=== PATIENT | male | born 1955 | race Two or more races ===

== ENCOUNTER 2020-03-02 10:47 | Outpatient (REF) | payer OTHER, SELFPAY | END 2020-03-02 10:48 | disposition home or self-care (01) | LOC: HO.LAB 10:47 | PROVIDERS: PCP Internal Medicine; Visit Provider Internal Medicine | DX: Z20.828 Contact with and (suspected) exposure to other viral communicable diseases (principal) | CPT/HCPCS: C9803; U0003 ==

== ENCOUNTER 2020-03-07 09:38 | Outpatient (REF) | payer OTHER, SELFPAY ==
[2020-03-07 10:24] LABS: Basophils Percent Auto 0.4 % (0-2); Imm Gran Abs Auto 0.02 X10*3/uL (0.00-0.03); Imm Gran Pct Auto 0.2 % (0.0-0.4); Red Cell Distribution Width 13.7 % (11.0-16.0)
[2020-03-07 10:26] LABS: Eosinophils Absolute Auto 0.1 X10*3/uL (0.0-0.4); Eosinophils Percent Auto 0.9 % (0-4); Hematocrit 38.4 % (42-52); Hemoglobin 12.4 g/dl (14.0-18.0); Lymphocytes Absolute Auto 2.5 X10*3/uL (1.2-4.9); Lymphocytes Percent Auto 29.9 % (20-40); Mean Corpuscular HGB Conc 32.3 g/dl (31.0-36.0); Mean Corpuscular Hemoglobin 28.2 pg (27.0-33.0); Mean Corpuscular Volume 87.5 fL (80-98); Monocytes Absolute Auto 0.6 X10*3/uL (0.1-1.2); Monocytes Percent Auto 7.1 % (2-11); Neutrophils Absolute Auto 5.1 X10*3/uL (2.0-8.3); Neutrophils Percent Auto 61.5 % (45-73); Platelet Count 172 X10*3/uL (160-400); Red Blood Count 4.39 X10*6/uL (4.60-5.80); White Blood Count 8.2 X10*3/uL (4.8-10.8)
[2020-03-07 11:07] LABS: Microalbum/Creatinine Ratio Ur 84.9 ug/mg cr
[2020-03-07 11:08] LABS: Alanine Aminotransferase 23 U/L (0-40); Albumin Level 4.3 g/dL (3.5-5.0); Alkaline Phosphatase 77 U/L (39-117); Anion Gap 13 (12-20); Aspartate Amino Transferase 16 U/L (5-37); Bilirubin Total 0.9 mg/dL (0.0-1.0); Blood Urea Nitrogen 28 mg/dL (9-16); Calcium 9.3 mg/dL (8.4-10.2); Carbon Dioxide 29 mmol/L (22-29); Chloride 102 mmol/L (96-108); Cholesterol 123 mg/dL; Estimated Glomerular Filt Rate > 60; Glucose Fasting 123 mg/dL (60-99); HDL Cholesterol 37 mg/dL; LDL Cholesterol Calculated 66 mg/dl; Potassium 4.7 mmol/l (3.3-5.1); Sodium 139 mmol/L (135-145); Total Protein 6.5 g/dL (6.5-8.0); Triglycerides 100 mg/dL
[2020-03-07 11:20] LABS: Folate 12.4 ng/mL (> or = 4.0); Vitamin B12 681 pg/mL (200-900)
[2020-03-07 11:30] LABS: Prostate Specific Antigen 1.67 ng/mL (<0.05-4.0); T4 Thyroxine 6.4 ug/dL (4.5-12.0); Thyroid Stimulating Hormone 2.15 uIU/mL (0.32-4.0)
== END 2020-03-07 09:39 | disposition home or self-care (01) ==
LOC: HO.10HDL 09:38
PROVIDERS: Visit Provider Internal Medicine
DX: E11.65 Type 2 diabetes mellitus with hyperglycemia (principal); E66.9 Obesity, unspecified; K21.9 Gastro-esophageal reflux disease without esophagitis; C67.9 Malignant neoplasm of bladder, unspecified; I10 Essential (primary) hypertension; E78.00 Pure hypercholesterolemia, unspecified
CPT/HCPCS: 36415; 80053; 80061; 82043; 82607; 82746; 84153; 84436; 84443; 85025

== ENCOUNTER 2020-09-14 08:50 | Outpatient (REF) | payer OTHER, SELFPAY ==
[2020-09-14 09:52] LABS: MANUAL DIFF FLAG NO
[2020-09-14 10:05] LABS: Basophils Percent Auto 0.3 % (0-2); Eosinophils Absolute Auto 0.1 X10*3/uL (0.0-0.4); Eosinophils Percent Auto 1.4 % (0-4); Hematocrit 39.9 % (42-52); Hemoglobin 12.7 g/dl (14.0-18.0); Imm Gran Abs Auto 0.03 X10*3/uL (0.00-0.03); Imm Gran Pct Auto 0.3 % (0.0-0.4); Lymphocytes Absolute Auto 2.6 X10*3/uL (1.2-4.9); Lymphocytes Percent Auto 28.2 % (20-40); Mean Corpuscular HGB Conc 31.8 g/dl (31.0-36.0); Mean Corpuscular Hemoglobin 28.3 pg (27.0-33.0); Mean Corpuscular Volume 89.1 fL (80-98); Mean Platelet Volume 13.2 fL (9.4-12.4); Monocytes Absolute Auto 0.8 X10*3/uL (0.1-1.2); Monocytes Percent Auto 8.7 % (2-11); Neutrophils Absolute Auto 5.6 X10*3/uL (2.0-8.3); Neutrophils Percent Auto 61.1 % (45-73); Platelet Count 188 X10*3/uL (160-400); Red Blood Count 4.48 X10*6/uL (4.60-5.80); Red Cell Distribution Width 13.2 % (11.0-16.0); White Blood Count 9.1 X10*3/uL (4.8-10.8)
[2020-09-14 10:18] LABS: Alanine Aminotransferase 16 U/L (0-40); Albumin Level 4.3 g/dL (3.5-5.0); Alkaline Phosphatase 88 U/L (39-117); Anion Gap 16 (12-20); Aspartate Amino Transferase 13 U/L (5-37); Blood Urea Nitrogen 22 mg/dL (9-16); Calcium 9.6 mg/dL (8.4-10.2); Carbon Dioxide 26 mmol/L (22-29); Chloride 106 mmol/L (96-108); Cholesterol 137 mg/dL; Estimated Glomerular Filt Rate 58; Glucose Random 98 mg/dL (60-115); HDL Cholesterol 42 mg/dL; LDL Cholesterol Calculated 72 mg/dl; Potassium 4.6 mmol/L (3.3-5.1); Sodium 143 mmol/L (135-145); Total Protein 6.5 g/dL (6.5-8.0); Triglycerides 118 mg/dL
[2020-09-14 10:22] LABS: Estimated Average Glucose 137 mg/dL; Hemoglobin A1C 149.6421 umol/L; Hemoglobin A1c % 6.4 %
[2020-09-14 10:39] LABS: Prostate Specific Antigen Scr 1.45 ng/mL (<0.05-4.0); Thyroid Stimulating Hormone 1.65 uIU/mL (0.32-4.0)
== END 2020-09-14 08:51 | disposition home or self-care (01) ==
LOC: HO.LAB 08:50
PROVIDERS: PCP Internal Medicine; Visit Provider Internal Medicine
DX: Z12.5 Encounter for screening for malignant neoplasm of prostate (principal); E11.65 Type 2 diabetes mellitus with hyperglycemia; E78.00 Pure hypercholesterolemia, unspecified
CPT/HCPCS: 36415; 80053; 80061; 83036; 84153; 84443; 85025

== ENCOUNTER 2020-11-20 09:00 | Outpatient (REF) | payer OTHER, SELFPAY ==
[2020-11-20 12:23] LABS: Urine Cytology See Pathology rpt
== END 2020-11-20 09:01 | disposition home or self-care (01) ==
LOC: CF 09:00
PROVIDERS: PCP Internal Medicine; Visit Provider Urology
DX: C67.9 Malignant neoplasm of bladder, unspecified (principal)
CPT/HCPCS: 52000; 88112; 99212

== ENCOUNTER → 2021-01-31 09:27 | Outpatient (BNVA) | payer MEDICARE, MEDICAID, SELFPAY | PROVIDERS: PCP Internal Medicine; Referring Provider Internal Medicine; Visit Provider Surgery | DX: K52.9 Noninfective gastroenteritis and colitis, unspecified (principal); K21.9 Gastro-esophageal reflux disease without esophagitis; R19.5 Other fecal abnormalities; E11.65 Type 2 diabetes mellitus with hyperglycemia; E11.42 Type 2 diabetes mellitus with diabetic polyneuropathy; I12.9 Hypertensive chronic kidney disease with stage 1 through stage 4 chronic kidney disease, or unspecified chronic kidney disease; E78.00 Pure hypercholesterolemia, unspecified; E66.9 Obesity, unspecified; Z68.29 Body mass index [BMI] 29.0-29.9, adult; Z88.1 Allergy status to other antibiotic agents; Z88.8 Allergy status to other drugs, medicaments and biological substances; Z79.4 Long term (current) use of insulin; Z79.899 Other long term (current) drug therapy | CPT/HCPCS: 99202 ==

== ENCOUNTER 2021-04-27 09:58 | Emergency (ER) | payer OTHER, MEDICAID, SELFPAY ==
[2021-04-27 10:37] VITALS: BP 180/89; PULSE 72; RESP 18; TEMP 36.8; O2SAT 100; BMI 29.8
== END 2021-04-27 18:32 | disposition left against medical advice (07) ==
PROVIDERS: Emergency Provider Emergency Medicine; PCP Internal Medicine
DX: R19.7 Diarrhea, unspecified (principal); R10.9 Unspecified abdominal pain
CPT/HCPCS: 99282; 99283

== ENCOUNTER 2021-04-29 07:51 | Outpatient (REF) | payer MEDICARE, SELFPAY ==
[2021-04-29 08:02] LABS: MANUAL DIFF FLAG NO
[2021-04-29 08:39] LABS: Basophils Percent Auto 0.3 % (0-2); Eosinophils Absolute Auto 0.1 X10*3/uL (0.0-0.4); Eosinophils Percent Auto 1.5 % (0-4); Hematocrit 38.8 % (42.0-52.0); Hemoglobin 12.5 g/dl (14.0-18.0); Imm Gran Abs Auto 0.03 X10*3/uL (0.00-0.03); Imm Gran Pct Auto 0.3 % (0.0-0.4); Lymphocytes Absolute Auto 2.3 X10*3/uL (1.2-4.9); Mean Corpuscular HGB Conc 32.2 g/dl (31.0-36.0); Mean Corpuscular Hemoglobin 29.1 pg (27.0-33.0); Mean Corpuscular Volume 90.4 fL (80.0-98.0); Mean Platelet Volume 12.9 fL (9.4-12.4); Monocytes Absolute Auto 0.8 X10*3/uL (0.1-1.2); Monocytes Percent Auto 8.8 % (2-11); Neutrophils Absolute Auto 6.3 x10*3/uL (2.0-8.3); Neutrophils Percent Auto 65.1 % (45-73); Platelet Count 190 X10*3/uL (160-400); Red Blood Count 4.29 X10*6/uL (4.60-5.80); Red Cell Distribution Width 13.2 % (11.0-16.0); White Blood Count 9.6 X10*3/uL (4.8-10.8)
[2021-04-29 09:00] LABS: Alanine Aminotransferase 14 U/L (0-40); Albumin Level 4.2 g/dL (3.5-5.0); Alkaline Phosphatase 80 U/L (39-117); Anion Gap 11 (12-20); Aspartate Amino Transferase 12 U/L (5-37); Bilirubin Total 0.9 mg/dL (0.0-1.0); Blood Urea Nitrogen 21 mg/dL (9-16); Calcium 9.4 mg/dL (8.4-10.2); Carbon Dioxide 28 mmol/L (22-29); Chloride 106 mmol/L (96-108); Cholesterol 122 mg/dL; Estimated Glomerular Filt Rate 51; Glucose Random 177 mg/dL (60-115); HDL Cholesterol 36 mg/dL; LDL Cholesterol Calculated 65 mg/dl; Potassium 4.4 mmol/L (3.3-5.1); Sodium 141 mmol/L (135-145); Total Protein 6.5 g/dL (6.5-8.0); Triglycerides 108 mg/dL
[2021-04-29 09:23] LABS: Free T4 (Free Thyroxine) 0.85 ng/dL (0.71-1.85); Prostate Specific Antigen Scr 2.42 ng/mL (<0.05-4.0); Thyroid Stimulating Hormone 3.04 uIU/mL (0.32-4.0)
[2021-04-29 09:32] LABS: Microalbum/Creatinine Ratio Ur 58.7 ug/mg cr
[2021-04-29 09:34] LABS: Vitamin B12 793 pg/mL (200-900)
== END 2021-04-29 07:52 | disposition home or self-care (01) ==
LOC: HO.LAB 07:51
PROVIDERS: PCP Internal Medicine; Visit Provider Internal Medicine
DX: Z12.5 Encounter for screening for malignant neoplasm of prostate (principal); E11.65 Type 2 diabetes mellitus with hyperglycemia; E78.00 Pure hypercholesterolemia, unspecified
CPT/HCPCS: 36415; 80053; 80061; 82043; 82607; 82746; 84153; 84439; 84443; 85025

== ENCOUNTER 2021-07-24 12:24 | Outpatient (REF) | payer OTHER, SELFPAY ==
[2021-07-24 13:35] LABS: MANUAL DIFF FLAG NO
[2021-07-24 14:08] LABS: Basophils Percent Auto 0.4 % (0-2); Eosinophils Percent Auto 0.4 % (0-4); Hematocrit 37.6 % (42.0-52.0); Hemoglobin 12.2 g/dl (14.0-18.0); Imm Gran Abs Auto 0.02 X10*3/uL (0.00-0.03); Imm Gran Pct Auto 0.3 % (0.0-0.4); Lymphocytes Absolute Auto 1.7 X10*3/uL (1.2-4.9); Lymphocytes Percent Auto 24.1 % (20-40); Mean Corpuscular HGB Conc 32.4 g/dl (31.0-36.0); Mean Corpuscular Hemoglobin 28.8 pg (27.0-33.0); Mean Corpuscular Volume 88.9 fL (80.0-98.0); Mean Platelet Volume 13.3 fL (9.4-12.4); Monocytes Absolute Auto 0.6 X10*3/uL (0.1-1.2); Monocytes Percent Auto 7.7 % (2-11); Neutrophils Absolute Auto 4.9 x10*3/uL (2.0-8.3); Neutrophils Percent Auto 67.1 % (45-73); Platelet Count 158 X10*3/uL (160-400); Red Blood Count 4.23 X10*6/uL (4.60-5.80); Red Cell Distribution Width 13.3 % (11.0-16.0); White Blood Count 7.2 X10*3/uL (4.8-10.8)
[2021-07-24 14:39] LABS: Alanine Aminotransferase 15 U/L (0-40); Albumin Level 4.3 g/dL (3.5-5.0); Alkaline Phosphatase 84 U/L (39-117); Anion Gap 12 (12-20); Aspartate Amino Transferase 14 U/L (5-37); Bilirubin Total 1.3 mg/dL (0.0-1.0); Blood Urea Nitrogen 24 mg/dL (9-16); Calcium 9.8 mg/dL (8.4-10.2); Carbon Dioxide 27 mmol/L (22-29); Chloride 107 mmol/L (96-108); Estimated Glomerular Filt Rate 51; Glucose Random 184 mg/dL (60-115); Iron 101 mcg/dL (45-160); Percent Iron Saturation 34 % (15-50); Potassium 4.8 mmol/L (3.3-5.1); Sodium 141 mmol/L (135-145); Total Iron Binding Capacity 296 mcg/dL (228-428); Total Protein 6.7 g/dL (6.5-8.0); Unsaturated Iron Binding 195 ug/dL
[2021-07-24 15:01] LABS: Thyroid Stimulating Hormone 1.17 uIU/mL (0.32-4.0)
[2021-07-25 09:27] LABS: CDiff Gene PCR NEGATIVE (Negative)
== END 2021-07-24 12:25 | disposition home or self-care (01) ==
LOC: HO.LAB 12:24
PROVIDERS: PCP Internal Medicine; Referring Provider Internal Medicine; Visit Provider Physician Assistant
DX: Z01.818 Encounter for other preprocedural examination (principal); K59.09 Other constipation; R14.0 Abdominal distension (gaseous); K52.9 Noninfective gastroenteritis and colitis, unspecified
CPT/HCPCS: 36415; 80053; 83540; 84443; 85025; 87045; 87046; 87329; 87493; 99202

== ENCOUNTER 2021-11-26 09:10 | Outpatient (REF) | payer OTHER, SELFPAY ==
[2021-11-26 17:04] LABS: Urine Cytology See Pathology rpt
== END 2021-11-26 09:11 | disposition home or self-care (01) ==
LOC: HO.LAB 09:10
PROVIDERS: Visit Provider Urology
DX: C67.9 Malignant neoplasm of bladder, unspecified (principal); N40.1 Benign prostatic hyperplasia with lower urinary tract symptoms
CPT/HCPCS: 52000; 88112; 99212

== ENCOUNTER 2022-05-02 07:41 | Outpatient (REF) | payer OTHER, SELFPAY ==
--- NOTE | ~2022-05-02 | US_ITS ---
EXAMINATION: US ABDOMEN COMPLETE CLINICAL INFORMATION: Other specified abnormal findings of blood chemistry. COMPARISON: Ultrasound abdomen complete 02/17/2018. CT abdomen and pelvis 09/09/2017. Renal ultrasound 06/25/2011. TECHNIQUE: Real-time imaging of the abdominal viscera. FINDINGS: PANCREAS: Hyperechoic in appearance ABDOMINAL AORTA: The proximal, mid, and distal segments are normal in caliber. INFERIOR VENA CAVA: Visualized portions are normal. LIVER: The liver is normal in size. Diffuse increased echogenicity of the liver parenchyma. No focal hepatic lesion. There is no intrahepatic biliary duct dilatation seen. GALLBLADDER: Surgically absent. COMMON BILE DUCT: Normal in caliber measuring 0.4 cm in diameter. RIGHT KIDNEY: Benign-appearing 2.2 cm lower pole cyst. Benign-appearing mid pole 1.3 cm cyst. Followup imaging is not routinely recommended for benign appearing cysts. No hydronephrosis or renal calculi. The kidney measures 10.4 cm in maximum dimension. LEFT KIDNEY: Normal. No hydronephrosis. No renal calculi or focal parenchymal lesions. The kidney measures 10.9 cm in maximum dimension. SPLEEN: Normal. The spleen measures 9.8 cm in maximum dimension. FREE FLUID: None. US/US abdomen complete IMPRESSION: 1. Diffuse increased echogenicity of the liver parenchyma. This is a nonspecific finding and may reflect hepatic steatosis. 2. Hyperechoic appearance of the pancreas. Recommend correlation with amylase and lipase. 3. Benign-appearing right renal cysts. Followup imaging is not routinely recommended for benign appearing cysts.
== END 2022-05-02 07:42 | disposition home or self-care (01) ==
LOC: HO.US 07:41
PROVIDERS: Visit Provider Internal Medicine
DX: R10.9 Unspecified abdominal pain (principal); R79.89 Other specified abnormal findings of blood chemistry
CPT/HCPCS: 76700

== ENCOUNTER 2022-06-02 08:58 | Outpatient (REF) | payer OTHER, SELFPAY ==
[2022-06-02 09:08] LABS: MANUAL DIFF FLAG NO
[2022-06-02 09:45] LABS: Basophils Percent Auto 0.5 % (0-2); Eosinophils Absolute Auto 0.2 X10*3/uL (0.0-0.4); Eosinophils Percent Auto 2.7 % (0-4); Hematocrit 37.3 % (42.0-52.0); Hemoglobin 12.3 g/dl (14.0-18.0); Imm Gran Abs Auto 0.03 X10*3/uL (0.00-0.03); Imm Gran Pct Auto 0.4 % (0.0-0.4); Immature Retic Fraction 13.6 % (2.3-13.4); Lymphocytes Absolute Auto 2.6 X10*3/uL (1.2-4.9); Lymphocytes Percent Auto 30.9 % (20-40); Mean Corpuscular Hemoglobin 29.2 pg (27.0-33.0); Mean Corpuscular Volume 88.6 fL (80.0-98.0); Mean Platelet Volume 12.8 fL (9.4-12.4); Monocytes Absolute Auto 0.8 X10*3/uL (0.1-1.2); Monocytes Percent Auto 9.3 % (2-11); Neutrophils Absolute Auto 4.8 x10*3/uL (2.0-8.3); Neutrophils Percent Auto 56.2 % (45-73); Platelet Count 186 X10*3/uL (160-400); Red Blood Count 4.21 X10*6/uL (4.60-5.80); Red Cell Distribution Width 12.4 % (11.0-16.0); Retic HGB Equivalent 33.9 pg (30.0-35.0); Reticulocyte Percent 1.4 % (0.5-1.8); White Blood Count 8.5 X10*3/uL (4.8-10.8)
[2022-06-02 10:13] LABS: Creatinine Urine 181.39 mg/dL
[2022-06-02 10:15] LABS: Appearance Urine Clear; Color Urine Yellow; Glucose Urine UA Negative (Negative); Leukocyte Esterase Urine Negative (Negative); Nitrite Urine Negative (Negative); PH 5.5 (5.0-9.0); UMIC TRIGGER UA YES; Urine Blood Negative (Negative); Urine Ketones Negative (Negative); Urine Protein 30 (1+) mg/dL (Neg-Trace)
[2022-06-02 10:16] LABS: Alanine Aminotransferase 15 U/L (0-40); Albumin Level 4.3 g/dL (3.5-5.0); Alkaline Phosphatase 87 U/L (39-117); Anion Gap 12 (12-20); Aspartate Amino Transferase 13 U/L (5-37); Bilirubin Total 1.1 mg/dL (0.0-1.0); Blood Urea Nitrogen 27 mg/dL (9-16); Calcium 9.3 mg/dL (8.4-10.2); Carbon Dioxide 26 mmol/L (22-29); Chloride 108 mmol/L (96-108); Cholesterol 159 mg/dL; Estimated Glomerular Filt Rate 35; Glucose Random 131 mg/dL (60-115); HDL Cholesterol 36 mg/dL; Iron 71 mcg/dL (45-160); LDL Cholesterol Calculated 86 mg/dl; Percent Iron Saturation 29 % (15-50); Potassium 4.2 mmol/L (3.3-5.1); Sodium 142 mmol/L (135-145); Total Iron Binding Capacity 241 mcg/dL (228-428); Total Protein 6.5 g/dL (6.5-8.0); Triglycerides 186 mg/dL; Unsaturated Iron Binding 170 ug/dL
[2022-06-02 10:19] LABS: Bacteria Urine None Seen (None Seen); Hyaline Casts Urine 0-2 /LPF (0-2); RBC Urine 0-2 /HPF (0-2); Squamous Epithelial Cell Urine 0-2 /HPF (0-2); WBC Urine 0-5 /HPF (0-5)
[2022-06-02 10:47] LABS: Ferritin 71 ng/mL (20-250); Folate 4.9 ng/mL (> or = 4.0); Free T4 (Free Thyroxine) 0.83 ng/dL (0.71-1.85); Thyroid Stimulating Hormone 1.81 uIU/mL (0.32-4.0); Vitamin B12 1147 pg/mL (200-900)
== END 2022-06-02 08:59 | disposition home or self-care (01) ==
LOC: HO.LAB 08:58
PROVIDERS: PCP Internal Medicine; Visit Provider Internal Medicine
DX: Z12.5 Encounter for screening for malignant neoplasm of prostate (principal); R10.9 Unspecified abdominal pain; E11.65 Type 2 diabetes mellitus with hyperglycemia; I10 Essential (primary) hypertension; E78.00 Pure hypercholesterolemia, unspecified
CPT/HCPCS: 36415; 80053; 80061; 81001; 82043; 82607; 82728; 82746; 83540; 84153; 84439; 84443; 85025; 85045

== ENCOUNTER 2022-07-07 10:23 | Emergency (ER) | payer OTHER, SELFPAY ==
--- NOTE | ~2022-07-07 | XR_ITS ---
EXAMINATION: XR CHEST CLINICAL INFORMATION: Left chest wall pain COMPARISON: Chest radiographs 07/18/2020, 07/17/2009; CT abdomen 09/09/2017 TECHNIQUE: 2 views of the chest were obtained. FINDINGS: No pneumothorax, pleural reaction, or effusion. The lungs are clear and there is no infiltrate or airspace opacities. The heart is normal in size. The vascularity is normal. Tapering at the cardiophrenic angles is consistent with areolar tissue on the CT abdomen. The hilar and mediastinal contours and bony structures are stable. XR/XR chest 2V IMPRESSION: Unremarkable examination.
[2022-07-07 10:34] VITALS: BP 166/69; PULSE 74; RESP 18; TEMP 36.7; O2SAT 98; BMI 28.7
[2022-07-07 10:59] LABS: MANUAL DIFF FLAG NO
[2022-07-07 11:00] LABS: Basophils Percent Auto 0.4 % (0-2); Eosinophils Absolute Auto 0.1 X10*3/uL (0.0-0.4); Eosinophils Percent Auto 1.1 % (0-4); Hematocrit 34.8 % (42.0-52.0); Hemoglobin 11.4 g/dl (14.0-18.0); Imm Gran Abs Auto 0.01 X10*3/uL (0.00-0.03); Imm Gran Pct Auto 0.1 % (0.0-0.4); Lymphocytes Absolute Auto 1.9 X10*3/uL (1.2-4.9); Lymphocytes Percent Auto 24.7 % (20-40); Mean Corpuscular HGB Conc 32.8 g/dl (31.0-36.0); Mean Corpuscular Hemoglobin 29.3 pg (27.0-33.0); Mean Corpuscular Volume 89.5 fL (80.0-98.0); Mean Platelet Volume 12.6 fL (9.4-12.4); Monocytes Absolute Auto 0.5 X10*3/uL (0.1-1.2); Monocytes Percent Auto 7.2 % (2-11); Neutrophils Percent Auto 66.5 % (45-73); Platelet Count 170 X10*3/uL (160-400); Red Blood Count 3.89 X10*6/uL (4.60-5.80); Red Cell Distribution Width 12.3 % (11.0-16.0); White Blood Count 7.5 X10*3/uL (4.8-10.8)
[2022-07-07 11:18] LABS: Alanine Aminotransferase 13 U/L (0-40); Alkaline Phosphatase 80 U/L (39-117); Anion Gap 13 (12-20); Aspartate Amino Transferase 13 U/L (5-37); Bilirubin Total 1.2 mg/dL (0.0-1.0); Blood Urea Nitrogen 21 mg/dL (9-16); Calcium 9.1 mg/dL (8.4-10.2); Carbon Dioxide 24 mmol/L (22-29); Chloride 108 mmol/L (96-108); Creatinine Clr Calc Pharmacy 46.6; Estimated Glomerular Filt Rate 37; Glucose Random 220 mg/dL (60-115); Lipase 51 U/L (8-78); Potassium 4.8 mmol/L (3.3-5.1); Sodium 140 mmol/L (135-145); Total Protein 6.1 g/dL (6.5-8.0)
[2022-07-07 12:53] LABS: Appearance Urine Clear; Color Urine Yellow; Glucose Urine UA Negative (Negative); Leukocyte Esterase Urine Negative (Negative); Nitrite Urine Negative (Negative); PH 5.5 (5.0-9.0); UMIC TRIGGER UACC YES; Urine Blood Negative (Negative); Urine Ketones Negative (Negative); Urine Protein 30 (1+) mg/dL (Neg-Trace)
[2022-07-07 12:56] LABS: Bacteria Urine None Seen (None Seen); Hyaline Casts Urine 0-2 /LPF (0-2); RBC Urine 0-2 /HPF (0-2); Squamous Epithelial Cell Urine 0-2 /HPF (0-2); WBC Urine 0-5 /HPF (0-5)
[2022-07-07 12:59] VITALS: BP 142/64; PULSE 61; RESP 12; TEMP 36.7; O2SAT 99
--- NOTE | 2022-07-07 14:07 | ED.ABDPAIN ---
HPI - Abdominal Pain General Chief Complaint: Abdominal Pain Stated Complaint: abd pain Time Seen by Provider: 07/07/22 12:08 Source: patient and family Mode of arrival: ambulatory History of Present Illness HPI narrative: This is a 67-year-old male who presents with left-sided abdominal wall pain that has persisted since he was shoveling snow approximately 1 and half weeks ago. This is not been associated with any bowel or bladder dysfunction, has not been associated with nausea or vomiting, fevers or chills. Related Data Previous Rx's Medication Instructions Recorded pen needle, diabetic 31 gauge x #100 ea 03/22/2006/26 (BD Ultra-Fine Mini Pen Needle) ketoconazole 2 % shampoo 1 appl topical 2XW #120 mL 12/28/20 fexofenadine 180 mg tablet 180 mg PO DAILY 90 days #90 tabs 04/04/21 (Hansa Allergy) simethicone 80 mg chewable tablet 80 mg PO TID-QID PRN abdominal 07/10/21 (Gas Relief (simethicone)) distention #30 tabs bisacodyl 5 mg tablet,delayed 10 mg PO ONCE colonoscopy prep 1 07/24/21 release (Dulcolax (bisacodyl)) day #2 tabs polyethylene glycol 3350 17 238 g PO ONCE 1 day #238 grams 07/24/21 gram/dose oral powder (Miralax) enalapril maleate 20 mg tablet 20 mg PO BID 90 days #180 tabs 10/18/21 loperamide 2 mg tablet 2 mg PO Q6H PRN loose stool #30 01/27/22 tabs atorvastatin 20 mg tablet 20 mg PO QPM #90 tabs 01/30/22 omeprazole 20 mg capsule,delayed 20 mg PO DAILY #30 caps 02/02/22 release glipizide 2.5 mg tablet, extended 2.5 mg PO DAILY #90 tabs 02/04/22 release 24 hr metformin 500 mg tablet 500 mg PO BID 90 days #180 tabs 02/06/22 cyanocobalamin (vitamin B-12) 1,000 mcg sublingual DAILY #90 tabs 04/04/22 1,000 mcg sublingual tablet dulaglutide 0.75 mg/0.5 mL 0.75 mg (0.5 mL) subcut QWEEK 90 06/03/22 subcutaneous pen injector days #13 mL (Trulicity) amlodipine 2.5 mg tablet 2.5 mg PO DAILY 30 days #90 tabs 06/06/22 metoprolol succinate 100 mg 100 mg PO DAILY #90 tabs 07/01/22 tablet,extended release 24 hr Allergies Allergy/AdvReac Type Severity Reaction Status Date / Time ciprofloxacin [CIPROFLOXACIN] Allergy Unknown RASH, Verified 04/23/22 15:03 anaphylaxis empagliflozin Allergy Unknown UTI Verified 04/23/22 15:03 [From Jardiance] pioglitazone Allergy Unknown Swelling Verified 04/23/22 15:03 tamsulosin Allergy Unknown rash? Verified 04/23/22 15:03 Review of Systems Review of Systems Pertinent positives and negatives as stated in HPI [facility] Past Medical History Source: nursing notes reviewed Medical History Chronic diarrhea Diabetic neuropathy GERD (gastroesophageal reflux disease) Hypercholesterolemia Hypertension Lumbar spondylosis Obesity (BMI 30-39.9) Overweight (BMI 25.0-29.9) Type 2 diabetes mellitus with hyperglycemia Urinary bladder cancer Surgical History History of appendectomy History of cholecystectomy History of colonoscopy Family History Family History Father Diabetes Myocardial infarct Mother No problems noted. Maternal Grandmother Stomach cancer Maternal Uncle Cancer Social History Social History Housing: Apartment Alcohol intake: never Patient Tobacco Use Status: Never used Tobacco e-Cigarette/Vaping Use: Never Used Second Hand Smoke Exposure: No Advance Directives: No Advance Directives Information Provided: Yes service: No Current occupational status: disabled Cognitive needs: No Hearing needs: No Vision needs: Yes Physical Exam ED Vital Signs: Vital Signs - 24 hr 07/07/22 10:34 07/07/22 12:59 Temperature 98.1 F 98.0 F Pulse Rate 74 61 Respiratory Rate 18 12 Blood Pressure 166/69 H 142/64 H Pulse Oximetry 98 99 Oxygen Delivery Method Room Air Room Air BMI result Body Mass Index 28.7 VITAL SIGNS: Reviewed. GENERAL: Well developed, well nourished, in no acute distress. HEAD: Normocephalic/atraumatic EYES: PERRLA, EOMI EARS: Ext canals without abnormality LUNGS: Normal breath sounds. No adventitious sounds or accessory muscle use. SpO2<99> CARDIOVASCULAR: Regular rate and rhythm without noted murmurs ABDOMEN: Soft, non-tender, non-distended with bowel sounds, mild tenderness on palpation over the left abdominal wall without noted ecchymosis or hernias MUSCULOSKELETAL: No tenderness, deformities, or effusions noted on gross inspection. EXTREMITIES: No cyanosis, clubbing or edema. SKIN: Inspection of the skin reveals no rashes NEUROLOGIC: Alert and oriented x 4. Strength and sensation to light touch were grossly intact x 4. Medical Decision Making Medical Decision Making MDM Narrative: 67-year-old male with history and clinical presentation consistent with abdominal wall strain after review of all investigations. There is no evidence to suggest acute infection, hernia, or internal injury. Differential Diagnosis Please see the discussion above Lab Data Please see the discussion above 07/07/22 10:54 07/07/22 10:54 Labs: Lab Results 07/07/22 07/07/22 07/07/22 Range/Units 10:54 10:54 12:44 WBC 7.5 (4.8-10.8) X10*3/uL RBC 3.89 L (4.60-5.80) X10*6/uL Hgb 11.4 L (14.0-18.0) g/dl Hct 34.8 L (42.0-52.0) % MCV 89.5 (80.0-98.0) fL MCH 29.3 (27.0-33.0) pg MCHC 32.8 (31.0-36.0) g/dl RDW 12.3 (11.0-16.0) % Plt Count 170 (160-400) X10*3/uL MPV 12.6 H (9.4-12.4) fL Immature Gran % (Auto) 0.1 (0.0-0.4) % Neut % (Auto) 66.5 (45-73) % Lymph % (Auto) 24.7 (20-40) % Caldwell % (Auto) 7.2 (2-11) % Eos % (Auto) 1.1 (0-4) % Baso % (Auto) 0.4 (0-2) % Lymph # (Auto) 1.9 (1.2-4.9) X10*3/uL Caldwell # (Auto) 0.5 (0.1-1.2) X10*3/uL Eos # (Auto) 0.1 (0.0-0.4) X10*3/uL Baso # (Auto) 0.0 (0.0-0.2) X10*3/uL Abs Immat Gran (auto) 0.01 (0.00-0.03) X10*3/uL Absolute Neuts (auto) 5.0 (2.0-8.3) x10*3/uL Absolute Nucleated RBC 0.000 (0.0-0.012) X10*3/uL Nucleated RBC % (auto) 0.0 (0.0-0.2) /100WBC Sodium 140 (135-145) mmol/L Potassium 4.8 (3.3-5.1) mmol/L Chloride 108 (96-108) mmol/L Carbon Dioxide 24 (22-29) mmol/L Anion Gap 13 (12-20) BUN 21 H (9-16) mg/dL Creatinine 1.82 H (0.5-1.4) mg/dL Estim Creat Clear Calc 46.6 Estimated GFR 37 Random Glucose 220 H (60-115) mg/dL Calcium 9.1 (8.4-10.2) mg/dL Total Bilirubin 1.2 H (0.0-1.0) mg/dL AST 13 (5-37) U/L ALT 13 (0-40) U/L Alkaline Phosphatase 80 (39-117) U/L Total Protein 6.1 L (6.5-8.0) g/dL Albumin 4.0 (3.5-5.0) g/dL Lipase 51 (8-78) U/L Urine Color Yellow Urine Appearance Clear Urine pH 5.5 (5.0-9.0) Ur Specific Clements 1.020 (1.005-1.025) Urine Protein 30 (1+) H (Neg-Trace) mg/dL Urine Glucose (UA) Negative (Negative) mg/dL Urine Ketones Negative (Negative) mg/dL Urine Blood Negative (Negative) Urine Nitrite Negative (Negative) Ur Leukocyte Esterase Negative (Negative) Urine RBC 0-2 (0-2) /HPF Urine WBC 0-5 (0-5) /HPF Ur Squamous Epith Cells 0-2 (0-2) /HPF Urine Bacteria None Seen (None Seen) Hyaline Casts 0-2 (0-2) /LPF Radiology Impression Radiologist Impression: My interpretation is in agreement with radiology's impression of the imaging studies. External Record Review External record reviewed: Outpatient record and Prior outpatient labs Chronic Conditions Patient?s care impacted by: Hypertension Discharge Plan Discharge Clinical Impression: Abdominal wall pain, Muscle strain Patient Disposition: Home, Self-Care Instructions: Muscle Strain (ED) Additional Instructions: 1. Tylenol 1000 mg, por v?a oral, cada 6 horas seg?n sea necesario para controlar el dolor. No exceda los 4000 mg dentro de las 24 horas. 2. Ibuprofeno 400 mg, por v?a oral con leche o alimentos, cada 6 horas seg?n sea necesario para controlar el dolor. Le recomiendo que tome jb medicamento con Tylenol para mejorar el alivio de los s?ntomas. 3. Parche de lidoca?na, aplique en el ?alex de m?xima sensibilidad dharmesh se indica en el empaque exterior. 4. Esta distensi?n muscular tardar? un tiempo en resolverse por completo. 5. Realice un seguimiento con ziegler proveedor de atenci?n primaria en los pr?ximos 1 a 2 d?as para milagro reevaluaci?n y un manejo ambulatorio adicional. Regrese a la arabella de emergencias si los s?ntomas empeoran. 1. Tylenol 1000 mg, orally, every 6 hours as needed for pain control. Do not exceed 4000 mg within 24 hours. 2. Ibuprofen 400 mg, orally with milk or food, every 6 hours as needed for pain control. I recommend that you take this medication with Tylenol for improved symptom relief. 3. Lidocaine patch, apply to area of maximal tenderness as directed on the outside packaging. 4. This muscle strain will take time to fully resolve. 5. Please follow-up with your primary care provider in the next 1-2 days for re-evaluation and further outpatient management. Return to the ER for any worsening symptoms. Prescriptions: No Action ketoconazole 2 % shampoo 1 appl topical 2XW Qty: 120 0RF enalapril maleate 20 mg tablet 20 mg PO BID 90 Days Qty: 180 2RF loperamide 2 mg tablet 2 mg PO Q6H PRN (Reason: loose stool) Qty: 30 1RF atorvastatin 20 mg tablet 20 mg PO QPM Qty: 90 3RF omeprazole 20 mg capsule,delayed release(DR/EC) 20 mg PO DAILY Qty: 30 5RF glipizide 2.5 mg tablet extended release 24hr 2.5 mg PO DAILY Qty: 90 2RF metformin 500 mg tablet 500 mg PO BID 90 Days Qty: 180 3RF cyanocobalamin (vitamin B-12) 1,000 mcg tablet, sublingual 1,000 mcg sublingual DAILY Qty: 90 3RF Trulicity 0.75 mg/0.5 mL pen injector 0.75 mg subcut QWEEK 90 Days Qty: 13 3RF amlodipine 2.5 mg tablet 2.5 mg PO DAILY 30 Days Qty: 90 2RF metoprolol succinate 100 mg tablet extended release 24 hr 100 mg PO DAILY Qty: 90 3RF fexofenadine [Hansa Allergy] 180 mg tablet 180 mg PO DAILY 90 Days Qty: 90 3RF (DME) pen needle, diabetic [BD Ultra-Fine Mini Pen Needle] 31 gauge x 3/16 needle See Rx Instructions .ROUTE .MEDSUPPLY Qty: 100 3RF Rx Instructions: As directed simethicone [Gas Relief (simethicone)] 80 mg tablet,chewable 80 mg PO TID-QID PRN (Reason: abdominal distention) Qty: 30 0RF bisacodyl [Dulcolax (bisacodyl)] 5 mg tablet,delayed release (DR/EC) 10 mg PO ONCE 1 Days Qty: 2 0RF Rx Instructions: Take 2 tablets by mouth at 12:00pm the day before your procedure. polyethylene glycol 3350 [Miralax] 17 gram/dose powder 238 g PO ONCE 1 Days Qty: 238 0RF Rx Instructions: Take as directed by mouth the day before your procedure. Referrals: Po,Concepción Lind MD [Primary Care Provider] - Print Language: Georgian
[2022-07-07] MEDS: Acetaminophen 325 MG TABLET 975 MG PO (14:13)
[2022-07-07] MEDS: Lidocaine 4 % Patch ADH..PATCH 1 PATCH TRANSDERMA (14:13)
[2022-07-07] MEDS: Ibuprofen 400 MG TABLET PO (14:13)
== END 2022-07-07 14:20 | disposition home or self-care (01) ==
PROVIDERS: Emergency Provider Student in an Organized Health Care Education/Training Program; PCP Internal Medicine
DX: R10.30 Lower abdominal pain, unspecified (principal); R07.89 Other chest pain; Z79.899 Other long term (current) drug therapy
CPT/HCPCS: 36415; 71046; 80053; 81001; 83690; 85025; 99283

== ENCOUNTER 2022-10-31 14:58 | Outpatient (AMB) | payer OTHER, SELFPAY ==
--- NOTE | 2022-10-31 15:08 | MHC.PC.OV ---
Vital Signs 10/31/22 15:09 Height 5 ft 9 in Weight 205 lb BMI 30.3 BP 122/70 Blood Pressure Location Rt brachial Position Sitting Pulse 60 Pulse Source Pulse Oximeter Pulse Oximetry (%) 97 Intake Visit Reasons: DM , CHolesterol Intake Note: pt is here for cholesterol and dm [employer] St[employer]r Required: No Allergies ciprofloxacin [CIPROFLOXACIN] Allergy (Unknown, Verified 10/31/22 15:08) RASH, anaphylaxis empagliflozin [From Jardiance] Allergy (Unknown, Verified 10/31/22 15:08) UTI pioglitazone Allergy (Unknown, Verified 10/31/22 15:08) Swelling tamsulosin Allergy (Unknown, Verified 10/31/22 15:08) rash? Medication List - Last Reconciled 10/31/22 by Concepción Oh MD amlodipine 2.5 mg PO DAILY 30 days atorvastatin 20 mg PO QPM bisacodyl (Dulcolax (bisacodyl)) 10 mg (2 x 5 mg) PO ONCE 1 day cholestyramine-aspartame 4 gram (Prevalite) 4 grams PO BID cyanocobalamin (vitamin B-12) 1,000 mcg sublingual DAILY dulaglutide 1.5 mg (0.5 mL) subcut QWEEK 30 days enalapril maleate 20 mg PO BID 90 days fexofenadine (Hansa Allergy) 180 mg PO DAILY 90 days glipizide ER 2.5 mg PO DAILY hydroxyzine HCl 25 mg PO TID PRN ketoconazole 2% 1 appl topical 2XW loperamide 2 mg PO Q6H PRN metoprolol succinate ER 100 mg PO DAILY omeprazole 20 mg PO DAILY pen needle, diabetic (BD Ultra-Fine Mini Pen Needle) As directed simethicone (Gas Relief (simethicone)) 80 mg PO TID-QID PRN Tobacco use date assessed: 07/30/22 Fall risk assessment: No Falls in past year Last assessed Fall Risk: 10/31/22 Dental Screening Dental Screen Date: 10/31/22 Did you have a dental visit in the last 12 months?: No Did you have a dental problem in the last 6 months where you did not have access to dental care?: No Was dental information given to patient?: Yes HPI DM , CHolesterol HPI Details 67-year-old obese male with diabetes mellitus GERD hypercholesterolemia hypertension last seen in July 2022 last cholesterol test in May 2022 patient does have kidney problem [facility] Medical History Chronic diarrhea Diabetic neuropathy GERD (gastroesophageal reflux disease) Hypercholesterolemia Hypertension Lumbar spondylosis Obesity (BMI 30-39.9) Overweight (BMI 25.0-29.9) Type 2 diabetes mellitus with hyperglycemia Urinary bladder cancer Surgical History History of appendectomy History of cholecystectomy History of colonoscopy Family History Father Diabetes Myocardial infarct Mother No problems noted. Maternal Grandmother Stomach cancer Maternal Uncle Cancer Social History Housing: Apartment Alcohol intake: never Patient Tobacco Use Status: Never used Tobacco e-Cigarette/Vaping Use: Never Used Second Hand Smoke Exposure: No service: No Current occupational status: disabled Cognitive needs: No Hearing needs: No Vision needs: Yes Questionnaire Thrive Questionnaire Date Thrive assessed: 04/23/22 MADELINE-7 AMB Questionnaire MADELINE-7 Date MADELINE - 7 assessed: 04/23/22 Source: Developed by Drs. Yosi Melchor, Radha Laura, Shivam Mcnally and colleagues, with an educational jamar from [employer]. Physical exam (Primary Care) Vital Signs: Last Vital Signs Pulse 60 10/31/22 15:09 BP 122/70 10/31/22 15:09 Pulse Ox 97 10/31/22 15:09 BMI result Body Mass Index 30.3 Tobacco/Smoking Status: Tobacco use Status Tobacco use date assessed 07/30/22 10/31/22 15:16 Patient Tobacco Use Status Never used Tobacco 10/31/22 15:16 e-Cigarette/Vaping Use Never Used 10/31/22 15:16 Thrive Assessment: Date of Thrive Assessment Date Thrive assessed 04/23/22 10/31/22 15:16 Const General: alert; No acute distress Eyes Conjunctivae: conjunctivae normal Resp Auscultation: clear to auscultation bilaterally Cardio Rate: regular rate Rhythm: regular rhythm GI Inspection: Yes normal to inspection Extrem General: Yes normal to inspection and No edema Results AMB Hemoglobin A1c AMB Hemoglobin A1c 7.2 % Last Edit by Daron Brewster CMA on 10/31/22 15:20 Results Reviewed Results Reviewed: Laboratory Last Values Hgb A1c (Clinic) 7.2 % (4.0-6.0) H 10/31/22 15:19 Assessment and Plan Assessment & Plan (1) Type 2 diabetes mellitus with hyperglycemia: Code(s): E11.65 - Type 2 diabetes mellitus with hyperglycemia Qualifiers: 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 Hemoglobin A1c goal of less than 7.0 will increase the Trulicity. Patient's metformin was taken off due to renal insufficiency. Will need to repeat this test if the number continues to be elevated will need Nephrology (2) GERD (gastroesophageal reflux disease): Code(s): K21.9 - Gastro-esophageal reflux disease without esophagitis Qualifiers: Esophagitis presence: without esophagitis Qualified Code(s): K21.9 - Gastro-esophageal reflux disease without esophagitis Plan: Avoid the foods that causes that usually spicy foods, tomato products, juices, coffee, soda and foods that your sensitive to. After eating do not lie down, allow 3-4 hours before in lie down. And keep the head of bed above 30 degrees to avoid the acid from going up. (3) Hypercholesterolemia: Code(s): E78.00 - Pure hypercholesterolemia, unspecified Plan: Avoid fried foods, chicken skin, eggs, butter margarine, pastries and meat. Be it pork or beef they have a lot of cholesterol LDL goal of less than 100 and triglyceride of less than 150 (4) Obesity (BMI 30-39.9): Code(s): E66.9 - Obesity, unspecified Plan: Diet and exercise (5) Urinary bladder cancer: Comment: November 2017 Dr. Stark Code(s): C67.9 - Malignant neoplasm of bladder, unspecified Plan: Patient is followed up by Urology (6) Hypertension: Code(s): I10 - Essential (primary) hypertension Qualifiers: Hypertension type: essential hypertension Qualified Code(s): I10 - Essential (primary) hypertension Plan: Continue with blood pressure medication. Decrease salt intake and exercise patient is taking metoprolol 100 mg once a day enalapril 20 mg twice a day and amlodipine 2.5 mg once a day (7) Renal insufficiency: Code(s): N28.9 - Disorder of kidney and ureter, unspecified Plan: Concern that the creatinine is elevated. Repeat blood work requested Orders: Orders Comprehensive Met. Panel Today N28.9 - Disorder of kidney and ureter, unspecified Vitamin B12 and Folate Today N28.9 - Disorder of kidney and ureter, unspecified Ferritin Today N28.9 - Disorder of kidney and ureter, unspecified IRON PROFILE Today N28.9 - Disorder of kidney and ureter, unspecified Complete Blood Count Auto Diff Today N28.9 - Disorder of kidney and ureter, unspecified Reticulocyte Count Today N28.9 - Disorder of kidney and ureter, unspecified AMB Hemoglobin A1c Today E11.65 - Type 2 diabetes mellitus with hyperglycemia Referrals Gastroenterology Referral K52.9 - Noninfective gastroenteritis and colitis, unspecified Medications: Changed From dulaglutide 1.5 mg (0.5 mL) subcut QWEEK 30 days 2 mL 3RF E11.65 - Type 2 diabetes mellitus with hyperglycemia To dulaglutide 3 mg (0.5 mL) subcut QWEEK 30 days 2 mL 3RF E11.65 - Type 2 diabetes mellitus with hyperglycemia Coding Level of Care Code Est Pt Level 4 (58892) Diagnoses Type 2 diabetes mellitus with hyperglycemia E11.65 Diabetes mellitus usp insulin use: without usp use GERD (gastroesophageal reflux disease) K21.9 Esophagitis presence: without esophagitis Hypercholesterolemia E78.00 Obesity (BMI 30-39.9) E66.9 Urinary bladder cancer C67.9 Hypertension I10 Hypertension type: essential hypertension Renal insufficiency N28.9
[2022-10-31 15:09] VITALS: BP 122/70; PULSE 60; O2SAT 97; BMI 30.3
== END 2022-10-31 16:09 | disposition home or self-care (01) ==
PROVIDERS: Visit Provider Internal Medicine
DX: E11.65 Type 2 diabetes mellitus with hyperglycemia (principal); K21.9 Gastro-esophageal reflux disease without esophagitis; E66.9 Obesity, unspecified; Z68.30 Body mass index [BMI] 30.0-30.9, adult; E78.00 Pure hypercholesterolemia, unspecified; C67.9 Malignant neoplasm of bladder, unspecified; I10 Essential (primary) hypertension; N28.9 Disorder of kidney and ureter, unspecified
CPT/HCPCS: 83036; 99214

== ENCOUNTER 2022-11-27 08:27 | Outpatient (AMB) | payer OTHER, SELFPAY ==
--- NOTE | 2022-11-27 08:38 | A.OFFVIS_ITS ---
Intake Intake Visit Reasons: Yearly Cysto Intake Note: Patient is present for Cystoscopy Urology Med: None Antibiotic Allergy: Cipro Blood Thinner: None Pharmacy: [facility] pharmacy Disposable Cystoscope used during Procedure LOT#: [id number] EXP: 08/15/2024 Urine will be sent for Cytology Allergies ciprofloxacin [CIPROFLOXACIN] Allergy (Unknown, Verified 10/31/22 15:08) RASH, anaphylaxis empagliflozin [From Jardiance] Allergy (Unknown, Verified 10/31/22 15:08) UTI pioglitazone Allergy (Unknown, Verified 10/31/22 15:08) Swelling tamsulosin Allergy (Unknown, Verified 10/31/22 15:08) rash? HPI HPI Comments History of Present Illness Details Ney BROWN is a very pleasant frisian speaking male. They are a patient of Dr Oh. They are seen in the office today for the following urologic conditions. - bladder cancer - BPH prior TURP Here for yearly cystoscopy No evidence of recurrence 12 month follow-up Open bladder neck Bladder Cancer:? Low-grade bladder cancer November 2017 Minimal issues with urination No hematuria Normal cystoscopy ? Bladder cancer was initially diagnosed?during evaluation for gross hematuria ?- Dr Stark 11/28.? Bladder intervention(s) performed?11/28 , TURBT, T1 invades subepthium, Low Grade.? Recurrence Risk per EOR[facility] ?Intermediate Risk.? Bladder cancer risk factors? Organic Solvent exposure ?exposure to solvents from computer pats ? smoking ?Yes ? hair dye exposure ?No ? use of pioglitazone ?No ? chronic cystitis ?No ? prior chemotherapy with cyclophosphamide ?No ? family history of bladder cancer ?No ? pelvic radiation ?No ? Prior Cystoscopy?02/28 right side wall scar ?07/30 right wall scar, mild reddness ?11/29 right sidewall scar ?06/02 , Negative ?11/30 Unchanged - scar on right, 12/01 no change scar right side, 12/02 NAD ? Prior Cytology?11/28 NAD ?03/30 Negative ?11/29 NAD ?06/02 NAD.? Prior Imaging?11/28 , Retrogrades, Negative.? Previous intravesical therapy?12/29 BCG Induction.? Planned treatment?surveillance protocol.? ON LICENSE OF [facility] Medical History Chronic diarrhea Diabetic neuropathy GERD (gastroesophageal reflux disease) Hypercholesterolemia Hypertension Lumbar spondylosis Obesity (BMI 30-39.9) Overweight (BMI 25.0-29.9) Type 2 diabetes mellitus with hyperglycemia Urinary bladder cancer Surgical History History of appendectomy History of cholecystectomy History of colonoscopy Family History Father Diabetes Myocardial infarct Mother No problems noted. Maternal Grandmother Stomach cancer Maternal Uncle Cancer Social History Housing: Apartment Alcohol intake: never Patient Tobacco Use Status: Never used Tobacco e-Cigarette/Vaping Use: Never Used Second Hand Smoke Exposure: No service: No Current occupational status: disabled Cognitive needs: No Hearing needs: No Vision needs: Yes Office Procedures Cystoscopy Consent Discussed risk and benefit or proposed procedure with the patient. Information consent for procedure given to the patient. Discussed technical aspects, risks, benefits and alternatives in full. Addressed all of the patient's questions and concerns regarding the procedure. The patient demonstrated knowledge and understanding. They wish to proceed with this procedure. Preparation The patient was prepped in the usual manner. A director of technology was present and in the room. Genitalia was prepped with betadine solution in a sterile manner. Lidocaine Jelly 2% was placed into the urethra and 16Fr flexible Olympus cystoscope was inserted into the meatus after adequate lubrication. Procedure Meatus circumcised Urethra anterior posterior urethra normal Prostatic Urethra TURP defect Bladder examination with retroflexion of cystoscope Bladder Orifices normal shape and position Bladder Capacity medium Trabeculations 0- Cellule Formation - Diverticulum Formation - Mucosal Erythema - Bladder Tumor - [id number] DISPOSABLE SCOPE URO-G FLEXIBLE SCOPE Procedure code (CPT) selection complete Office Meds lidocaine HCl Performing Provider: Carlos Stark MD Administered by: Bibiana Torres RN on 11/27/22 08:56 Dose Route Admin Location Lot Number Expiration Date [employer] 10 mL intra-urethral nitrofurantoin monohyd/m-cryst 100 mg Performing Provider: Carlos Stark MD Administered by: Bibiana Torres RN on 11/27/22 08:56 Dose Route Admin Location Lot Number Expiration Date [employer] 100 mg PO naproxen Performing Provider: Carlos Stark MD Administered by: Bibiana Torres RN on 11/27/22 08:56 Dose Route Admin Location Lot Number Expiration Date [employer] 500 mg PO Results AMB Urinalysis, Automated UA Leukoctes 0 Luis Miguel/uL Last Edit by BALJEET Julian on 11/27/22 08:52 UA Nitrite Negative Last Edit by Jayna Lowe [facility] on 11/27/22 08:52 UA Urobilinogen 0.2 mg/dL Last Edit by Jayna Lowe Milagros on 11/27/22 08:5 2 UA Protein 15 mg/dL Last Edit by Jayna Lowe [facility] on 11/27/22 08:52 UA pH 6.0 Last Edit by Jayna Lowe [facility] on 11/27/22 08:52 UA Blood 0 Thom/uL Last Edit by Jayna Lowe [facility] on 11/27/22 08:52 UA Specific [place] 1.020 Last Edit by BALJEET Julian on 11/27/22 08: 52 UA Ketone Negative Last Edit by BALJEET Julian on 11/27/22 08:52 UA Bilirubin 0 mg/dL Last Edit by Jayna Lowe [facility] on 11/27/22 08:52 UA Glucose 15 mg/dL Last Edit by Jayna Lowe [facility] on 11/27/22 08:52 Results Reviewed Results Reviewed: Laboratory Last Values Urine pH (Auto) 6.0 11/27/22 08:51 Specific [place] (Auto) 1.020 11/27/22 08:51 Urine Protein (Auto) 15 mg/dL 11/27/22 08:51 Glucose (UA)(Auto) 15 mg/dL 11/27/22 08:51 Urine Ketones (Auto) Negative 11/27/22 08:51 Urine Blood (Auto) 0 Thom/uL 11/27/22 08:51 Urine Nitrite (Auto) Negative 11/27/22 08:51 Urine Bilirubin (Auto) 0 mg/dL 11/27/22 08:51 Urine Urobilinogen (Auto) 0.2 mg/dL 11/27/22 08:51 Leukocyte Esterase (Auto) 0 Luis Miguel/uL 11/27/22 08:51 Assessment & Plan Assessment & Plan (1) BPH loc w urin obs/LUTS: Code(s): N40.1 - Benign prostatic hyperplasia with lower urinary tract symptoms (2) Urinary bladder cancer: Comment: November 2017 Dr. Stark Code(s): C67.9 - Malignant neoplasm of bladder, unspecified Plan Twelve month follow-up cysto Orders: Orders Urine Cytology Today C67.9 - Malignant neoplasm of bladder, unspecified AMB Cystoscopy Today C67.9 - Malignant neoplasm of bladder, unspecified AMB Urinalysis Automated Today Z13.9 - Encounter for screening, unspecified Patient Instructions: Imaging studies, laboratory and physical exam results were discussed and reviewed in detail. No major barriers to patient understanding were identified. An opportunity to ask questions regarding the treatment plan was provided. All questions were answered. The patient expressed understanding and agreement with the above treatment plan. The patient is aware they should contact our office by phone for worsening of their current condition or the appearance of new urologic symptoms. Compliance is encouraged with any medications and followup testing that is ordered. It is a privilege to participate in the urologic care of your patient. If you have any questions or concerns regarding treatment for the above conditions, or other urologic issues, please do not hesitate to contact me. The office telephone contact is [phone]. This note is constructed using voice recognition software. While every effort has been made to ensure accuracy manager universal errors may have been included. Yours sincerely, Dr Carlos Stark MD, [facility] Providers of Expert, Compassionate Care for the Genitourinary System Coding Level of Care Code Est Pt Level 4 (83249) Diagnoses BPH loc w urin obs/LUTS N40.1 Urinary bladder cancer C67.9 CPT Codes Cystoscopy - CPT: 12600-Shrmdfbcya ([id number]) Cystoscopy - CPT: DISPOSABLE SCOPE URO-G FLEXIBLE SCOPE ([id number])
== END 2022-11-27 09:21 | disposition home or self-care (01) ==
PROVIDERS: PCP Internal Medicine; Visit Provider Urology
DX: N40.1 Benign prostatic hyperplasia with lower urinary tract symptoms (principal); C67.8 Malignant neoplasm of overlapping sites of bladder; Z13.9 Encounter for screening, unspecified
CPT/HCPCS: 52000

== ENCOUNTER 2022-11-27 08:27 | Outpatient (REF) | payer OTHER, SELFPAY ==
[2022-11-27 18:08] LABS: Urine Cytology See Pathology rpt
== END 2022-11-27 08:28 | disposition home or self-care (01) ==
LOC: HO.LAB 08:27
PROVIDERS: Visit Provider Urology
DX: C67.9 Malignant neoplasm of bladder, unspecified (principal); N40.1 Benign prostatic hyperplasia with lower urinary tract symptoms
CPT/HCPCS: 52000; 81003; 88112; C1747

== ENCOUNTER 2022-12-23 07:57 | Day surgery (SDC) | payer OTHER, SELFPAY ==
--- NOTE | 2022-12-22 11:41 | HO.ANESPROP2 ---
HPI - Anesthesia Eval Consult details Narrative: 67yo M for Colonoscopy [facility] Active Problems Active Problems: All Active Problems (Updated 12/22/22 @ 11:05 by Lena Stern, RN) Renal insufficiency (Acute) Bile salt-induced diarrhea (Acute) Chest pain (Acute) Abdominal pain (Acute) BPH loc w urin obs/LUTS (Acute) Bloating (Acute) Diabetic nephropathy (Acute) Annual physical exam (Acute) Seborrheic dermatitis (Acute) Colon cancer screening (Acute) Chronic diarrhea (Acute) Overweight (BMI 25.0-29.9) (Acute) Hypertension (Acute) Urinary bladder cancer (Acute) Obesity (BMI 30-39.9) (Acute) Hypercholesterolemia (Acute) GERD (gastroesophageal reflux disease) (Acute) Lumbar spondylosis (Acute) Type 2 diabetes mellitus with hyperglycemia (Acute) Past Medical History Medical History (Updated 12/22/22 @ 11:05 by Lena Stern, RN) Prostate CA Chronic diarrhea Overweight (BMI 25.0-29.9) Diabetic neuropathy Hypertension Urinary bladder cancer Obesity (BMI 30-39.9) Hypercholesterolemia GERD (gastroesophageal reflux disease) Lumbar spondylosis Type 2 diabetes mellitus with hyperglycemia Family History Family History Father Diabetes Myocardial infarct Mother No problems noted. Maternal Grandmother Stomach cancer Maternal Uncle Cancer Surgical History Surgical History (Updated 12/22/22 @ 11:06 by Lena Stern RN) Hx of hernia repair History of prostate surgery History of colonoscopy History of cholecystectomy History of appendectomy Social History Social History Housing: Apartment Alcohol intake: never Patient Tobacco Use Status: Never used Tobacco e-Cigarette/Vaping Use: Never Used Second Hand Smoke Exposure: No service: No Current occupational status: disabled Cognitive needs: No Hearing needs: No Vision needs: Yes Meds Allergies Allergy/AdvReac Type Severity Reaction Status Date / Time ciprofloxacin [CIPROFLOXACIN] Allergy Unknown RASH, Verified 10/31/22 15:08 anaphylaxis empagliflozin Allergy Unknown UTI Verified 10/31/22 15:08 [From Jardiance] pioglitazone Allergy Unknown Swelling Verified 10/31/22 15:08 tamsulosin Allergy Unknown rash? Verified 10/31/22 15:08 Home Medications Medication Instructions Recorded Confirmed Last Taken Type dulaglutide 3 mg/0.5 mL 3 mg subcut QWEEK 12/22/22 Unknown History subcutaneous pen injector (Trulicity) Exam Exam Date and Time: December 22, 2022 1141 Assessment and Plan Assessment Anesthesia Assessment: Chart Reviewed
--- NOTE | 2022-12-23 10:04 | P.CONAN_ITS ---
ON LICENSE OF [facility] Active Problems Active Problems: All Active Problems (Updated 12/22/22 @ 11:05 by Lena Stern RN) Renal insufficiency (Acute) Bile salt-induced diarrhea (Acute) Chest pain (Acute) Abdominal pain (Acute) BPH loc w urin obs/LUTS (Acute) Bloating (Acute) Diabetic nephropathy (Acute) Annual physical exam (Acute) Seborrheic dermatitis (Acute) Colon cancer screening (Acute) Chronic diarrhea (Acute) Overweight (BMI 25.0-29.9) (Acute) Hypertension (Acute) Urinary bladder cancer (Acute) Obesity (BMI 30-39.9) (Acute) Hypercholesterolemia (Acute) GERD (gastroesophageal reflux disease) (Acute) Lumbar spondylosis (Acute) Type 2 diabetes mellitus with hyperglycemia (Acute) Past Medical History Medical History Prostate CA Chronic diarrhea Overweight (BMI 25.0-29.9) Diabetic neuropathy Hypertension Urinary bladder cancer Obesity (BMI 30-39.9) Hypercholesterolemia GERD (gastroesophageal reflux disease) Lumbar spondylosis Type 2 diabetes mellitus with hyperglycemia Family History Family History Father Diabetes Myocardial infarct Mother No problems noted. Maternal Grandmother Stomach cancer Maternal Uncle Cancer Family history of problems with anesthesia: No Surgical History Surgical History Hx of hernia repair History of prostate surgery History of colonoscopy History of cholecystectomy History of appendectomy History of Problems with Anesthesia: No Social History Social History Housing: Apartment Alcohol intake: never Patient Tobacco Use Status: Never used Tobacco e-Cigarette/Vaping Use: Never Used Second Hand Smoke Exposure: No service: No Current occupational status: disabled Cognitive needs: No Hearing needs: No Vision needs: Yes Meds Allergies Allergy/AdvReac Type Severity Reaction Status Date / Time ciprofloxacin [CIPROFLOXACIN] Allergy Unknown RASH, Verified 10/31/22 15:08 anaphylaxis empagliflozin Allergy Unknown UTI Verified 10/31/22 15:08 [From Jardiance] pioglitazone Allergy Unknown Swelling Verified 10/31/22 15:08 tamsulosin Allergy Unknown rash? Verified 10/31/22 15:08 Active Medications: Current Medications Lactated Ringer's (Lr) 1,000 mls @ 100 mls/hr IVCONT .Q10H [facility] Home Medications Medication Instructions Recorded Confirmed Last Taken Type dulaglutide 3 mg/0.5 mL 3 mg subcut QWEEK 12/22/22 12/23/22 Unknown History subcutaneous pen injector (Trulicity) Exam Exam Date and Time: December 23, 2022 1004 Airway Mallampati Class: III TM Dist: >3cm Neck ROM: Full Heart: RRR Lungs: CTA Assessment and Plan Assessment Anesthesia Assessment: Anesthesia Plan Discussed Final Anesthetic Review Family History of Problems with Anesthesia: No History of Problems with Anesthesia: No NPO: Yes ASA Class: III Final Preanesthetic Review: Meds/Allgs Chart Reviewed, Consent Obtained/Reviewed and Anes Risks/Benef Reviewed Patient Risk: Low Procedure Risk: Low Anesthetic Plan Anesthetic Plan: MAC: Disposition: Standard PACU
[2022-12-23 10:20] VITALS: BP 148/57; PULSE 71; RESP 18; TEMP 36.2; O2SAT 99
[2022-12-23 10:34] LABS: Glucose, Whole Blood 153 mg/dL (60-115)
[2022-12-23] MEDS: Lactated Ringers 1,000 ML 100 ML IVCONT (10:37)
--- NOTE | 2022-12-23 10:37 | MHC.SHP ---
Pre-Procedural Eval Section A Date of Service: 12/23/22 Section B Chief Complaint: Other specified symptoms and signs involving the d Details of Present Illness: see H&P no changes Relevant Family History (Specify if Yes): No Relevant Social History: None Present Medications: see Short Stay Collaborative assessment Medical History: No relevant PMH Allergies: Allergies Allergy/AdvReac Type Severity Reaction Status Date / Time ciprofloxacin [CIPROFLOXACIN] Allergy Unknown RASH, Verified 10/31/22 15:08 anaphylaxis empagliflozin Allergy Unknown UTI Verified 10/31/22 15:08 [From Jardiance] pioglitazone Allergy Unknown Swelling Verified 10/31/22 15:08 tamsulosin Allergy Unknown rash? Verified 10/31/22 15:08 Review of Systems Sugical H&P ROS: Negative: Constitution, Cardiovascular, Respiratory, Neurological, Psychiatric, Hem-Onc, Allergic/Immunologic, Gastrointestinal, Genitourinary, Musculoskeletal, Integumentary, Endocrine and Eyes/Ears/Nose/Throat Exam Surgical H&P Exam: Normal: HEENT, Normal: Heart, Normal: Lungs, Normal: Extremities, Normal: Abdomen, Normal: Skin and Normal: Neurological Plan Diagnosis/Plan: Unchanged I have reviewed the history and physical and performed a pertinent physical examination on my patient. No changes have occurred unless specified. Time Spent With Patient Time: Total time managing care of this patient today ____ minutes.
[2022-12-23 11:11] VITALS: BP 93/50; PULSE 65; RESP 16; TEMP 36.1; O2SAT 98
--- NOTE | 2022-12-23 11:11 | PM.OP ---
Brief Operative Note Date of Service: 12/23/22 Pre-op diagnosis: change in bowels diarrhea Post-op diagnosis: same Procedure: colonoscopy Surgeon: Diego Almeida Anesthesia: MAC Was an Personal Protection Specialist used for this Procedure?: No Estimated blood loss (mL): 2 Pathology: other Condition: stable Disposition: PACU
[2022-12-23 11:26] VITALS: BP 125/63; PULSE 64; RESP 16; TEMP 36.1; O2SAT 97
--- NOTE | 2022-12-23 11:33 | HO.POSTANES ---
Post Anesthesia Evaluation Post Anesthesia Evaluation Date of Service: 12/23/22 Vital Signs: Vital Signs Temp Pulse Resp BP Pulse Ox O2 Del Method 12/23/22 11:26 97 F 64 16 125/63 97 Room Air 12/23/22 11:11 97 F 65 16 93/50 L 98 Room Air 12/23/22 10:20 97.1 F 71 18 148/57 H 99 Room Air Anesthesia: Monitored Mental Status: Awake Pain Control: Satisfactory Nausea/Vomiting: None Hydration: Adequate Anesthesia-Related Issues: No Anes. Related Issues
--- NOTE | 2022-12-23 11:43 | OP_ITS ---
DATE OF SERVICE: 12/23/2022 SURGEON: Diego Almeida MD INDICATIONS: Change in bowel habits and diarrhea. PREOPERATIVE DIAGNOSIS: POSTOPERATIVE DIAGNOSIS: PROCEDURE PERFORMED: Colonoscopy to the terminal ileum with biopsy. ESTIMATED BLOOD LOSS: COMPLICATIONS: ANESTHESIA: Monitored anesthesia care. ASSISTANTS: SPECIMENS: DESCRIPTION OF PROCEDURE: A history and physical performed. The risks and benefits of the procedure were explained to the patient. Informed consent was obtained. The patient was placed in a left lateral decubitus position. A digital rectal exam was performed and was found to be normal. The Olympus pediatric video colonoscope was introduced into the rectum and advanced to the cecum. The cecum was identified by transillumination, palpation, and identification of ileocecal valve. Examination was performed. The scope was removed. He tolerated the procedure well and was taken to recovery room in stable condition. FINDINGS: The terminal ileum was examined and appeared normal. This was biopsied. The visualized colonic mucosa was normal. The quality of the prep was good. No polyps were identified. No diverticulitis was seen. There was no evidence of colitis. Mucosal biopsies were obtained from the sigmoid. Retroflexed examination was normal. IMPRESSION: Normal colonoscopy. RECOMMENDATION: 1. Follow up the biopsy results. 2. Repeat colonoscopy is recommended in 10 years for average risk individuals. MD MARLON Bailey/HILARIO / [id number]
== END 2022-12-23 12:10 | disposition home or self-care (01) ==
PROVIDERS: PCP Internal Medicine; Visit Provider Internal Medicine Gastroenterology
PROC: 0DJD8ZZ Inspection of Lower Intestinal Tract, Via Natural or Artificial Opening Endoscopic (ICD-10-PCS; CPT 45378; principal; 2022-12-23 10:30)
DX: Z12.11 Encounter for screening for malignant neoplasm of colon (principal); R19.7 Diarrhea, unspecified; R19.8 Other specified symptoms and signs involving the digestive system and abdomen; E11.9 Type 2 diabetes mellitus without complications; I10 Essential (primary) hypertension; E78.5 Hyperlipidemia, unspecified; K21.9 Gastro-esophageal reflux disease without esophagitis; E66.9 Obesity, unspecified; Z68.30 Body mass index [BMI] 30.0-30.9, adult; Z71.3 Dietary counseling and surveillance; Z90.49 Acquired absence of other specified parts of digestive tract; Z85.46 Personal history of malignant neoplasm of prostate; Z79.899 Other long term (current) drug therapy; Z79.85 Long-term (current) use of injectable non-insulin antidiabetic drugs
CPT/HCPCS: 45380; 82947; 88305

== ENCOUNTER 2023-02-12 08:04 | Outpatient (AMB) | payer OTHER, SELFPAY ==
[2023-02-12 08:12] VITALS: BP 130/68; PULSE 72; O2SAT 98; BMI 29.5
--- NOTE | 2023-02-12 08:12 | A.OFFPC_ITS ---
Vital Signs 02/12/23 08:12 Height 5 ft 9 in Weight 200 lb BMI 29.5 BP 130/68 Blood Pressure Location Lt brachial Position Sitting Pulse 72 Pulse Source Pulse Oximeter Pulse Oximetry (%) 98 Oxygen Delivery Method Room Air Intake Visit Reasons: DM , renal insufficiency Allergies ciprofloxacin [CIPROFLOXACIN] Allergy (Unknown, Verified 02/12/23 08:13) RASH, anaphylaxis empagliflozin [From Jardiance] Allergy (Unknown, Verified 02/12/23 08:13) UTI pioglitazone Allergy (Unknown, Verified 02/12/23 08:13) Swelling tamsulosin Allergy (Unknown, Verified 02/12/23 08:13) rash? Medication List - Last Reconciled 02/12/23 by Concepción Oh MD amlodipine 2.5 mg PO DAILY 30 days atorvastatin 20 mg PO QPM cholestyramine-aspartame 4 gram (Prevalite) 4 grams PO BID cyanocobalamin (vitamin B-12) 1,000 mcg sublingual DAILY dulaglutide (Trulicity) 3 mg subcut QWEEK enalapril maleate 20 mg PO BID 90 days fexofenadine (Hansa Allergy) 180 mg PO DAILY 90 days glipizide ER 2.5 mg PO DAILY hydroxyzine HCl 25 mg PO TID PRN ketoconazole 2% 1 appl topical 2XW loperamide 2 mg PO Q6H PRN metoprolol succinate ER 100 mg PO DAILY omeprazole 20 mg PO DAILY pen needle, diabetic (BD Ultra-Fine Mini Pen Needle) As directed simethicone (Gas Relief (simethicone)) 80 mg PO TID-QID PRN Tobacco use date assessed: 07/30/22 Fall risk assessment: No Falls in past year Last assessed Fall Risk: 02/12/23 Dental Screening Dental Screen Date: 02/12/23 Did you have a dental visit in the last 12 months?: Yes Did you have a dental problem in the last 6 months where you did not have access to dental care?: No Was dental information given to patient?: Patient has dentist HPI DM , renal insufficiency HPI Details 68-year-old overweight male with diabete s mellitus hypercholesterolemia GERD urinary bladder cancer November 2017(had TURBT) hypertension renal insuffici ency last seen in October 2022. Patient's colonoscopy is up-to-date. December 2019 normal colonoscopy. Patient follows up with urology with yearly cystoscope last complete blood work was done in May cholesterol done at that time. Patient did have a follow-up showing renal insufficiency and this needs to be followed up [facility] Medical History Prostate CA Chronic diarrhea Overweight (BMI 25.0-29.9) Diabetic neuropathy Hypertension Urinary bladder cancer Obesity (BMI 30-39.9) Hypercholesterolemia GERD (gastroesophageal reflux disease) Lumbar spondylosis Type 2 diabetes mellitus with hyperglycemia Surgical History Hx of hernia repair History of prostate surgery History of colonoscopy History of cholecystectomy History of appendectomy Family History Father Diabetes Myocardial infarct Mother No problems noted. Maternal Grandmother Stomach cancer Maternal Uncle Cancer Social History Housing: Apartment Alcohol intake: never Patient Tobacco Use Status: Never used Tobacco e-Cigarette/Vaping Use: Never Used Second Hand Smoke Exposure: No service: No Current occupational status: disabled Cognitive needs: No Hearing needs: No Vision needs: Yes Questionnaire PHQ-9 Over the last 2 weeks, how often have you been bothered by any of the following problems? 1. Little interest or pleasure in doing things: not at all 2. Feeling down, depressed, or hopeless: not at all 3. Trouble falling or staying asleep, or sleeping too much: not at all 4. Feeling tired or having little energy: not at all 5. Poor appetite or overeating: not at all 6. Feeling bad about yourself - or that you are a failure or have let yourself or your family down: not at all 7. Trouble concentrating on things, such as reading the newspaper or watching television: not at all 8. Moving or speaking so slowly that other people could have noticed. Or the opposite - being so fidgety or restless that you have been moving around a lot more than usual: not at all 9. Thoughts that you would be better off or of hurting yourself in some way: not at all Total score: 0 Depression Screening Interpretation: Negative Depression Screening Done: Yes Source: Developed by Drs. Yosi Melchor, Radha Laura, Shivam Mcnally and colleagues, with an educational jamar from [employer]. Thrive Questionnaire Date Thrive assessed: 04/23/22 AUDIT C Alcohol Use Questionnaire (AUDIT-C) 1. How often do you have a drink containing alcohol?: Never 3. How often do you have six or more drinks on one occasion?: Never Total Score: 0 Score Reviewed/Action Taken: No MADELINE-7 AMB Questionnaire MADELINE-7 Date MADELINE - 7 assessed: 04/23/22 Source: Developed by Drs. Yosi Melchor, Shivam Rolle and colleagues, with an educational jamar from [employer]. Physical exam (Primary Care) Vital Signs: Last Vital Signs Pulse 72 02/12/23 08:12 BP 130/68 02/12/23 08:12 Pulse Ox 98 02/12/23 08:12 Oxygen Delivery Method Room Air 02/12/23 08:12 BMI result Body Mass Index 29.5 Tobacco/Smoking Status: Tobacco use Status Tobacco use date assessed 07/30/22 02/12/23 08:16 Patient Tobacco Use Status Never used Tobacco 02/12/23 08:16 e-Cigarette/Vaping Use Never Used 02/12/23 08:16 PHQ-9: PHQ-9 Score PHQ-9: Total score 0 02/12/23 08:26 Depression Screening Interpretation: Negative Thrive Assessment: Date of Thrive Assessment Date Thrive assessed 04/23/22 02/12/23 08:16 Const General: alert; No acute distress Eyes Conjunctivae: conjunctivae normal Resp Auscultation: clear to auscultation bilaterally Cardio Rate: regular rate Rhythm: regular rhythm GI Inspection: Yes normal to inspection Extrem General: Yes normal to inspection and No edema Results AMB Hemoglobin A1c AMB Hemoglobin A1c 6.8 % Last Edit by Elin Gutierrez CMA on 02/12/23 08 :27 Results Reviewed Results Reviewed: Laboratory Last Values Hgb A1c (Clinic) 6.8 % (4.0-6.0) H 02/12/23 08:26 Assessment and Plan Assessment & Plan (1) Type 2 diabetes mellitus with hyperglycemia: Code(s): E11.65 - Type 2 diabetes mellitus with hyperglycemia Qualifiers: Diabetes mellitus intermediate teacher insulin use: without [place] [facility] use Qualified Code(s): E11.65 - Type 2 diabetes mellitus with hyperglycemia Plan: Decrease the amount of carbohydrate intake, pasta, bread, rice and potatoes are all sugar and that is aside from all the sweet stuff, remember that fruits are good but they are Sweet also. Hemoglobin A1c goal of less than 7.0 patient on Trulicity glipizide (2) Hypercholesterolemia: Code(s): E78.00 - Pure hypercholesterolemia, unspecified Plan: Avoid fried foods, chicken skin, eggs, butter margarine, pastries and meat. Be it pork or beef they have a lot of cholesterol May 2022 last blood work patient on atorvastatin 20 mg once a day (3) GERD (gastroesophageal reflux disease): Code(s): K21.9 - Gastro-esophageal reflux disease without esophagitis Qualifiers: Esophagitis presence: without esophagitis Qualified Code(s): K21.9 - Gastro-esophageal reflux disease without esophagitis Plan: Avoid the foods that causes that usually spicy foods, tomato products, juices, coffee, soda and foods that your sensitive to. After eating do not lie down, allow 3-4 hours before in lie down. And keep the head of bed above 30 degrees to avoid the acid from going up. (4) Urinary bladder cancer: Comment: November 2017 Dr. Stark Code(s): C67.9 - Malignant neoplasm of bladder, unspecified Plan: Patient continues to follow-up with Urology recently just had yearly cystoscopy (5) Overweight (BMI 25.0-29.9): Code(s): E66.3 - Overweight Plan: Diet and exercise (6) Renal insufficiency: Code(s): N28.9 - Disorder of kidney and ureter, unspecified Plan: With the June blood work this needs to be followed up (7) Diarrhea: Code(s): R19.7 - Diarrhea, unspecified Plan: this is chronic already and had the colon test - negative- advised to use the PREVALITE and hold TRULICITY AND omeprazole even for just 2 weeks to find out the cause (8) Insomnia: Code(s): G47.00 - Insomnia, unspecified Orders: Orders AMB Hemoglobin A1c Today Z13.9 - Encounter for screening, unspecified Medications: New trazodone 50 mg PO BEDTIME PRN 30 tabs 0RF sleep G47.00 - Insomnia, unspecified Discontinued hydroxyzine HCl Discontinued Reason: Doctor's Order 25 mg PO TID PRN 60 tabs 3RF itching K90.89 - Other intestinal malabsorption bisacodyl (Dulcolax (bisacodyl)) Take 2 tablets by mouth at 12:00pm the day before your procedure. Discontinued Reason: Change Referral Type 10 mg (2 x 5 mg) PO ONCE 1 day 2 tabs 0RF colonoscopy prep Z12.11 - Encounter for screening for malignant neoplasm of colon Coding Level of Care Code Est Pt Level 4 (12852) Diagnoses Type 2 diabetes mellitus with hyperglycemia, without long-term current use of insulin E11.65 Diabetes mellitus intermediate teacher insulin use: without [place] [facility] use Hypercholesterolemia E78.00 Gastroesophageal reflux disease without esophagitis K21.9 Esophagitis presence: without esophagitis Urinary bladder cancer C67.9 Overweight (BMI 25.0-29.9) E66.3 Renal insufficiency N28.9 Diarrhea R19.7 Insomnia G47.00 Additional Codes PHQ-9 - 05735 - PHQ-9 Billing: ([id number])
== END 2023-02-12 09:05 | disposition home or self-care (01) ==
PROVIDERS: PCP Internal Medicine; Visit Provider Internal Medicine
DX: E11.65 Type 2 diabetes mellitus with hyperglycemia (principal); E78.00 Pure hypercholesterolemia, unspecified; K21.9 Gastro-esophageal reflux disease without esophagitis; C67.9 Malignant neoplasm of bladder, unspecified; E66.3 Overweight; N28.9 Disorder of kidney and ureter, unspecified; R19.7 Diarrhea, unspecified; G47.00 Insomnia, unspecified; Z13.9 Encounter for screening, unspecified
CPT/HCPCS: 83036; 99214

== ENCOUNTER 2023-02-12 09:17 | Outpatient (REF) | payer OTHER, SELFPAY ==
--- NOTE | ~2023-02-12 | XR_ITS ---
EXAMINATION: XR CHEST CLINICAL INFORMATION: Chest pain, unspecified COMPARISON: Chest 07/07/2022 TECHNIQUE: 2 views of the chest were obtained. FINDINGS: No significant abnormality is noted involving the heart, lungs, mediastinum or soft tissues. Anterior bridging osteophytes are seen throughout the mid and lower thoracic spine. XR/XR chest 2V IMPRESSION: No acute cardiopulmonary disease.
[2023-02-12 09:32] LABS: MANUAL DIFF FLAG NO
[2023-02-12 09:54] LABS: Basophils Percent Auto 0.4 % (0-2); Eosinophils Absolute Auto 0.1 X10*3/uL (0.0-0.4); Eosinophils Percent Auto 0.9 % (0-4); Hematocrit 38.9 % (42.0-52.0); Hemoglobin 12.7 g/dl (14.0-18.0); Imm Gran Abs Auto 0.02 X10*3/uL (0.00-0.03); Imm Gran Pct Auto 0.3 % (0.0-0.4); Immature Retic Fraction 12.2 % (2.3-13.4); Lymphocytes Absolute Auto 1.8 X10*3/uL (1.2-4.9); Lymphocytes Percent Auto 23.8 % (20-40); Mean Corpuscular HGB Conc 32.6 g/dl (31.0-36.0); Mean Corpuscular Volume 88.8 fL (80.0-98.0); Mean Platelet Volume 13.1 fL (9.4-12.4); Monocytes Absolute Auto 0.7 X10*3/uL (0.1-1.2); Monocytes Percent Auto 9.7 % (2-11); Neutrophils Absolute Auto 4.8 x10*3/uL (2.0-8.3); Neutrophils Percent Auto 64.9 % (45-73); Platelet Count 158 X10*3/uL (160-400); Red Blood Count 4.38 X10*6/uL (4.60-5.80); Red Cell Distribution Width 12.9 % (11.0-16.0); Retic HGB Equivalent 33.5 pg (30.0-35.0); Reticulocyte Percent 1.2 % (0.5-1.8); Reticulocytes Absolute 0.054 X10*6/uL (0.026-0.095); White Blood Count 7.5 X10*3/uL (4.8-10.8)
[2023-02-12 10:18] LABS: Alanine Aminotransferase 19 U/L (0-40); Albumin Level 4.5 g/dL (3.5-5.0); Alkaline Phosphatase 107 U/L (39-117); Anion Gap 11 (12-20); Aspartate Amino Transferase 16 U/L (5-37); Bilirubin Total 0.7 mg/dL (0.0-1.0); Blood Urea Nitrogen 29 mg/dL (9-16); Calcium 9.6 mg/dL (8.4-10.2); Carbon Dioxide 23 mmol/L (22-29); Chloride 111 mmol/L (96-108); Estimated Glomerular Filt Rate 38; Glucose Random 167 mg/dL (60-115); Iron 56 mcg/dL (45-160); Percent Iron Saturation 22 % (15-50); Potassium 4.5 mmol/L (3.3-5.1); Sodium 140 mmol/L (135-145); Total Iron Binding Capacity 252 mcg/dL (228-428); Total Protein 7.3 g/dL (6.5-8.0); Unsaturated Iron Binding 196 ug/dL
[2023-02-12 10:34] LABS: Ferritin 32 ng/mL (20-250)
[2023-02-12 10:40] LABS: Folate 6.9 ng/mL (> or = 4.0); Vitamin B12 1139 pg/mL (200-900)
[2023-02-12 11:28] LABS: Creatinine Urine 180.48 mg/dL
== END 2023-02-12 09:18 | disposition home or self-care (01) ==
LOC: HO.XRAY 09:17
PROVIDERS: PCP Internal Medicine; Visit Provider Internal Medicine
DX: E11.65 Type 2 diabetes mellitus with hyperglycemia (principal); N28.9 Disorder of kidney and ureter, unspecified; R07.9 Chest pain, unspecified
CPT/HCPCS: 36415; 71046; 80053; 82570; 82607; 82728; 82746; 83540; 85025; 85045

== ENCOUNTER 2023-03-13 09:51 | Outpatient (AMB) | payer OTHER, SELFPAY ==
[2023-03-13 09:54] VITALS: BP 150/80; PULSE 70; BMI 29.9
--- NOTE | 2023-03-13 09:54 | HO.NEPHOV_ITS ---
HPI HPI Comments History of Present Illness Details I had the privilege of seeing Mr. Brewster in consultation for his chronic kidney disease. He is a diabetic. His last hemoglobin A1c was under 7. He is hypertensive and has been on medications. He has chronic diarrhea which is being investigated. He has history of prostate cancer. He was thought to have diabetic nephropathy. He is overweight. He denies any coronary artery disease, congestive heart failure, carotid stenosis, CVA, CHF, PUD or SHYLA. He denies taking excessive nonsteroidal anti-inflammatory medications. He does not check his blood pressure at home. He denies chest pain, shortness of breath, proximal nocturnal dyspnea, orthopnea, pedal edema or orthostatic symptoms. His last serum creatinine was 1.8 . [facility] Medical History Prostate CA Chronic diarrhea Overweight (BMI 25.0-29.9) Diabetic neuropathy Hypertension Urinary bladder cancer Obesity (BMI 30-39.9) Hypercholesterolemia GERD (gastroesophageal reflux disease) Lumbar spondylosis Type 2 diabetes mellitus with hyperglycemia Surgical History Hx of hernia repair History of prostate surgery History of colonoscopy History of cholecystectomy History of appendectomy Family History Father Diabetes Myocardial infarct Mother No problems noted. Maternal Grandmother Stomach cancer Maternal Uncle Cancer Social History Housing: Apartment Alcohol intake: never Patient Tobacco Use Status: Never used Tobacco e-Cigarette/Vaping Use: Never Used Second Hand Smoke Exposure: No service: No Current occupational status: disabled Cognitive needs: No Hearing needs: No Vision needs: Yes Vital Signs 03/13/23 09:54 Height 5 ft 9 in Weight 202 lb 4 oz BMI 29.9 BP 150/80 H Blood Pressure Location Lt brachial Position Sitting Pulse 70 Pulse Source Pulse Oximeter Physical Exam Vital Signs: Last Vital Signs Pulse 70 03/13/23 09:54 BP 150/80 H 03/13/23 09:54 BMI result Body Mass Index 29.9 Const General: comfortable and no acute distress Orientation/consciousness: patient oriented x3 HEENT Head: Yes normocephalic Mouth: Normal oral and palatal mucosa present Eyes EOM: EOMs intact bilaterally Neck Neck: Yes supple Resp Auscultation: clear to auscultation bilaterally Cardio Jugular venous distension: no JVD Rate: regular rate Heart sounds: Murmur heart sound present GI Palpation (GI): Soft to palpation Auscultation: normal bowel sounds General: Yes no CVA tenderness Back/Spine/Pelvis Back: no CVA tenderness Skin General skin exam: no rashes or lesions noted Neuro General: patient oriented x3 and moves all extremities Extrem General: Yes no pedal edema Assessment & Plan Assessment & Plan (1) CKD (chronic kidney disease) stage 3, GFR 30-59 ml/min: Code(s): N18.30 - Chronic kidney disease, stage 3 unspecified Qualifiers: Chronic kidney disease stage 3 subtype: stage 3a (GFR 45-59) Qualified Code(s): N18.31 - Chronic kidney disease, stage 3a (2) Hypertension: Code(s): I10 - Essential (primary) hypertension Qualifiers: Hypertension type: essential hypertension Qualified Code(s): I10 - Essential (primary) hypertension Plan Mr. 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 Etiology of his diarrhea needs to be delineated as it can put him at risk for further tubular injury. He needs to lose weight. He is not on any KRISH inhibitor or ARB. His urine output is good. He has had prostate cancer and is followed up by Dr. Stark. He is a great candidate for [employer]. I have ordered further workup. He may need renal biopsy. He should avoid nonsteroidal anti-inflammatory medications, maintain good hydration and cut back salt in the diet. I did not make any medication changes at this visit. All his and his 's questions were answered. Follow-up given Orders: Orders Blood Urea Nitrogen 03/13/23 N18.30 - Chronic kidney disease, stage 3 unspecified Creatinine 03/13/23 N18.30 - Chronic kidney disease, stage 3 unspecified Complete Blood Count Auto Diff 03/13/23 N18.30 - Chronic kidney disease, stage 3 unspecified THANH Reflex Titer and Pattern 03/13/23 N18.30 - Chronic kidney disease, stage 3 unspecified Anti DNA DS Antibody 03/13/23 N18.30 - Chronic kidney disease, stage 3 unspecified Electrolytes 03/13/23 N18.30 - Chronic kidney disease, stage 3 unspecified Calcium 03/13/23 N18.30 - Chronic kidney disease, stage 3 unspecified Prothrombin Time INR 03/13/23 N18.30 - Chronic kidney disease, stage 3 un specified Phosphorus 03/13/23 N18.30 - Chronic kidney disease, stage 3 unspecified Vitamin D 25-OH Total 03/13/23 N18.30 - Chronic kidney disease, stage 3 unspecified Parathyroid Hormone Intact 03/13/23 N18.30 - Chronic kidney disease, stage 3 unspecified Immunofixation Pnl, Serum 03/13/23 N18.30 - Chronic kidney disease, stage 3 unspecified ANCA Vasculitides 03/13/23 N18.30 - Chronic kidney disease, stage 3 unspecified US renal BI 03/13/23 N18.30 - Chronic kidney disease, stage 3 unspecified Medications: Changed From enalapril maleate 20 mg PO BID 90 days 180 tabs 2RF To enalapril maleate 20 mg PO DAILY 90 tabs 2RF 90 days Discontinued hydrochlorothiazide Discontinued Reason: Doctor's Order 12.5 mg PO DAILY 30 tabs 2RF I10 - Essential (primary) hypertension Coding Level of Care Code New Pt Level 4 (69742) Diagnoses Stage 3a chronic kidney disease N18.31 Chronic kidney disease stage 3 subtype: stage 3a (GFR 45-59) Essential hypertension I10 Hypertension type: essential hypertension Results Reviewed Nephrology Results: Hgb 12.7 g/dl (14.0-18.0) L 02/12/23 WBC 7.5 X10*3/uL (4.8-10.8) 02/12/23 Plt Count 158 X10*3/uL (160-400) L 02/12/23 Sodium 140 mmol/L (135-145) 02/12/23 Potassium 4.5 mmol/L (3.3-5.1) 02/12/23 Chloride 111 mmol/L (96-108) H 02/12/23 Carbon Dioxide 23 mmol/L (22-29) 02/12/23 BUN 29 mg/dL (9-16) H 02/12/23 Creatinine 1.81 mg/dL (0.5-1.4) H 02/12/23 Calcium 9.6 mg/dL (8.4-10.2) 02/12/23 Urine Protein 30 (1+) mg/dL (Neg-Trace) H 07/07/22
== END 2023-03-13 10:37 | disposition home or self-care (01) ==
LOC: HO.HKA 09:51
PROVIDERS: PCP Internal Medicine; Visit Provider Internal Medicine Nephrology
DX: N18.31 Chronic kidney disease, stage 3a (principal); I10 Essential (primary) hypertension
CPT/HCPCS: 99204

== ENCOUNTER → 2023-03-13 09:51 | Outpatient (BNVA) | payer OTHER, SELFPAY | PROVIDERS: PCP Internal Medicine; Visit Provider Internal Medicine Nephrology | DX: I12.9 Hypertensive chronic kidney disease with stage 1 through stage 4 chronic kidney disease, or unspecified chronic kidney disease (principal); N18.31 Chronic kidney disease, stage 3a | CPT/HCPCS: 99202 ==

== ENCOUNTER 2023-04-10 12:38 | Outpatient (REF) | payer OTHER, SELFPAY ==
[2023-04-10 12:53] LABS: MANUAL DIFF FLAG NO
[2023-04-10 14:02] LABS: Basophils Percent Auto 0.4 % (0-2); Eosinophils Absolute Auto 0.1 X10*3/uL (0.0-0.4); Eosinophils Percent Auto 0.7 % (0-4); Imm Gran Abs Auto 0.02 X10*3/uL (0.00-0.03); Imm Gran Pct Auto 0.3 % (0.0-0.4); Lymphocytes Absolute Auto 1.7 X10*3/uL (1.2-4.9); Lymphocytes Percent Auto 24.3 % (20-40); Mean Corpuscular HGB Conc 32.5 g/dl (31.0-36.0); Mean Corpuscular Hemoglobin 28.8 pg (27.0-33.0); Mean Corpuscular Volume 88.7 fL (80.0-98.0); Mean Platelet Volume 13.1 fL (9.4-12.4); Monocytes Absolute Auto 0.5 X10*3/uL (0.1-1.2); Neutrophils Absolute Auto 4.5 x10*3/uL (2.0-8.3); Neutrophils Percent Auto 66.3 % (45-73); Platelet Count 170 X10*3/uL (160-400); Red Blood Count 4.51 X10*6/uL (4.60-5.80); Red Cell Distribution Width 12.7 % (11.0-16.0); White Blood Count 6.8 X10*3/uL (4.8-10.8)
[2023-04-10 14:14] LABS: INTERNATIONAL NORM RATIO 0.9 (0.9-1.1); Prothrombin Time 11.1 SEC (11.1-13.3)
[2023-04-10 14:20] LABS: Parathyroid Hormone Intact 90.1 pg/mL (8.7-77.1)
[2023-04-10 14:30] LABS: Anion Gap 14 (12-20); Blood Urea Nitrogen 33 mg/dL (9-16); Calcium 9.8 mg/dL (8.4-10.2); Carbon Dioxide 27 mmol/L (22-29); Chloride 105 mmol/L (96-108); Estimated Glomerular Filt Rate 30; Phosphorus 3.4 mg/dL (2.7-4.5); Potassium 4.2 mmol/L (3.3-5.1); Sodium 142 mmol/L (135-145)
[2023-04-10 14:50] LABS: Vitamin D 25-OH Total 47.3 ng/mL (>30)
[2023-04-14 22:59] LABS: Anti DNA DS Antibody <1 IU/mL; Myeloperoxidase Antibody <1.0 AI; Proteinase 3 PR3 Antibodies <1.0 AI
[2023-04-15 11:23] LABS: IgA 109 mg/dL (70-320); IgG 944 mg/dL (600-1540); IgM 170 mg/dL (50-300)
[2023-04-17 13:28] LABS: Anti Nuclear Antibody Screen POSITIVE (NEGATIVE)
== END 2023-04-10 12:39 | disposition home or self-care (01) ==
LOC: HO.LAB 12:38
PROVIDERS: PCP Internal Medicine; Visit Provider Internal Medicine Nephrology
DX: N18.30 Chronic kidney disease, stage 3 unspecified (principal)
CPT/HCPCS: 36415; 80051; 82306; 82310; 82565; 82784; 83970; 84100; 84520; 85025; 85610; 86021; 86038; 86039; 86225; 86334

== ENCOUNTER 2023-04-15 08:24 | Outpatient (REF) | payer OTHER, SELFPAY | END 2023-04-15 08:25 | disposition home or self-care (01) | LOC: HO.US 08:24 | PROVIDERS: PCP Internal Medicine; Visit Provider Internal Medicine Nephrology | DX: N18.30 Chronic kidney disease, stage 3 unspecified (principal) | CPT/HCPCS: 76775 ==

== ENCOUNTER 2023-04-24 10:09 | Outpatient (AMB) | payer OTHER, SELFPAY ==
--- NOTE | 2023-04-24 10:37 | HO.NEPHOV_ITS ---
HPI HPI Comments History of Present Illness Details I had the privilege of seeing Mr. Brewster in follow up for his chronic kidney disease. He is a diabetic. His last hemoglobin A1c was under 7. He is hypertensive and has been on medications. He has chronic diarrhea which is being investigated, but better. He has history of prostate cancer. He was thought to have diabetic nephropathy. He has been overweight, but improving. He denies any coronary artery disease, congestive heart failure, carotid stenosis, CVA, CHF, PUD or SHYLA. He denies taking excessive nonsteroidal anti- inflammatory medications. He does not check his blood pressure at home. He den ies chest pain, shortness of breath, proximal nocturnal dyspnea, orthopnea, pedal edema or orthostatic symptoms. His last serum creatinine was over 2 PFSH Medical History Prostate CA Chronic diarrhea Overweight (BMI 25.0-29.9) Diabetic neuropathy Hypertension Urinary bladder cancer Obesity (BMI 30-39.9) Hypercholesterolemia GERD (gastroesophageal reflux disease) Lumbar spondylosis Type 2 diabetes mellitus with hyperglycemia Surgical History Hx of hernia repair History of prostate surgery History of colonoscopy History of cholecystectomy History of appendectomy Family History Father Diabetes Myocardial infarct Mother No problems noted. Maternal Grandmother Stomach cancer Maternal Uncle Cancer Social History Housing: Apartment Alcohol intake: never Patient Tobacco Use Status: Never used Tobacco e-Cigarette/Vaping Use: Never Used Second Hand Smoke Exposure: No service: No Current occupational status: disabled Cognitive needs: No Hearing needs: No Vision needs: Yes Vital Signs 04/24/23 10:38 Height 5 ft 9 in BP 150/70 H Blood Pressure Location Lt brachial Position Sitting Pulse 75 Pulse Source Pulse Oximeter Pulse Oximetry (%) 98 Oxygen Delivery Method Room Air Physical Exam Vital Signs: Last Vital Signs Pulse 75 04/24/23 10:38 BP 150/70 H 04/24/23 10:38 Pulse Ox 98 04/24/23 10:38 Oxygen Delivery Method Room Air 04/24/23 10:38 Const General: comfortable and no acute distress Orientation/consciousness: patient oriented x3 HEENT Head: Yes normocephalic Mouth: Normal oral and palatal mucosa present Eyes EOM: EOMs intact bilaterally Neck Neck: Yes supple Resp Auscultation: clear to auscultation bilaterally Cardio Jugular venous distension: no JVD Rate: regular rate GI Palpation (GI): Soft to palpation Auscultation: normal bowel sounds General: Yes no CVA tenderness Back/Spine/Pelvis Back: no CVA tenderness Skin General skin exam: no rashes or lesions noted Neuro General: patient oriented x3 and moves all extremities Extrem General: Yes no pedal edema Assessment & Plan Assessment & Plan (1) CKD (chronic kidney disease) stage 3, GFR 30-59 ml/min: Code(s): N18.30 - Chronic kidney disease, stage 3 unspecified Qualifiers: Chronic kidney disease stage 3 subtype: stage 3a (GFR 45-59) Qualified Code(s): N18.31 - Chronic kidney disease, stage 3a (2) Hypertension: Code(s): I10 - Essential (primary) hypertension Qualifiers: Hypertension type: essential hypertension Qualified Code(s): I10 - Essential (primary) hypertension Plan Mr. 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 Etiology of his diarrhea needs to be delineated as it can put him at risk for further tubular injury. He needs to lose weight. He is not on any KRISH inhibitor or ARB. His urine output is good. He has had prostate cancer and is followed up by Dr. Stark. I started him on Jardiance. I have ordered further workup including renal biopsy. If his blood sugar drops, I asked him to cut back on glipizide. He should avoid nonsteroidal anti-inflammatory medications, maintain good hydration and cut back salt in the diet. I did not make any other medication changes at this visit. All his and his 's questions were answered. Follow-up given Orders: Orders Complete Blood Count Auto Diff Today N18.30 - Chronic kidney disease, stage 3 unspecified Creatinine Today N18.30 - Chronic kidney disease, stage 3 unspecified Blood Urea Nitrogen Today N18.30 - Chronic kidney disease, stage 3 unspecified Prothrombin Time INR Today N18.30 - Chronic kidney disease, stage [address] biopsy renal LT Today N18.30 - Chronic kidney disease, stage 3 unspecified Immunofixation Pnl, Serum Today N18.30 - Chronic kidney disease, stage 3 unspecified Electrolytes Today N18.30 - Chronic kidney disease, stage 3 unspecified Medications: New empagliflozin (Jardiance) 5 mg (1/2 x 10 mg) PO DAILY 30 days 15 tabs 1RF Coding Level of Care Code Est Pt Level 4 (56149) Diagnoses Stage 3a chronic kidney disease N18.31 Chronic kidney disease stage 3 subtype: stage 3a (GFR 45-59) Essential hypertension I10 Hypertension type: essential hypertension Results Reviewed Nephrology Results: Hgb 12.5 g/dl (14.0-18.0) L 04/24/23 WBC 7.7 X10*3/uL (4.8-10.8) 04/24/23 Plt Count 174 X10*3/uL (160-400) 04/24/23 Sodium 143 mmol/L (135-145) 04/24/23 Potassium 4.7 mmol/L (3.3-5.1) 04/24/23 Chloride 109 mmol/L (96-108) H 04/24/23 Carbon Dioxide 27 mmol/L (22-29) 04/24/23 BUN 22 mg/dL (9-16) H 04/24/23 Creatinine 1.71 mg/dL (0.5-1.4) H 04/24/23 Calcium 9.8 mg/dL (8.4-10.2) 04/10/23 Phosphorus 3.4 mg/dL (2.7-4.5) 04/10/23 PTH Intact 90.1 pg/mL (8.7-77.1) H 04/10/23 Urine Creatinine 180.48 mg/dL 02/12/23 Renal US 04/15/23
[2023-04-24 10:38] VITALS: BP 150/70; PULSE 75; O2SAT 98
== END 2023-04-24 11:11 | disposition home or self-care (01) ==
PROVIDERS: PCP Internal Medicine; Visit Provider Internal Medicine Nephrology
DX: N18.31 Chronic kidney disease, stage 3a (principal); I10 Essential (primary) hypertension
CPT/HCPCS: 99214

== ENCOUNTER 2023-04-24 10:09 | Outpatient (REF) | payer OTHER, SELFPAY ==
[2023-04-24 11:25] LABS: MANUAL DIFF FLAG NO
[2023-04-24 13:35] LABS: Basophils Percent Auto 0.4 % (0-2); Eosinophils Absolute Auto 0.1 X10*3/uL (0.0-0.4); Eosinophils Percent Auto 1.2 % (0-4); Hematocrit 39.6 % (42.0-52.0); Hemoglobin 12.5 g/dl (14.0-18.0); Imm Gran Abs Auto 0.02 X10*3/uL (0.00-0.03); Imm Gran Pct Auto 0.3 % (0.0-0.4); Lymphocytes Absolute Auto 1.6 X10*3/uL (1.2-4.9); Lymphocytes Percent Auto 21.3 % (20-40); Mean Corpuscular HGB Conc 31.6 g/dl (31.0-36.0); Mean Corpuscular Hemoglobin 28.5 pg (27.0-33.0); Mean Corpuscular Volume 90.2 fL (80.0-98.0); Mean Platelet Volume 13.6 fL (9.4-12.4); Monocytes Absolute Auto 0.7 X10*3/uL (0.1-1.2); Monocytes Percent Auto 9.2 % (2-11); Neutrophils Absolute Auto 5.2 x10*3/uL (2.0-8.3); Neutrophils Percent Auto 67.6 % (45-73); Platelet Count 174 X10*3/uL (160-400); Red Blood Count 4.39 X10*6/uL (4.60-5.80); Red Cell Distribution Width 12.9 % (11.0-16.0); White Blood Count 7.7 X10*3/uL (4.8-10.8)
[2023-04-24 14:21] LABS: INTERNATIONAL NORM RATIO 0.9 (0.9-1.1); Prothrombin Time 10.4 SEC (11.1-13.3)
[2023-04-24 14:34] LABS: Anion Gap 12 (12-20); Blood Urea Nitrogen 22 mg/dL (9-16); Carbon Dioxide 27 mmol/L (22-29); Chloride 109 mmol/L (96-108); Estimated Glomerular Filt Rate 40; Potassium 4.7 mmol/L (3.3-5.1); Sodium 143 mmol/L (135-145)
[2023-04-29 14:58] LABS: IgA 103 mg/dL (70-320); IgG 909 mg/dL (600-1540); IgM 148 mg/dL (50-300)
== END 2023-04-24 10:10 | disposition home or self-care (01) ==
LOC: HO.LAB 10:09
PROVIDERS: PCP Internal Medicine; Visit Provider Internal Medicine Nephrology
DX: N18.30 Chronic kidney disease, stage 3 unspecified (principal)
CPT/HCPCS: 36415; 80051; 82565; 82784; 84520; 85025; 85610; 86334; 99212

== ENCOUNTER 2023-05-20 09:57 | Day surgery (SDC) | payer OTHER, SELFPAY ==
[2023-05-20] VITALS (14 sets, daily range): BP systolic 135–157; BP diastolic 59–92; PULSE 62–85; RESP 14–16; TEMP 36.6–36.9; O2SAT 97–100; BMI 29.2
--- NOTE | ~2023-05-20 | CT_ITS ---
PROCEDURE: CT GUIDED BIOPSY, KIDNEY CLINICAL INFORMATION: CKD COMPARISON: Ultrasound 04/15/2023 TECHNIQUE: This CT examination was performed using dose optimization techniques as appropriate, variously including the following: *Automated exposure control *Adjustment of mA and/or kV according to patient size (this includes techniques or standardized protocols for targeted exams where dose is matched to indication/reason for exam; i.e. extremities or head) *Use of iterative reconstruction technique DLP: mGy-cm FINDINGS/PROCEDURE: Informed consent was obtained following a discussion of the risks and benefits of the procedure with the patient utilizing a rail transportation operator. The patient was placed in a right oblique position on the CT gantry. CT images of the abdomen were performed. A site on the right flank was selected, marked and sterilely prepped and draped. 1% lidocaine was administered for local anesthesia. The right lower pole renal cortex was accessed with a 17-gauge coaxial needle under CT fluoroscopic guidance. 3 nontargeted 18-gauge core needle biopsy specimens of the right kidney were obtained. The samples were placed on a Telfa and sent to pathology. The coaxial needle was withdrawn while injecting a Gelfoam slurry. Post biopsy images do not demonstrate any evidence of significant hemorrhage or other complication. A dressing was applied. Patient tolerated residual immediate complication. Medications for conscious sedation: The patient received intravenous conscious sedation under my direct supervision. A registered nurse monitored the patient and the patient's vital signs throughout the procedure. The total sedation was 30 minutes utilizing Versed and fentanyl for good effect. CT/CT biopsy renal LT IMPRESSION: CT guided nontargeted core biopsy of the right kidney
[2023-05-20 11:24] LABS: MANUAL DIFF FLAG NO
[2023-05-20 11:28] LABS: Basophils Percent Auto 0.5 % (0-2); Eosinophils Absolute Auto 0.1 X10*3/uL (0.0-0.4); Eosinophils Percent Auto 0.8 % (0-4); Hemoglobin 12.9 g/dl (14.0-18.0); Imm Gran Abs Auto 0.01 X10*3/uL (0.00-0.03); Imm Gran Pct Auto 0.2 % (0.0-0.4); Lymphocytes Absolute Auto 1.7 X10*3/uL (1.2-4.9); Lymphocytes Percent Auto 26.5 % (20-40); Mean Corpuscular HGB Conc 33.1 g/dl (31.0-36.0); Mean Corpuscular Hemoglobin 29.1 pg (27.0-33.0); Mean Platelet Volume 12.4 fL (9.4-12.4); Monocytes Absolute Auto 0.6 X10*3/uL (0.1-1.2); Monocytes Percent Auto 9.8 % (2-11); Neutrophils Absolute Auto 3.9 x10*3/uL (2.0-8.3); Neutrophils Percent Auto 62.2 % (45-73); Platelet Count 180 X10*3/uL (160-400); Red Blood Count 4.43 X10*6/uL (4.60-5.80); White Blood Count 6.3 X10*3/uL (4.8-10.8)
[2023-05-20 11:40] LABS: INTERNATIONAL NORM RATIO 0.9 (0.9-1.1); Prothrombin Time 11.4 SEC (11.1-13.3)
[2023-05-20 11:43] LABS: Partial Thromboplastin Time 30.1 SEC (26.0-36.8)
[2023-05-20 11:52] LABS: Glucose, Whole Blood 96 mg/dL (60-115)
== END 2023-05-20 17:00 | disposition home or self-care (01) ==
PROVIDERS: Physician Assistant Surgical; Student in an Organized Health Care Education/Training Program; PCP Internal Medicine; Visit Provider Internal Medicine Nephrology
DX: N18.31 Chronic kidney disease, stage 3a (principal); E11.40 Type 2 diabetes mellitus with diabetic neuropathy, unspecified; E11.65 Type 2 diabetes mellitus with hyperglycemia; Z79.85 Long-term (current) use of injectable non-insulin antidiabetic drugs; Z79.84 Long term (current) use of oral hypoglycemic drugs; K52.9 Noninfective gastroenteritis and colitis, unspecified; K21.9 Gastro-esophageal reflux disease without esophagitis; I10 Essential (primary) hypertension; E78.00 Pure hypercholesterolemia, unspecified; E66.3 Overweight; Z85.46 Personal history of malignant neoplasm of prostate; Z85.51 Personal history of malignant neoplasm of bladder; Z88.1 Allergy status to other antibiotic agents; Z88.8 Allergy status to other drugs, medicaments and biological substances; Z98.890 Other specified postprocedural states; Z90.49 Acquired absence of other specified parts of digestive tract
CPT/HCPCS: 36415; 50200; 77012; 82947; 85025; 85610; 85730; 86850; 86900; 86901; 88300; 88305; 88313; 88346; 88348; 88350; J2250; J2310; J3010

== ENCOUNTER → 2023-05-20 11:50 | Outpatient (BNV) | payer OTHER, SELFPAY | PROVIDERS: PCP Internal Medicine; Visit Provider Student in an Organized Health Care Education/Training Program | DX: N18.30 Chronic kidney disease, stage 3 unspecified (principal) | CPT/HCPCS: 50200; 77012 ==

== ENCOUNTER 2023-05-22 09:55 | Outpatient (AMB) | payer OTHER, SELFPAY ==
--- NOTE | 2023-05-22 10:11 | HO.NEPHOV_ITS ---
HPI HPI Comments History of Present Illness Details I had the privilege of seeing Mr. Brewster in follow up for his chronic kidney disease. He is a diabetic. His last hemoglobin A1c was under 7. He is hypertensive and has been on medications. He has chronic diarrhea which is being investigated, but better. He has history of prostate cancer. He was thought to have diabetic nephropathy. He has been overweight, but improving. He denies any coronary artery disease, congestive heart failure, carotid stenosis, CVA, CHF, PUD or SHYLA. He denies taking excessive nonsteroidal anti- inflammatory medications. He does not check his blood pressure at home. He den ies chest pain, shortness of breath, proximal nocturnal dyspnea, orthopnea, pedal edema or orthostatic symptoms. His last serum creatinine has improved a bit. He is on Jardiance now. He had a renal biopsy, results of which are pending. [facility] Medical History Prostate CA Chronic diarrhea Overweight (BMI 25.0-29.9) Diabetic neuropathy Hypertension Urinary bladder cancer Obesity (BMI 30-39.9) Hypercholesterolemia GERD (gastroesophageal reflux disease) Lumbar spondylosis Type 2 diabetes mellitus with hyperglycemia Surgical History Hx of hernia repair History of prostate surgery History of colonoscopy History of cholecystectomy History of appendectomy Family History Father Diabetes Myocardial infarct Mother No problems noted. Maternal Grandmother Stomach cancer Maternal Uncle Cancer Social History Housing: Apartment Alcohol intake: never Patient Tobacco Use Status: Never used Tobacco e-Cigarette/Vaping Use: Never Used Second Hand Smoke Exposure: No service: No Current occupational status: disabled Cognitive needs: No Hearing needs: No Vision needs: Yes Vital Signs 05/22/23 10:12 Height 5 ft 9 in Weight 199 lb 2 oz BMI 29.4 BP 144/64 H Blood Pressure Location Lt brachial Pulse 70 Pulse Source Pulse Oximeter Pulse Oximetry (%) 97 Oxygen Delivery Method Room Air Physical Exam Vital Signs: Last Vital Signs Pulse 70 05/22/23 10:12 BP 144/64 H 05/22/23 10:12 Pulse Ox 97 05/22/23 10:12 Oxygen Delivery Method Room Air 05/22/23 10:12 BMI result Body Mass Index 29.4 Const General: comfortable and no acute distress Orientation/consciousness: patient oriented x3 HEENT Head: Yes normocephalic Mouth: Normal oral and palatal mucosa present Eyes EOM: EOMs intact bilaterally Neck Neck: Yes supple Resp Auscultation: clear to auscultation bilaterally Cardio Jugular venous distension: no JVD Rate: regular rate GI Palpation (GI): Soft to palpation Auscultation: normal bowel sounds General: Yes no CVA tenderness Back/Spine/Pelvis Back: no CVA tenderness Skin General skin exam: no rashes or lesions noted Neuro General: patient oriented x3 and moves all extremities Extrem General: Yes no pedal edema Assessment & Plan Assessment & Plan (1) CKD (chronic kidney disease) stage 3, GFR 30-59 ml/min: Code(s): N18.30 - Chronic kidney disease, stage 3 unspecified Qualifiers: Chronic kidney disease stage 3 subtype: stage 3a (GFR 45-59) Qualified Code(s): N18.31 - Chronic kidney disease, stage 3a (2) Hypertension: Code(s): I10 - Essential (primary) hypertension Qualifiers: Hypertension type: essential hypertension Qualified Code(s): I10 - Essential (primary) hypertension Plan Mr. Brewster has CKD stage 3 most likely due to diabetic hypertensive renal dis ease. Etiology of his diarrhea needs to be delineated as it can put him at risk for further tubular injury. He needs to lose weight. He is not on any KRISH inhibitor or ARB. His urine output is good. He has had prostate cancer and is followed up by Dr. Stark. He was started on Jardiance at the last office visit which is tolerating well. He underwent renal biopsy, results of which are pending. He should avoid nonsteroidal anti-inflammatory medications, maintain good hydration and cut back salt in the diet. I did not make any other medication changes at this visit. All his and his 's questions were answered. Follow-up given Orders: Orders Creatinine Today N18.30 - Chronic kidney disease, stage 3 unspecified Hemoglobin A1c Today N18.30 - Chronic kidney disease, stage 3 unspecified Blood Urea Nitrogen Today N18.30 - Chronic kidney disease, stage 3 unspecified Electrolytes Today N18.30 - Chronic kidney disease, stage 3 unspecified Medications: Refilled empagliflozin (Jardiance) 5 mg (1/2 x 10 mg) PO DAILY 15 tabs 3RF 30 days Coding Level of Care Code Est Pt Level 3 (56617) Diagnoses Stage 3a chronic kidney disease N18.31 Chronic kidney disease stage 3 subtype: stage 3a (GFR 45-59) Essential hypertension I10 Hypertension type: essential hypertension Results Reviewed Nephrology Results: Hgb 12.9 g/dl (14.0-18.0) L 05/20/23 WBC 6.3 X10*3/uL (4.8-10.8) 05/20/23 Plt Count 180 X10*3/uL (160-400) 05/20/23 Sodium 143 mmol/L (135-145) 04/24/23 Potassium 4.7 mmol/L (3.3-5.1) 04/24/23 Chloride 109 mmol/L (96-108) H 04/24/23 Carbon Dioxide 27 mmol/L (22-29) 04/24/23 BUN 22 mg/dL (9-16) H 04/24/23 Creatinine 1.71 mg/dL (0.5-1.4) H 04/24/23 Calcium 9.8 mg/dL (8.4-10.2) 04/10/23 Phosphorus 3.4 mg/dL (2.7-4.5) 04/10/23 PTH Intact 90.1 pg/mL (8.7-77.1) H 04/10/23 Urine Creatinine 180.48 mg/dL 02/12/23 Renal US 04/15/23
[2023-05-22 10:12] VITALS: BP 144/64; PULSE 70; O2SAT 97; BMI 29.4
== END 2023-05-22 10:27 | disposition home or self-care (01) ==
PROVIDERS: PCP Internal Medicine; Visit Provider Internal Medicine Nephrology
DX: N18.31 Chronic kidney disease, stage 3a (principal); I10 Essential (primary) hypertension
CPT/HCPCS: 99213

== ENCOUNTER → 2023-05-22 09:55 | Outpatient (BNVA) | payer OTHER, SELFPAY | PROVIDERS: PCP Internal Medicine; Visit Provider Internal Medicine Nephrology | DX: I12.9 Hypertensive chronic kidney disease with stage 1 through stage 4 chronic kidney disease, or unspecified chronic kidney disease (principal); N18.31 Chronic kidney disease, stage 3a | CPT/HCPCS: 99212 ==

== ENCOUNTER 2023-06-17 09:13 | Outpatient (REF) | payer OTHER, SELFPAY ==
[2023-06-17 10:37] LABS: Estimated Average Glucose 140 mg/dL; Hemoglobin A1c % 6.5 % (<6.0)
[2023-06-17 10:56] LABS: Anion Gap 10 (12-20); Blood Urea Nitrogen 26 mg/dL (9-16); Carbon Dioxide 25 mmol/L (22-29); Chloride 112 mmol/L (96-108); Estimated Glomerular Filt Rate 36; Potassium 3.8 mmol/L (3.3-5.1); Sodium 143 mmol/L (135-145)
== END 2023-06-17 09:14 | disposition home or self-care (01) ==
LOC: HO.LAB 09:13
PROVIDERS: PCP Internal Medicine; Visit Provider Internal Medicine Nephrology
DX: N18.30 Chronic kidney disease, stage 3 unspecified (principal)
CPT/HCPCS: 36415; 80051; 82565; 83036; 84520

== ENCOUNTER 2023-07-02 16:00 | Outpatient (REF) | payer OTHER, SELFPAY ==
[2023-07-03 12:40] LABS: Leukocytes Stool Qualitative FEW: < 2/OIF (NEGATIVE)
[2023-07-03 13:45] LABS: CDiff Gene PCR NEGATIVE (Negative)
== END 2023-07-02 16:01 | disposition home or self-care (01) ==
LOC: HO.LNP 16:00
PROVIDERS: Visit Provider Internal Medicine
DX: K52.9 Noninfective gastroenteritis and colitis, unspecified (principal)
CPT/HCPCS: 87177; 87209; 87493; 89055

== ENCOUNTER 2023-07-18 08:44 | Emergency (ER) | payer OTHER, SELFPAY ==
--- NOTE | ~2023-07-18 | CT_ITS ---
EXAMINATION: CT ABDOMEN AND PELVIS WITHOUT CONTRAST CLINICAL INFORMATION: Lower back pain COMPARISON: CT abdomen and pelvis 09/09/2017, renal ultrasound 04/15/2023 and abdominal ultrasound on 2022 TECHNIQUE: Multidetector volumetric imaging was performed from the superior aspect of the liver through the pubic symphysis. Sagittal and coronal reformatted images were obtained on the technologist's workstation. This CT examination was performed using dose optimization techniques as appropriate, variously including the following: *Automated exposure control *Adjustment of mA and/or kV according to patient size (this includes techniques or standardized protocols for targeted exams where dose is matched to indication/reason for exam; i.e. extremities or head) *Use of iterative reconstruction technique DLP: 664 mGy-cm FINDINGS: LUNG BASES: Coronary artery calcification is present, partially imaged. ABDOMINAL AND PELVIC WALL: Small fat-containing umbilical hernia. LIVER AND BILIARY TREE: Unremarkable. GALLBLADDER: Status post cholecystectomy. PANCREAS: Unremarkable. SPLEEN: Unremarkable. ADRENAL GLANDS: Unremarkable. KIDNEYS AND URETERS: Bosniak 1 benign appearing right lower pole renal cyst, no follow-up imaging recommended. A 1.5 cm right midpole renal lesion measuring greater than simple fluid density and incompletely characterized on this noncontrasted exam however in 2022 there was previously a 1.3 cm simple cyst in a similar location. No hydronephrosis or nephrolithiasis. GASTROINTESTINAL TRACT: Small hiatal hernia. Colonic diverticulosis without evidence of diverticulitis. The appendix is not identified with certainty however there are no findings to suggest appendicitis. VASCULAR: Unremarkable. LYMPH NODES/PERITONEUM: No lymphadenopathy. FREE FLUID: None. BLADDER: Unremarkable. PELVIC VISCERA: Prostate is mildly enlarged measuring 5.2 cm in transverse diameter. OSSEOUS STRUCTURES: Stable mild T12 wedge compression deformity. Mild multilevel degenerative disc disease. No acute osseous abnormality. CT/CT abdomen pelvis wo IV con IMPRESSION: 1. Mild multilevel degenerative disc disease with a stable T12 wedge compression deformity. 2. A 1.5 cm right midpole renal lesion measuring greater than simple fluid density and incompletely characterized on this noncontrasted exam however in 2022 there was previously a 1.3 cm simple cyst in a similar location, therefore this may reflect interval protein/hemorrhage into the previously seen cyst which could be confirmed with a repeat renal ultrasound. 3. Coronary artery calcification is present, partially imaged, recommend correlation with cardiac risk factors.
[2023-07-18 08:45] VITALS: BP 165/66; PULSE 65; RESP 20; TEMP 36.4; O2SAT 100; BMI 29.7
[2023-07-18] MEDS: Lidocaine 4 % Patch ADH..PATCH 1 PATCH TRANSDERMA (09:53)
[2023-07-18] MEDS: Ketorolac Tromethamine 30 MG/ML VIAL IM (09:53)
--- NOTE | 2023-07-18 09:56 | ED.BACK ---
HPI - Back Pain/Injury General Chief Complaint: Back Pain/Injury Stated Complaint: lower back pain Time Seen by Provider: 07/18/23 09:17 Source: patient Mode of arrival: ambulatory Limitations: no limitations History of Present Illness HPI Narrative: This is a 68-year-old male presenting with back pain for the past 2 days, patient reports back pain is diffuse to his entire lower back and it hurts him particularly when he is moving or walking. He reports he still able to walk however much slower than usual. He is tried [id number] medications with little to no relief. No blunt trauma. Patient reports this started after he has been working on a truck. Patient denies urinary/bowel incontinence/retention, saddle paresthesias, nausea, vomiting, abdominal pain, headache, vision changes, dizziness and weakness. Patient denies fevers, chills. No blunt trauma. Patient ambulatory into room. Related Data Previous Rx's ?Medication ?Instructions ?Recorded pen needle, diabetic 31 gauge x #100 ea 03/22/2006/26 (BD Ultra-Fine Mini Pen Needle) ketoconazole 2 % shampoo 1 appl topical 2XW #120 mL 12/28/20 fexofenadine 180 mg tablet 180 mg PO DAILY 90 days #90 tabs 04/04/21 (Hansa Allergy) simethicone 80 mg chewable tablet 80 mg PO TID-QID PRN abdominal 07/10/21 (Gas Relief (simethicone)) distention #30 tabs loperamide 2 mg tablet 2 mg PO Q6H PRN loose stool #30 01/27/22 tabs cholestyramine-aspartame 4 gram 4 g PO BID #60 ea 07/30/22 oral powder for susp in a packet (Prevalite) glipizide 2.5 mg tablet, extended 2.5 mg PO DAILY #90 tabs 10/23/22 release 24 hr omeprazole 20 mg capsule,delayed 20 mg PO DAILY #30 caps 12/31/22 release atorvastatin 20 mg tablet 20 mg PO QPM #90 tabs 02/12/23 diclofenac sodium 1 % topical gel 4 g topical QID #100 grams 02/12/23 (Voltaren Arthritis Pain) trazodone 50 mg tablet 50 mg PO BEDTIME PRN sleep #30 tabs 02/12/23 enalapril maleate 20 mg tablet 20 mg PO DAILY 90 days #90 tabs 03/13/23 amlodipine 2.5 mg tablet 2.5 mg PO DAILY #90 tabs 04/14/23 cyanocobalamin (vitamin B-12) 1,000 mcg sublingual DAILY #90 tabs 05/04/23 1,000 mcg sublingual tablet empagliflozin 10 mg tablet 5 mg (1/2 x 10 mg) PO DAILY 30 05/22/23 (Jardiance) days #15 tabs metoprolol succinate 100 mg 100 mg PO DAILY #90 tabs 07/07/23 tablet,extended release 24 hr dulaglutide 3 mg/0.5 mL 3 mg (0.5 mL) subcut QWEEK #2 mL 07/15/23 [facility] acetaminophen 325 mg capsule 650 mg (2 x 325 mg) PO Q4H PRN 07/18/23 (Tylenol) pain #30 caps ketorolac 10 mg tablet 10 mg PO TID PRN pain 5 days #15 07/18/23 tabs lidocaine 5 % topical patch 1 patch topical DAILY PRN pain #15 07/18/23 ea Allergies Allergy/AdvReac Type Severity Reaction Status Date / Time ciprofloxacin [CIPROFLOXACIN] Allergy Unknown RASH, Verified 07/18/23 08:49 anaphylaxis empagliflozin Allergy Unknown UTI [facility] 07/18/23 08:49 [facility] pioglitazone Allergy Unknown Swelling Verified 07/18/23 08:49 tamsulosin Allergy Unknown rash? Verified 07/18/23 08:49 Review of Systems Review of Systems: Constitutional : No Weight loss, No Fever, No Chills, ENT/Mouth : No Hearing loss, No Ear Pain, No Nasal Congestion, No Sinus Pain, No Hoarseness, No sore throat, No Rhinorrhea, No Swallowing Difficulty Cardiovascular : No Chest Pain, No SOB Respiratory : No Cough, No Dyspnea Gastrointestinal : No Nausea, No Vomiting, No Diarrhea, No abdominal Pain, No Hematochezia, No Melena Genitourinary : No Dysuria, No Urinary Frequency, No Hematuria, No Urinary Incontinence, Musculoskeletal : positive back pain Skin : No Skin Lesions, No rash Neuro : No Weakness, No Numbness, No Paresthesias, no loss of bowel or bladder incontinence, no saddle anesthesia Yes all other systems are reviewed and are negative PMFSH Past Medical History Attestation statement: The following information was validated with the patient. Source: old records reviewed and nursing notes reviewed Medical History Prostate CA Chronic diarrhea Overweight (BMI 25.0-29.9) Diabetic neuropathy Hypertension Urinary bladder cancer Obesity (BMI 30-39.9) Hypercholesterolemia GERD (gastroesophageal reflux disease) Lumbar spondylosis Type 2 diabetes mellitus with hyperglycemia Surgical History Hx of hernia repair History of prostate surgery History of colonoscopy History of cholecystectomy History of appendectomy Family History Family History Father Diabetes Myocardial infarct Mother No problems noted. Maternal Grandmother Stomach cancer Maternal Uncle Cancer Social History Social History Housing: Apartment Alcohol intake: never Patient Tobacco Use Status: Never used Tobacco Smoked in Last 30 Days: No e-Cigarette/Vaping Use: Never Used Second Hand Smoke Exposure: No Use of substances other than those prescribed or required for medical reasons: No Advance Directives: No Advance Directives Information Provided: No service: No Current occupational status: disabled Cognitive needs: No Hearing needs: No Vision needs: Yes Physical Exam Vital Signs: Vital Signs: Last Vital Signs Temp 97.6 F 07/18/23 08:45 Pulse 65 07/18/23 08:45 Resp 20 07/18/23 08:45 BP 165/66 H 07/18/23 08:45 Pulse Ox 100 07/18/23 08:45 O2 Del Method Room Air 07/18/23 08:45 BMI result Body Mass Index 29.7 vss Appearance: Alert.? Oriented X3.? No acute distress.? Head: Normocephalic, atraumatic, no step-offs or deformities Eyes: Pupils equal, round and reactive to light.? Neck: Normal inspection.? Neck supple.? CVS: Normal heart rate and rhythm.? Pulses normal.? Respiratory: No respiratory distress.? Breath sounds normal.? Abdomen: Soft and nontender.? Skin: Skin warm and dry.? Normal skin color.? Normal skin turgor.? Extremities: No lower extremity edema.? No calf ttp. 5/5 strength to bilateral upper and lower extremities Back: No midline tenderness, no C-spine tenderness, full range of motion, no CVA tenderness bilaterally + b/l lumbar and thoracic paraspinous tenderness throughout. Neuro: Oriented X 3.? No motor deficit.? No sensory deficit. CN 2-12 intact Ambulating w/ steady slow gait. no saddle paresthesias Course Reevaluation(s) Reevaluation #1: UA with no infection. CT pending. Time: 13:04 Reevaluation #2: CT abdomen pelvis with multilevel degenerative disc disease and a stable T12 wedge compression deformity. No recent trauma this is unlikely acute. A 1.5 cm right mid pole renal lesion noted , patient is followed by Dr. Courtney will have him follow up with him. Coronary artery calcification present partially imaged. Recommend correlation with cardiac risk factors, patient no chest pain no shortness of breath. At this time patient to be discharged home. Feeling slightly better. Educated patient on diagnosis and treatment plan, answered all question, patient verbalizes understanding. At this time patient will be discharged home, advised to return with new or worsening symptoms. Educated on worrisome signs and symptoms and when to return. At this time I feel comfortable discharge home. Time: 15:02 Medications Administered Discontinued Medications Generic Name Dose Route Start Last Admin Trade Name Binta PRN Reason Stop Dose Admin Acetaminophen 650 mg 07/18/23 13:16 07/18/23 14:21 Acetaminophen 325 Mg Tablet PO 07/18/23 13:17 650 mg ONCE ONE Administration Ketorolac Tromethamine 30 mg 07/18/23 09:23 07/18/23 09:53 Ketorolac Tromethamine 30 Mg/Ml Vial IM 07/18/23 09:24 30 mg ONCE ONE Administration Lidocaine 1 patch 07/18/23 09:23 07/18/23 09:53 Lidocaine 4 % Patch Adh..Patch TRANSDERMA 07/18/23 09:24 1 patch ONCE ONE Administration Protocol Morphine Sulfate 15 mg 07/18/23 13:03 07/18/23 14:24 Morphine Sulfate Immed Release 15 Mg Tablet PO 07/18/23 13:04 15 mg ONCE ONE Administration Medical Decision Making Medical Decision Making MDM Narrative: 68-year-old male presents with lower back pain x2 days. Physical exam significant for + b/l lumbar and thoracic paraspinous tenderness throughout. Oriented X 3.? No motor deficit.? No sensory deficit. CN 2-12 intact Ambulating w/ steady slow gait. no saddle paresthesias History and physical exam concerning for lumbar/thoracic radiculopathy versus lumbar/thoracic lumbar paraspinous muscle spasms versus lumbago. Unlikely cauda equina, cord compression, epidural abscess. Unlikely fracture, dislocation. Patient does have history of kidney stones will rule out kidney stones at this time although less likely. Unlikely UTI or metabolic derangements. Plan will obtain imaging, and medicate for pain. Differential Diagnosis Differential Diagnoses: The differential diagnosis associated with the presentation includes History and physical exam concerning for lumbar/thoracic radiculopathy versus lumbar/thoracic lumbar paraspinous muscle spasms versus lumbago. Unlikely cauda equina, cord compression, epidural abscess. Unlikely fracture, dislocation. Patient does have history of kidney stones will rule out kidney stones at this time although less likely. Unlikely UTI or metabolic derangements. Admission/Observation Consideration of admission/observation: Escalation of care including admission/observation considered Unlikely Lab Data Labs: Lab Results 07/18/23 Range/Units 09:59 Urine Color Yellow Urine Appearance Clear Urine pH 5.5 (5.0-9.0) Ur Specific [place] 1.025 (1.005-1.025) Urine Protein 30 (1+) H (Neg-Trace) mg/dL Urine Glucose (UA) >=1000 H (Negative) mg/dL Urine Ketones Negative (Negative) mg/dL Urine Blood Negative (Negative) Urine Nitrite Negative (Negative) Ur Leukocyte Esterase Negative (Negative) Urine RBC 0-2 (0-2) /HPF Urine WBC 0-5 (0-5) /HPF Ur Squamous Epith Cells 0-2 (0-2) /HPF Urine Bacteria None Seen (None Seen) Hyaline Casts 0-2 (0-2) /LPF Independent Interpretation I performed an independent interpretation of an: CT Scan Radiology Impression Discussion of test interpretation with radiology: I have reviewed the radiologist's reading. Prescription Management I considered prescription management with: Pain Medication Discharge Plan Discharge Clinical Impression: Lower back pain, Kidney lesion Patient Disposition: Home, Self-Care Instructions: Back Pain (ED) Additional Instructions: Take your medications as prescribed. If you were prescribed antibiotics today, it is important that you take your medication to their entirety, do not skip any doses, do not finish them early. Follow-up with your primary care provider this week. Return to the emergency department with new or worsening symptoms. Such as fevers, chills, chest pain, shortness of breath, nausea, vomiting, dizziness, headache, vision changes, lethargy In case of emergency call 911 Toradol has been sent to your pharmacy, you tolerated this well in the department. Please take this as prescribed do not take this with ibuprofen, or other NSAIDs, do not mix this with alcohol. Side effects of this medication including increased risk for bleeding and possible kidney injury. CT/CT abdomen pelvis wo IV con IMPRESSION: 1. Mild multilevel degenerative disc disease with a stable T12 wedge compression deformity. 2. A 1.5 cm right midpole renal lesion measuring greater than simple fluid density and incompletely characterized on this noncontrasted exam however in 2022 there was previously a 1.3 cm simple cyst in a similar location, therefore this may reflect interval protein/hemorrhage into the previously seen cyst which could be confirmed with a repeat renal ultrasound. 3. Coronary artery calcification is present, partially imaged, recommend correlation with cardiac risk factors. Prescriptions: New ketorolac 10 mg tablet 10 mg PO TID PRN (Reason: pain) 5 Days Qty: 15 0RF lidocaine 5 % adhesive patch,medicated 1 patch topical DAILY PRN (Reason: pain) Qty: 15 0RF Rx Instructions: leave on most painful area for up to 12 hrs acetaminophen [Tylenol] 325 mg capsule 650 mg PO Q4H PRN (Reason: pain) Qty: 30 0RF No Action ketoconazole 2 % shampoo 1 appl topical 2XW Qty: 120 0RF loperamide 2 mg tablet 2 mg PO Q6H PRN (Reason: loose stool) Qty: 30 1RF glipizide 2.5 mg tablet extended release 24hr 2.5 mg PO DAILY Qty: 90 2RF omeprazole 20 mg capsule,delayed release(DR/EC) 20 mg PO DAILY Qty: 30 5RF amlodipine 2.5 mg tablet 2.5 mg PO DAILY Qty: 90 0RF cyanocobalamin (vitamin B-12) 1,000 mcg tablet, sublingual 1,000 mcg sublingual DAILY Qty: 90 3RF metoprolol succinate 100 mg tablet extended release 24 hr 100 mg PO DAILY Qty: 90 3RF Trulicity 3 mg/0.5 mL pen injector 3 mg subcut QWEEK Qty: 2 3RF fexofenadine [Hansa Allergy] 180 mg tablet 180 mg PO DAILY 90 Days Qty: 90 3RF (DME) pen needle, diabetic [BD Ultra-Fine Mini Pen Needle] 31 gauge x 3/16 needle See Rx Instructions .ROUTE .MEDSUPPLY Qty: 100 3RF Rx Instructions: As directed simethicone [Gas Relief (simethicone)] 80 mg tablet,chewable 80 mg PO TID-QID PRN (Reason: abdominal distention) Qty: 30 0RF cholestyramine-aspartame [Prevalite] 4 gram powder in packet 4 g PO BID Qty: 60 3RF Rx Instructions: administer w/meal; avoid other meds within 1hr before or 4-6hr after dose trazodone 50 mg tablet 50 mg PO BEDTIME PRN (Reason: sleep) Qty: 30 0RF atorvastatin 20 mg tablet 20 mg PO QPM Qty: 90 3RF diclofenac sodium [Voltaren Arthritis Pain] 1 % gel 4 g topical QID Qty: 100 1RF Rx Instructions: apply to single knee, ankle, foot; for foot includes sole/toes/top of foot enalapril maleate 20 mg tablet 20 mg PO DAILY 90 Days Qty: 90 2RF Jardiance 10 mg tablet 5 mg PO DAILY 30 Days Qty: 15 3RF Referrals: William Christine MD [Physician] - 2 days Po,Concepción Lind MD [Primary Care Provider] - 2 days Stand Alone Forms: Work/School Release Print Language: Bangladeshi
[2023-07-18 10:14] LABS: Appearance Urine Clear; Color Urine Yellow; Glucose Urine UA >=1000 mg/dL (Negative); Leukocyte Esterase Urine Negative (Negative); Nitrite Urine Negative (Negative); PH 5.5 (5.0-9.0); Specific Gravity - Urine 1.025 (1.005-1.025); UMIC TRIGGER UACC YES; Urine Blood Negative (Negative); Urine Ketones Negative (Negative); Urine Protein 30 (1+) mg/dL (Neg-Trace)
[2023-07-18 10:23] LABS: Bacteria Urine None Seen (None Seen); Hyaline Casts Urine 0-2 /LPF (0-2); RBC Urine 0-2 /HPF (0-2); Squamous Epithelial Cell Urine 0-2 /HPF (0-2); WBC Urine 0-5 /HPF (0-5)
[2023-07-18] MEDS: Acetaminophen 325 MG TABLET 650 MG PO (14:21)
[2023-07-18] MEDS: Morphine Sulfate Immed Release 15 MG TABLET PO (14:24)
[2023-07-18 15:27] VITALS: BP 165/66; PULSE 65; RESP 20; TEMP 36.4; O2SAT 100
== END 2023-07-18 15:28 | disposition home or self-care (01) ==
PROVIDERS: Physician Assistant; Emergency Provider Student in an Organized Health Care Education/Training Program; PCP Internal Medicine
DX: M54.50 Low back pain, unspecified (principal); N28.9 Disorder of kidney and ureter, unspecified; R10.2 Pelvic and perineal pain; Z79.899 Other long term (current) drug therapy
CPT/HCPCS: 74176; 81001; 96372; 99284; J1885

== ENCOUNTER 2023-07-24 09:45 | Outpatient (AMB) | payer OTHER, SELFPAY ==
--- NOTE | 2023-07-24 09:49 | HO.NEPHOV_ITS ---
HPI HPI Comments History of Present Illness Details I had the privilege of seeing Mr. Brewster in follow up for his chronic kidney disease. He is a diabetic. His last hemoglobin A1c was under 7. He is hypertensive and has been on medications. He has chronic diarrhea which is being investigated, but better. He has history of prostate cancer. He was thought to have diabetic nephropathy. He has been overweight, but improving. He denies any coronary artery disease, congestive heart failure, carotid stenosis, CVA, CHF, PUD or SHYLA. He denies taking excessive nonsteroidal anti- inflammatory medications. He does not check his blood pressure at home. He den ies chest pain, shortness of breath, proximal nocturnal dyspnea, orthopnea, pedal edema or orthostatic symptoms. His last serum creatinine has improved a bit. He is on Jardiance now. He had a renal biopsy which showed some focal and segmental changes along with diabetic nephropathy changes. He was seen in ER recently for lower back and was prescribed Toradol which he has not started. He had a CT which showed A 1.5 cm right mid pole renal lesion . His ACEI and jardiance was stopped for unknown reasons [facility] Medical History Prostate CA Chronic diarrhea Overweight (BMI 25.0-29.9) Diabetic neuropathy Hypertension Urinary bladder cancer Obesity (BMI 30-39.9) Hypercholesterolemia GERD (gastroesophageal reflux disease) Lumbar spondylosis Type 2 diabetes mellitus with hyperglycemia Surgical History Hx of hernia repair History of prostate surgery History of colonoscopy History of cholecystectomy History of appendectomy Family History Father Diabetes Myocardial infarct Mother No problems noted. Maternal Grandmother Stomach cancer Maternal Uncle Cancer Social History Housing: Apartment Alcohol intake: never Patient Tobacco Use Status: Never used Tobacco e-Cigarette/Vaping Use: Never Used Second Hand Smoke Exposure: No service: No Current occupational status: disabled Cognitive needs: No Hearing needs: No Vision needs: Yes Vital Signs 07/24/23 09:55 Height 5 ft 9 in Weight 201 lb BMI 29.7 BP 150/74 H Blood Pressure Location Rt brachial Position Sitting Pulse 79 Pulse Source Pulse Oximeter Pulse Oximetry (%) 97 Oxygen Delivery Method Room Air Physical Exam Const General: comfortable and no acute distress Orientation/consciousness: patient oriented x3 HEENT Head: Yes normocephalic Mouth: Normal oral and palatal mucosa present Eyes EOM: EOMs intact bilaterally Neck Neck: Yes supple Resp Auscultation: clear to auscultation bilaterally Cardio Jugular venous distension: no JVD Rate: regular rate GI Palpation (GI): Soft to palpation Auscultation: normal bowel sounds General: Yes no CVA tenderness Back/Spine/Pelvis Back: no CVA tenderness Skin General skin exam: no rashes or lesions noted Neuro General: patient oriented x3 and moves all extremities Assessment & Plan Assessment & Plan (1) CKD (chronic kidney disease) stage 3, GFR 30-59 ml/min: Code(s): N18.30 - Chronic kidney disease, stage 3 unspecified Qualifiers: Chronic kidney disease stage 3 subtype: stage 3a (GFR 45-59) Qualified Code(s): N18.31 - Chronic kidney disease, stage 3a (2) Diabetic nephropathy: Code(s): E11.21 - Type 2 diabetes mellitus with diabetic nephropathy Qualifiers: Diabetes mellitus type: type 2 Qualified Code(s): E11.21 - Type 2 diabetes mellitus with diabetic nephropathy (3) Hypertension: Code(s): I10 - Essential (primary) hypertension Qualifiers: Hypertension type: essential hypertension Qualified Code(s): I10 - Essential (primary) hypertension Plan Mr. 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 He needs to lose weight. He is not on any KRISH inhibitor or ARB. His urine output is good. He has had prostate cancer and is followed up by Dr. Stark. I restarted on Jardiance 5 mg and enalaprii 2.5 mg today. He should avoid nonsteroidal anti-inflammatory medications, maintain good hydration and cut back salt in the diet. I did not make any other medication changes at this visit. All his and his 's questions were answered. Follow-up given Orders: Orders Creatinine Today N18.31 - Chronic kidney disease, stage 3a Electrolytes Today N18.31 - Chronic kidney disease, stage 3a Blood Urea Nitrogen Today N18.31 - Chronic kidney disease, stage 3a Medications: New enalapril maleate 2.5 mg PO DAILY 30 tabs 4RF empagliflozin (Jardiance) 5 mg (1/2 x 10 mg) PO DAILY 30 days 15 tabs 6RF Coding Level of Care Code Est Pt Level 4 (93392) Diagnoses Stage 3a chronic kidney disease N18.31 Chronic kidney disease stage 3 subtype: stage 3a (GFR 45-59) Diabetic nephropathy associated with type 2 diabetes mellitus E11.21 Diabetes mellitus type: type 2 Essential hypertension I10 Hypertension type: essential hypertension Results Reviewed Nephrology Results: Hgb 12.9 g/dl (14.0-18.0) L 05/20/23 WBC 6.3 X10*3/uL (4.8-10.8) 05/20/23 Plt Count 180 X10*3/uL (160-400) 05/20/23 Sodium 143 mmol/L (135-145) 06/17/23 Potassium 3.8 mmol/L (3.3-5.1) 06/17/23 Chloride 112 mmol/L (96-108) H 06/17/23 Carbon Dioxide 25 mmol/L (22-29) 06/17/23 BUN 26 mg/dL (9-16) H 06/17/23 Creatinine 1.90 mg/dL (0.5-1.4) H 06/17/23 Calcium 9.8 mg/dL (8.4-10.2) 04/10/23 Phosphorus 3.4 mg/dL (2.7-4.5) 04/10/23 PTH Intact 90.1 pg/mL (8.7-77.1) H 04/10/23 Urine Protein 30 (1+) mg/dL (Neg-Trace) H 07/18/23 Renal US 04/15/23
[2023-07-24 09:55] VITALS: BP 150/74; PULSE 79; O2SAT 97; BMI 29.7
== END 2023-07-24 10:22 | disposition home or self-care (01) ==
PROVIDERS: PCP Internal Medicine; Visit Provider Internal Medicine Nephrology
DX: N18.31 Chronic kidney disease, stage 3a (principal); E11.21 Type 2 diabetes mellitus with diabetic nephropathy; I10 Essential (primary) hypertension
CPT/HCPCS: 99214

== ENCOUNTER → 2023-07-24 09:45 | Outpatient (BNVA) | payer OTHER, SELFPAY | PROVIDERS: PCP Internal Medicine; Visit Provider Internal Medicine Nephrology | DX: E11.22 Type 2 diabetes mellitus with diabetic chronic kidney disease (principal); I12.9 Hypertensive chronic kidney disease with stage 1 through stage 4 chronic kidney disease, or unspecified chronic kidney disease; N18.31 Chronic kidney disease, stage 3a; E11.21 Type 2 diabetes mellitus with diabetic nephropathy | CPT/HCPCS: 99212 ==

== ENCOUNTER 2023-08-12 16:11 | Outpatient (AMB) | payer OTHER, SELFPAY ==
[2023-08-12 16:13] VITALS: BP 146/88; PULSE 67; O2SAT 98; BMI 29.7
--- NOTE | 2023-08-12 16:13 | MHC.PC.OV ---
Vital Signs 08/12/23 16:13 08/12/23 16:42 Height 5 ft 9 in Weight 201 lb BMI 29.7 BP 146/88 H 138/70 Blood Pressure Location Lt brachial Lt brachial Position Sitting Sitting Pulse 67 Pulse Source Pulse Oximeter Pulse Oximetry (%) 98 Oxygen Delivery Method Room Air Intake Visit Reasons: DM Dinkey Engineer Required: Yes Writer Editor: Not Required per policy Accompanied by: Self / Same As Patient Allergies ciprofloxacin [CIPROFLOXACIN] Allergy (Unknown, Verified 08/12/23 16:14) RASH, anaphylaxis pioglitazone Allergy (Unknown, Verified 08/12/23 16:14) Swelling tamsulosin Allergy (Unknown, Verified 08/12/23 16:14) rash? Medication List - Last Reconciled 08/12/23 by Concepción Lind Po, atorvastatin 20 mg PO QPM cyanocobalamin (vitamin B-12) 1,000 mcg sublingual DAILY diclofenac sodium 1% (Voltaren Arthritis Pain) 4 grams topical QID dulaglutide (Trulicity) 3 mg (0.5 mL) subcut QWEEK empagliflozin (Jardiance) 5 mg (1/2 x 10 mg) PO DAILY 30 days enalapril maleate 2.5 mg PO DAILY lidocaine 5% 1 patch topical DAILY PRN metoprolol succinate ER 100 mg PO DAILY omeprazole 20 mg PO DAILY pen needle, diabetic (BD Ultra-Fine Mini Pen Needle) As directed Tobacco use date assessed: 08/12/23 Fall risk assessment: No Falls in past year Last assessed Fall Risk: 08/12/23 Dental Screening Dental Screen Date: 08/12/23 Did you have a dental visit in the last 12 months?: Yes Did you have a dental problem in the last 6 months where you did not have access to dental care?: No Was dental information given to patient?: Patient has dentist HPI DM HPI Details 68-year-old overweight male with controlled diabetes mellitus hypercholesterolemia GERD history of urinary bladder cancer renal insufficiency last seen in February 2023. Patient's last colonoscopy was done in December 2022. 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 Notes from Nephrology 07/24/2023 advised weight loss, restarted Jardiance 5 mg once a day and enalapril 2.5 mg today avoid NSAIDs Tristen [id number] then Pedro [id number] occ dizzy PAtient expresses to have a physical exam [facility] Medical History Prostate CA Chronic diarrhea Overweight (BMI 25.0-29.9) Diabetic neuropathy Hypertension Urinary bladder cancer Obesity (BMI 30-39.9) Hypercholesterolemia GERD (gastroesophageal reflux disease) Lumbar spondylosis Type 2 diabetes mellitus with hyperglycemia Surgical History Hx of hernia repair History of prostate surgery History of colonoscopy History of cholecystectomy History of appendectomy Family History Father Diabetes Myocardial infarct Mother No problems noted. Maternal Grandmother Stomach cancer Maternal Uncle Cancer Social History Housing: Apartment Alcohol intake: never Patient Tobacco Use Status: Never used Tobacco e-Cigarette/Vaping Use: Never Used Second Hand Smoke Exposure: No service: No Current occupational status: disabled Cognitive needs: No Hearing needs: No Vision needs: Yes Questionnaire PHQ-9 Over the last 2 weeks, how often have you been bothered by any of the following problems? 1. Little interest or pleasure in doing things: not at all 2. Feeling down, depressed, or hopeless: not at all 3. Trouble falling or staying asleep, or sleeping too much: not at all 4. Feeling tired or having little energy: not at all 5. Poor appetite or overeating: not at all 6. Feeling bad about yourself - or that you are a failure or have let yourself or your family down: not at all 7. Trouble concentrating on things, such as reading the newspaper or watching television: not at all 8. Moving or speaking so slowly that other people could have noticed. Or the opposite - being so fidgety or restless that you have been moving around a lot more than usual: not at all 9. Thoughts that you would be better off or of hurting yourself in some way: not at all Total score: 0 Depression Screening Interpretation: Negative Depression Screening Done: Yes Source: Developed by Drs. Yosi Melchor, Radha Laura, Shivam Mcnally and colleagues, with an educational jamar from [employer]. Thrive Questionnaire Date Thrive assessed: 08/12/23 I am a: Patient What is your living situation today?: I have a steady place to live Within the past 12 months, did the food you bought not last and you didn't have the money to get more?: Never true Within the past 12 months, did you worry whether your food would run out before you got money to buy more?: Never true Do you have trouble paying for medicines?: No Do you have trouble getting transportation to medical appointments?: No Do you have trouble paying your heating and electricity bill?: No Do you have trouble taking care of your child, family member or friend?: No Do you have trouble with day-to-day activities such as bathing, preparing meals, shopping, managing finances, etc.?: No Are you currently unemployed and looking for a job?: No Are you interested in more education?: No Please select the resources that you would like help with: None THRIVE Score: 0 AUDIT C Alcohol Use Questionnaire (AUDIT-C) 1. How often do you have a drink containing alcohol?: Never 3. How often do you have six or more drinks on one occasion?: Never Total Score: 0 Score Reviewed/Action Taken: No MADELINE-7 AMB Questionnaire MADELINE-7 Date MADELINE - 7 assessed: 08/12/23 Feeling nervous, anxious, or on edge: 0 = Not at all Not being able to stop or control worryin = Not at all Worrying too much about different things: 0 = Not at all Trouble relaxin = Not at all Being so restless that it is hard to sit still: 0 = Not at all Becoming easily annoyed or irritable: 0 = Not at all Feeling afraid as if something awful might happen: 0 = Not at all Total MADELINE-7 score (0-4 normal; 5-9 mild; 10-14 moderate; 15-21 severe): 0 Source: Developed by Drs. Yosi Melchor, Radha Laura, Shivam Mcnlaly and colleagues, with an educational jamar from [employer]. Review of Systems Const Denies poor appetite and Denies weakness Eyes Denies no additional complaints ENT Reports Normal hearing present, Denies dizziness, Denies nasal congestion, Denies tinnitus and Denies sore throat Card Denies chest pain, Denies syncope, Denies rapid heart rate and Denies dyspnea Resp Denies cough and Denies dyspnea GI Denies change in stool character, Reports constipation, Denies diarrhea, Denies nausea and Denies vomiting Denies dysuria and Denies urinary frequency Neuro Reports Normal hearing present, Denies confusion, Denies dizziness, Denies syncope and Denies weakness Psych Denies confusion Physical exam (Primary Care) Vital Signs: Last Vital Signs Pulse 67 08/12/23 16:13 BP 146/88 H 08/12/23 16:13 Pulse Ox 98 08/12/23 16:13 Oxygen Delivery Method Room Air 08/12/23 16:13 BMI result Body Mass Index 29.7 Tobacco/Smoking Status: Tobacco use Status Tobacco use date assessed 08/12/23 08/12/23 16:15 Patient Tobacco Use Status Never used Tobacco 08/12/23 16:15 e-Cigarette/Vaping Use Never Used 08/12/23 16:15 PHQ-9: PHQ-9 Score PHQ-9: Total score 0 08/12/23 16:15 Depression Screening Interpretation: Negative Thrive Assessment: Date of Thrive Assessment Date Thrive assessed 08/12/23 08/12/23 16:15 Const General: alert; No acute distress or confusion Orientation/consciousness: No confusion HENMT Head: Yes normocephalic Ears: external ears normal and TM's normal bilaterally Face and sinus: Yes normal facial exam Mouth: moist mucous membranes Throat: Yes tonsils normal Eyes Conjunctivae: conjunctivae normal Pupils: Equal, round and reactive pupils present and Pupil accommodation reflex normal Direct Ophthalmoscopy: normal light reflex Neck Neck: No lymphadenopathy Thyroid: Thyroid normal Chest Chest palpation & inspection: normal inspection of the chest Resp Effort & Inspection: normal respiratory effort and no audible wheezes Auscultation: clear to auscultation bilaterally Cardio Rate: regular rate Rhythm: regular rhythm Peripheral pulses: radial pulses present and dorsalis pedis present GI Other: 12/2022 colon test Inspection: Yes normal to inspection Palpation (GI): no masses Auscultation: normal bowel sounds and normoactive bowel sounds Rectal Exam - Male: Yes deferred Male General Exam: Yes normal external exam Skin General skin exam: no rashes or lesions noted Rashes: no rashes Neuro General: No confusion Cranial nerves: Yes Equal, round and reactive pupils present and Yes Normal hearing present Cognition (Neuro): normal cognition Gait exam (Neuro): Normal gait present Motor exam (neuro): 5/5 motor strength present throughout Deep tendon reflexes (DTR's): Right brachioradialis reflex intensity grade: 2+, Left brachioradialis reflex intensity grade: 2+, Right patellar reflex intensity grade: 2+ and Left patellar reflex intensity grade: 2+ Extrem General: Yes normal to inspection and No edema Assessment and Plan Assessment & Plan (1) Type 2 diabetes mellitus with hyperglycemia: Code(s): E11.65 - Type 2 diabetes mellitus with hyperglycemia Qualifiers: Diabetes mellitus alf insulin use: without alf use Qualified Code(s): E11.65 - Type 2 diabetes mellitus with hyperglycemia Plan: Decrease the amount of carbohydrate intake, pasta, bread, rice and potatoes are all sugar and that is aside from all the sweet stuff, remember that fruits are good but they are Sweet also. Hemoglobin A1c goal of less than 7.0. Patient was placed back on Jardiance by [facility] 3 mg once a week (2) GERD (gastroesophageal reflux disease): Code(s): K21.9 - Gastro-esophageal reflux disease without esophagitis Qualifiers: Esophagitis presence: without esophagitis Qualified Code(s): K21.9 - Gastro-esophageal reflux disease without esophagitis Plan: Avoid the foods that causes that usually spicy foods, tomato products, juices, coffee, soda and foods that your sensitive to. After eating do not lie down, allow 3-4 hours before in lie down. And keep the head of bed above 30 degrees to avoid the acid from going up. (3) Hypercholesterolemia: Code(s): E78.00 - Pure hypercholesterolemia, unspecified Plan: Avoid fried foods, chicken skin, eggs, butter margarine, pastries and meat. Be it pork or beef they have a lot of cholesterol LDL goal of less than 100 and triglyceride of less than 150. On atorvastatin 20 mg once a day (4) Urinary bladder cancer: Comment: November 2017 Dr. Stark Code(s): C67.9 - Malignant neoplasm of bladder, unspecified Plan: Patient follows up with urology (5) Hypertension: Code(s): I10 - Essential (primary) hypertension Qualifiers: Hypertension type: essential hypertension Qualified Code(s): I10 - Essential (primary) hypertension Plan: Continue with blood pressure medication. Decrease salt intake and exercise presently on metoprolol 100 mg once a day enalapril 2.5 mg once a day (6) Overweight (BMI 25.0-29.9): Code(s): E66.3 - Overweight Plan: Diet and exercise (7) CKD (chronic kidney disease) stage 3, GFR 30-59 ml/min: Code(s): N18.30 - Chronic kidney disease, stage 3 unspecified Qualifiers: Chronic kidney disease stage 3 subtype: stage 3a (GFR 45-59) Qualified Code(s): N18.31 - Chronic kidney disease, stage 3a Plan: Patient has been seen by Nephrology placed back on enalapril, continue with Jardiance keep off NSAIDs keep well hydrated (8) Annual physical exam: Code(s): Z00.00 - Encounter for general adult medical examination without abnormal findings (9) Insomnia: Code(s): G47.00 - Insomnia, unspecified Orders: Orders Comprehensive Met. Panel Today E11.65 - Type 2 diabetes mellitus with hyperglycemia IRON PROFILE Today E11.65 - Type 2 diabetes mellitus with hyperglycemia Prostate Specific Antigen Scr Today E11.65 - Type 2 diabetes mellitus with hyperglycemia T Spot TB Today E11.65 - Type 2 diabetes mellitus with hyperglycemia Complete Blood Count Auto Diff Today E11.65 - Type 2 diabetes mellitus with hyperglycemia Reticulocyte Count Today E11.65 - Type 2 diabetes mellitus with hyperglycemia Ferritin Today E11.65 - Type 2 diabetes mellitus with hyperglycemia Medications: New trazodone 50 mg PO BEDTIME PRN 30 tabs 1RF sleep G47.00 - Insomnia, unspecified trazodone 50 mg PO BEDTIME PRN 30 tabs 1RF sleep G47.00 - Insomnia, unspecified Coding Level of Care Code Est Pt Prev Care >65y(83373) Diagnoses Type 2 diabetes mellitus with hyperglycemia, without long-term current use of insulin E11.65 Diabetes mellitus alf insulin use: without distribution superintendent use Gastroesophageal reflux disease without esophagitis K21.9 Esophagitis presence: without esophagitis Hypercholesterolemia E78.00 Urinary bladder cancer C67.9 Essential hypertension I10 Hypertension type: essential hypertension Overweight (BMI 25.0-29.9) E66.3 Stage 3a chronic kidney disease N18.31 Chronic kidney disease stage 3 subtype: stage 3a (GFR 45-59) Annual physical exam Z00.00 Insomnia G47.00 Additional Codes PHQ-9 - 66016 - PHQ-9 Billing: ([id number])
[2023-08-12 16:42] VITALS: BP 138/70
== END 2023-08-12 17:16 | disposition home or self-care (01) ==
PROVIDERS: PCP Internal Medicine; Visit Provider Internal Medicine
DX: Z00.00 Encounter for general adult medical examination without abnormal findings (principal); I12.9 Hypertensive chronic kidney disease with stage 1 through stage 4 chronic kidney disease, or unspecified chronic kidney disease; E11.65 Type 2 diabetes mellitus with hyperglycemia; N18.31 Chronic kidney disease, stage 3a; C67.9 Malignant neoplasm of bladder, unspecified; K21.9 Gastro-esophageal reflux disease without esophagitis; E78.00 Pure hypercholesterolemia, unspecified; E66.3 Overweight; G47.00 Insomnia, unspecified
CPT/HCPCS: 99397

== ENCOUNTER 2023-08-13 09:42 | Outpatient (REF) | payer OTHER, SELFPAY ==
[2023-08-13 10:09] LABS: MANUAL DIFF FLAG NO
[2023-08-13 10:37] LABS: Basophils Percent Auto 0.4 % (0-2); Eosinophils Percent Auto 0.5 % (0-4); Hematocrit 40.7 % (42.0-52.0); Hemoglobin 13.2 g/dl (14.0-18.0); Imm Gran Abs Auto 0.03 X10*3/uL (0.00-0.03); Imm Gran Pct Auto 0.4 % (0.0-0.4); Immature Retic Fraction 10.6 % (2.3-13.4); Lymphocytes Absolute Auto 1.7 X10*3/uL (1.2-4.9); Lymphocytes Percent Auto 21.2 % (20-40); Mean Corpuscular HGB Conc 32.4 g/dl (31.0-36.0); Mean Corpuscular Volume 89.5 fL (80.0-98.0); Mean Platelet Volume 13.8 fL (9.4-12.4); Monocytes Absolute Auto 0.6 X10*3/uL (0.1-1.2); Monocytes Percent Auto 7.6 % (2-11); Neutrophils Absolute Auto 5.7 x10*3/uL (2.0-8.3); Neutrophils Percent Auto 69.9 % (45-73); Platelet Count 155 X10*3/uL (160-400); Red Blood Count 4.55 X10*6/uL (4.60-5.80); Red Cell Distribution Width 13.5 % (11.0-16.0); Retic HGB Equivalent 33.6 pg (30.0-35.0); Reticulocyte Percent 0.9 % (0.5-1.8); Reticulocytes Absolute 0.042 X10*6/uL (0.026-0.095); White Blood Count 8.1 X10*3/uL (4.8-10.8)
[2023-08-13 11:21] LABS: Alanine Aminotransferase 18 U/L (0-40); Albumin Level 4.4 g/dL (3.5-5.0); Alkaline Phosphatase 100 U/L (39-117); Anion Gap 14 (12-20); Aspartate Amino Transferase 13 U/L (5-37); Blood Urea Nitrogen 26 mg/dL (9-16); Carbon Dioxide 23 mmol/L (22-29); Chloride 107 mmol/L (96-108); Estimated Glomerular Filt Rate 29; Glucose Random 268 mg/dL (60-115); Iron 85 mcg/dL (45-160); Percent Iron Saturation 31 % (15-50); Potassium 4.1 mmol/L (3.3-5.1); Sodium 140 mmol/L (135-145); Total Iron Binding Capacity 272 mcg/dL (228-428); Total Protein 7.3 g/dL (6.5-8.0); Unsaturated Iron Binding 187 ug/dL
[2023-08-13 11:25] LABS: Ferritin 47 ng/mL (20-250)
[2023-08-13 11:26] LABS: Prostate Specific Antigen Scr 2.68 ng/mL (<0.05-4.0)
[2023-08-16 00:23] LABS: TS Negative Control Passed; TS Panel A 1; TS Panel B 0; TS Positive Control Passed; TSpotTB Negative (Negative)
== END 2023-08-13 09:43 | disposition home or self-care (01) ==
LOC: HO.LAB 09:42
PROVIDERS: Internal Medicine Nephrology; PCP Internal Medicine; Visit Provider Internal Medicine
DX: Z12.5 Encounter for screening for malignant neoplasm of prostate (principal); Z11.1 Encounter for screening for respiratory tuberculosis; E11.65 Type 2 diabetes mellitus with hyperglycemia
CPT/HCPCS: 36415; 80053; 82728; 83540; 84153; 85025; 85045; 86481

== ENCOUNTER 2023-09-02 08:00 | Outpatient (REF) | payer OTHER, SELFPAY ==
[2023-09-02 08:47] LABS: Anion Gap 13 (12-20); Blood Urea Nitrogen 31 mg/dL (9-16); Carbon Dioxide 22 mmol/L (22-29); Chloride 111 mmol/L (96-108); Estimated Glomerular Filt Rate 32; Potassium 4.3 mmol/L (3.3-5.1); Sodium 142 mmol/L (135-145)
== END 2023-09-02 08:01 | disposition home or self-care (01) ==
LOC: HO.LAB 08:00
PROVIDERS: PCP Internal Medicine; Visit Provider Internal Medicine Nephrology
DX: N18.31 Chronic kidney disease, stage 3a (principal)
CPT/HCPCS: 36415; 80051; 82565; 84520

== ENCOUNTER 2023-09-16 09:12 | Outpatient (AMB) | payer OTHER, SELFPAY ==
--- NOTE | 2023-09-16 09:23 | HO.NEPHOV ---
Vital Signs 09/16/23 09:34 Height 5 ft 9 in Weight 206 lb BMI 30.4 BP 140/80 H Blood Pressure Location Lt brachial Position Sitting Pulse 53 Pulse Source Pulse Oximeter Pulse Oximetry (%) 98 Oxygen Delivery Method Room Air Intake Visit Reasons: CKD/ 2 MO FU/ LVM Intake Note: [employer] services refused, refusal form signed and scanned into chart. Accompanied by: Significant Other Allergies ciprofloxacin [CIPROFLOXACIN] Allergy (Unknown, Verified 09/16/23 09:29) RASH, anaphylaxis pioglitazone Allergy (Unknown, Verified 09/16/23 09:29) Swelling tamsulosin Allergy (Unknown, Verified 09/16/23 09:29) rash? HPI Comments Details: I had the privilege of seeing Mr. Brewster in follow up for his chronic kidney disease. He is a diabetic. His last hemoglobin A1c was under 7. He is hypertensive and has been on medications. He has history of prostate cancer. He was thought to have diabetic nephropathy. He has been overweight, but improving. He denies any coronary artery disease, congestive heart failure, carotid stenosis, CVA, CHF, PUD or SHYLA. He denies taking excessive nonsteroidal anti-inflammatory medications. He does not check his blood pressure at home. He denies chest pain, shortness of breath, proximal nocturnal dyspnea, orthopnea, pedal edema or orthostatic symptoms. His last serum creatinine has improved a bit. He is on Jardiance now. He had a renal biopsy which showed some focal and segmental changes along with diabetic nephropathy changes. He had a CT which showed A 1.5 cm right mid pole renal lesion . [facility] Medical History Prostate CA Chronic diarrhea Overweight (BMI 25.0-29.9) Diabetic neuropathy Hypertension Urinary bladder cancer Obesity (BMI 30-39.9) Hypercholesterolemia GERD (gastroesophageal reflux disease) Lumbar spondylosis Type 2 diabetes mellitus with hyperglycemia Surgical History Hx of hernia repair History of prostate surgery History of colonoscopy History of cholecystectomy History of appendectomy Family History Father Diabetes Myocardial infarct Mother No problems noted. Maternal Grandmother Stomach cancer Maternal Uncle Cancer Social History Housing: Apartment Alcohol intake: never Patient Tobacco Use Status: Never used Tobacco e-Cigarette/Vaping Use: Never Used Second Hand Smoke Exposure: No service: No Current occupational status: disabled Cognitive needs: No Hearing needs: No Vision needs: Yes Physical Exam Vital Signs: Last Vital Signs Pulse 53 09/16/23 09:34 BP 140/80 H 09/16/23 09:34 Pulse Ox 98 09/16/23 09:34 Oxygen Delivery Method Room Air 09/16/23 09:34 BMI result Body Mass Index 30.4 Const General: comfortable and no acute distress Orientation/consciousness: patient oriented x3 HEENT Head: Yes normocephalic Mouth: Normal oral and palatal mucosa present Eyes EOM: EOMs intact bilaterally Neck Neck: Yes supple Resp Auscultation: clear to auscultation bilaterally Cardio Jugular venous distension: no JVD Rate: regular rate GI Palpation (GI): Soft to palpation Auscultation: normal bowel sounds General: Yes no CVA tenderness Back/Spine/Pelvis Back: no CVA tenderness Skin General skin exam: no rashes or lesions noted Neuro General: patient oriented x3 and moves all extremities Extrem General: Yes no pedal edema Results Reviewed Nephrology Results: Hgb 13.2 g/dl (14.0-18.0) L 08/13/23 WBC 8.1 X10*3/uL (4.8-10.8) 08/13/23 Plt Count 155 X10*3/uL (160-400) L 08/13/23 Sodium 142 mmol/L (135-145) 09/02/23 Potassium 4.3 mmol/L (3.3-5.1) 09/02/23 Chloride 111 mmol/L (96-108) H 09/02/23 Carbon Dioxide 22 mmol/L (22-29) 09/02/23 BUN 31 mg/dL (9-16) H 09/02/23 Creatinine 2.10 mg/dL (0.5-1.4) H 09/02/23 Calcium 10.0 mg/dL (8.4-10.2) 08/13/23 Urine Protein 30 (1+) mg/dL (Neg-Trace) H 07/18/23 Assessment & Plan Assessment & Plan (1) CKD (chronic kidney disease) stage 3, GFR 30-59 ml/min: Code(s): N18.30 - Chronic kidney disease, stage 3 unspecified Category: Medical Qualifiers: Chronic kidney disease stage 3 subtype: stage 3a (GFR 45-59) Qualified Code(s): N18.31 - Chronic kidney disease, stage 3a (2) Hypertension: Code(s): I10 - Essential (primary) hypertension Category: Medical Qualifiers: Hypertension type: essential hypertension Qualified Code(s): I10 - Essential (primary) hypertension Plan Mr. 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 He needs to lose weight. His urine output is good. He has had prostate cancer and is followed up by Dr. Stark. I increased Jardiance to 10 mg and he can continue enalaprii 20 mg today. He should avoid nonsteroidal anti-inflammatory medications, maintain good hydration and cut back salt in the diet. I did not make any other medication changes at this visit. All his and his 's questions were answered. Follow-up given Orders: Orders Blood Urea Nitrogen Today I10 - Essential (primary) hypertension, N18.31 - Chronic kidney disease, stage 3a Electrolytes Today I10 - Essential (primary) hypertension, N18.31 - Chronic kidney disease, stage 3a Creatinine Today I10 - Essential (primary) hypertension, N18.31 - Chronic kidney disease, stage 3a Medications: Changed From empagliflozin (Jardiance) 5 mg (1/2 x 10 mg) PO DAILY 30 days 15 tabs 6RF To empagliflozin (Jardiance) 10 mg PO DAILY 30 days 30 tabs 6RF Coding Level of Care Code Est Pt Level 4 (63560) Diagnoses Stage 3a chronic kidney disease N18.31 Chronic kidney disease stage 3 subtype: stage 3a (GFR 45-59) Essential hypertension I10 Hypertension type: essential hypertension
[2023-09-16 09:34] VITALS: BP 140/80; PULSE 53; O2SAT 98; BMI 30.4
== END 2023-09-16 09:55 | disposition home or self-care (01) ==
PROVIDERS: PCP Internal Medicine; Visit Provider Internal Medicine Nephrology
DX: N18.31 Chronic kidney disease, stage 3a (principal); I10 Essential (primary) hypertension
CPT/HCPCS: 99214

== ENCOUNTER → 2023-09-16 09:12 | Outpatient (BNVA) | payer OTHER, SELFPAY | PROVIDERS: PCP Internal Medicine; Visit Provider Internal Medicine Nephrology | DX: I12.9 Hypertensive chronic kidney disease with stage 1 through stage 4 chronic kidney disease, or unspecified chronic kidney disease (principal); E11.65 Type 2 diabetes mellitus with hyperglycemia; N18.31 Chronic kidney disease, stage 3a | CPT/HCPCS: 99212 ==

== ENCOUNTER 2023-10-10 12:31 | Emergency (ER) | payer OTHER, SELFPAY ==
--- NOTE | ~2023-10-10 | XR_ITS ---
EXAMINATION: XR LUMBAR SPINE CLINICAL INFORMATION: Reason for Exam right lumbar pain COMPARISON: Prior study 09/27/2012 TECHNIQUE: Frontal lateral and coned-down L5-S1 frontal lateral, total of 3 views FINDINGS: Five [id number] lumbar vertebrae were identified maintaining normal height and alignments. Narrowing of intervertebral disc spaces suggest underlying degenerative disc disease. Paravertebral soft tissues are unremarkable. There are radiolucencies, most likely superimposed bowel gas.. No radiographic evidence of osteolytic or osteoblastic lesions. XR/XR lumbar spine 2-3V IMPRESSION: Degenerative disc disease, no fracture.
[2023-10-10 12:51] VITALS: BP 162/72; PULSE 69; RESP 18; TEMP 36.1; O2SAT 99; BMI 29.5
--- NOTE | 2023-10-10 12:53 | ED_ITS ---
HPI - Back Pain/Injury General Chief Complaint: Back Pain/Injury Stated Complaint: back pain, into L leg Time Seen by Provider: 10/10/23 13:49 Source: patient and RN notes reviewed Mode of arrival: ambulatory Limitations: no limitations History of Present Illness ED Provider: Leena Miner PA-C HPI Narrative: This is a 68-year-old male, with a history of diabetes, who presents to the emergency department with complaints of low back pain x2 days. Patient states that 2 days ago he woke up and he was having right-sided back pain that is now radiating down his right leg. Denies any recent trauma, injury, or heavy lifting. He states that he has a history of similar symptoms in the past. He has been taking which has not provided him with any relief. He denies any fevers, chills, chest pain, shortness of breath, abdominal pain, nausea, vomiting or diarrhea. No urinary or bowel incontinence or retention. No saddle anesthesia. No other complaints or concerns at this time. MD elicited complaint: back pain Pertinent past history: prior back pain Onset (ago): day(s) Timing: constant Severity: moderate Similar Symptoms Previously: Yes Quality: aching Location: lumbar spine Radiation: right leg below the knee Exacerbating factors: movement Relieving factors: immobilization Associated symptoms: denies other symptoms Work related injury: No Related Data Home Medications ?Medication ?Instructions ?Recorded ?Confirmed enalapril maleate 20 mg tablet 20 mg PO DAILY 09/16/23 Previous Rx's ?Medication ?Instructions ?Recorded pen needle, diabetic 31 gauge x #100 ea 03/22/2006/26 (BD Ultra-Fine Mini Pen Needle) cyanocobalamin (vitamin B-12) 1,000 mcg sublingual DAILY #90 tabs 05/04/23 1,000 mcg sublingual tablet metoprolol succinate 100 mg 100 mg PO DAILY #90 tabs 07/07/23 tablet,extended release 24 hr dulaglutide 3 mg/0.5 mL 3 mg (0.5 mL) subcut QWEEK #2 mL 07/15/23 subcutaneous pen injector ([facility]) lidocaine 5 % topical patch 1 patch topical DAILY PRN pain #15 07/18/23 ea atorvastatin 20 mg tablet 20 mg PO QPM #90 tabs 08/12/23 glipizide 2.5 mg tablet, extended 2.5 mg PO DAILY #90 tabs 08/24/23 release 24 hr empagliflozin 10 mg tablet 10 mg PO DAILY 30 days #30 tabs 09/16/23 (Jardiance) diclofenac sodium 1 % topical gel 4 g topical QID #100 grams 09/22/23 (Voltaren Arthritis Pain) omeprazole 20 mg capsule,delayed 20 mg PO DAILY #30 caps 10/05/23 release acetaminophen 500 mg tablet 500 mg PO QID PRN pain #30 tabs 10/10/23 (Tylenol Extra Strength) cyclobenzaprine 10 mg tablet 10 mg PO TID PRN muscle spasm #10 10/10/23 tabs lidocaine 5 % topical patch 1 patch topical DAILY #30 ea 10/10/23 (Lidoderm) oxycodone 5 mg capsule 5 mg PO Q6H PRN pain #12 caps 10/10/23 Allergies Allergy/AdvReac Type Severity Reaction Status Date / Time ciprofloxacin [CIPROFLOXACIN] Allergy Unknown RASH, Verified 10/10/23 12:52 anaphylaxis pioglitazone Allergy Unknown Swelling Verified 10/10/23 12:52 tamsulosin Allergy Unknown rash? Verified 10/10/23 12:52 Review of Systems Review of Systems: Yes all other systems are reviewed and are negative Constitutional: Constitutional: Reports as per HPI [facility] Past Medical History Medical History Prostate CA Chronic diarrhea Overweight (BMI 25.0-29.9) Diabetic neuropathy Hypertension Urinary bladder cancer Obesity (BMI 30-39.9) Hypercholesterolemia GERD (gastroesophageal reflux disease) Lumbar spondylosis Type 2 diabetes mellitus with hyperglycemia Surgical History Hx of hernia repair History of prostate surgery History of colonoscopy History of cholecystectomy History of appendectomy Family History Family History Father Diabetes Myocardial infarct Mother No problems noted. Maternal Grandmother Stomach cancer Maternal Uncle Cancer Social History Social History Housing: Apartment Alcohol intake: never Patient Tobacco Use Status: Never used Tobacco e-Cigarette/Vaping Use: Never Used Second Hand Smoke Exposure: No Advance Directives: No Advance Directives Information Provided: Yes Do you have a plan to hurt others: No Plan service: No Current occupational status: disabled Cognitive needs: No Hearing needs: No Vision needs: Yes Physical Exam Vital Signs: Vital Signs: Last Vital Signs Temp 97.8 F 10/10/23 16:12 Pulse 16 L 10/10/23 16:12 Resp 16 10/10/23 16:12 BP 187/79 H 10/10/23 16:12 Pulse Ox 99 10/10/23 16:12 O2 Del Method Room Air 10/10/23 16:12 BMI result Body Mass Index 29.5 Const: General: cooperative, comfortable and no acute distress Orientation/consciousness: patient oriented x3 Limitations: no limitations HEENT: Head: Yes normal to inspection, Yes normocephalic and Yes atraumatic Ears: hearing grossly normal bilaterally General nose exam: Normal external nose present Face and sinus: Yes normal facial exam Mouth: Normal oral and palatal mucosa present, oropharynx normal and moist mucous membranes Throat: Yes posterior oropharynx normal Eyes: General: appearance normal, both eyes and all related structures Eyelids: Yes eyelids normal Conjunctivae: conjunctivae normal Sclerae: sclerae normal Pupils: Equal, round and reactive pupils present EOM: EOMs intact bilaterally Neck: Neck: Yes normal visual inspection, Yes full ROM and Yes no lymphadenopathy Lymphatic: no lymphadenopathy noted Chest: Chest palpation & inspection: normal inspection of the chest Resp: Effort & Inspection: normal respiratory effort and able to speak in complete sentences Auscultation: clear to auscultation bilaterally, no crackles, no rales, no rhonchi and no wheezes Cardio: Rate: regular rate Rhythm: regular rhythm Heart sounds: S1 normal heart sound present and S2 normal heart sound present GI: Inspection: Yes normal to inspection Back/Spine/Pelvis: Other: Tenderness palpation along the midline spine and right paraspinous muscles overlying the SI joint. Positive straight leg raise on the right. Skin: General skin exam: no rashes or lesions noted Trauma: no lacerations or abrasions Wounds: no wounds Neuro: General: patient oriented x3 and moves all extremities Cranial nerves: Yes Equal, round and reactive pupils present Extrem: General: Yes normal to inspection Right upper extremity: normal to inspection Left upper extremity: normal to inspection Right lower extremity: normal to inspection Left lower extremity: normal to inspection Course Course Course Narrative: This is a Rapid Medical Examination (RME) performed by Lucio Lee PA-C in triage. Full HPI, ROS, assessment and treatment plan per primary provider in the Main ED. 68 yo male here for eval of right lower back pain x2 days. taking tylenol at home with minimal relief. back pain extends from right lower back into right thigh, worse with movement/ walking. denies injury or trauma. denies dysuria, hematuria, saddle anesthesia, bowel/bladder incontinence or retention, numbness/tingling/weakness of the LEs. No midline spinous tenderness or step- off deformity. No paraspinal muscle tenderness to palpation. No CVAT bilaterally. Plan: xrs, UA Reevaluation(s) Reevaluation #1: Due to previous kidney function, patient can not have Toradol injection therefore patient medicated with Valium. He had minimal relief with Valium, will medicate with morphine Time: 15:32 Medications Administered Discontinued Medications Generic Name Dose Route Start Last Admin Trade Name Freq PRN Reason Stop Dose Admin Diazepam 2 mg 10/10/23 14:37 10/10/23 14:46 Diazepam 2 Mg Tablet PO 10/10/23 14:38 2 mg ONCE ONE Administration Morphine Sulfate 15 mg 10/10/23 15:26 10/10/23 15:35 Morphine Sulfate Immed Release 15 Mg Tablet PO 10/10/23 15:27 15 mg ONCE ONE Administration Medical Decision Making Medical Decision Making MDM Narrative: This is a 68-year-old male who presents emergency department with complaints of back pain x2 days. Patient is ambulatory in the department. He has tenderness palpation along the right lower spine, he has positive straight leg raise on the right. This patient presents with back pain most consistent with lumbar radiculopathy. Differential diagnoses includes lumbago versus musculoskeletal spasm / strain versus sciatica.No back pain red flags on history or physical. Presentation not consistent with malignancy (lack of history of malignancy, lack of B symptoms), fracture (no trauma, no bony tenderness to palpation), cauda equina (no bowel or urinary incontinence/retention, no saddle anesthesia, no distal weakness), pyelonephritis (afebrile, no CVAT, no urinary symptoms). X- rays were obtained, no acute bony abnormality seen however there are degenerative disc disease. Discussed findings with patient. He is medicated with Valium and morphine. I was hoping to medicate with an anti-inflammatory however patient has kidney disease therefore this is contraindicated. Patient wishes to be discharged and take medications at home for pain management. Discussed return precautions. He understands and agrees with plan. Patient stable for discharge. Differential Diagnosis Differential Diagnoses: The differential diagnosis associated with the presentation includes See above Admission/Observation Consideration of admission/observation: Escalation of care including admission/observation considered Escalation of care including admission/observation considered however given workup today not warranted at this time. Lab Data MDM Lab Attestation statement: I reviewed the patient's lab results. Urine does not appear to be infected. Labs: Lab Results 10/10/23 Range/Units 16:09 Urine Color Yellow Urine Appearance Clear Urine pH 5.5 (5.0-9.0) Ur Specific [place] 1.025 (1.005-1.025) Urine Protein 30 (1+) H (Neg-Trace) mg/dL Urine Glucose (UA) >=1000 H (Negative) mg/dL Urine Ketones Negative (Negative) mg/dL Urine Blood Negative (Negative) Urine Nitrite Negative (Negative) Ur Leukocyte Esterase Negative (Negative) Urine RBC 0-2 (0-2) /HPF Urine WBC 0-5 (0-5) /HPF Ur Squamous Epith Cells 0-2 (0-2) /HPF Urine Bacteria None Seen (None Seen) Hyaline Casts 0-2 (0-2) /LPF Radiology Impression Discussion of test interpretation with radiology: I have reviewed the radiologist's reading. Radiologist Impression: EXAMINATION: XR LUMBAR SPINE CLINICAL INFORMATION: Reason for Exam right lumbar pain COMPARISON: Prior study 09/27/2012 TECHNIQUE: Frontal lateral and coned-down L5-S1 frontal lateral, total of 3 views FINDINGS: Five [id number] lumbar vertebrae were identified maintaining normal height and alignments. Narrowing of intervertebral disc spaces suggest underlying degenerative disc disease. Paravertebral soft tissues are unremarkable. There are radiolucencies, most likely superimposed bowel gas.. No radiographic evidence of osteolytic or osteoblastic lesions. XR/XR lumbar spine 2-3V IMPRESSION: Degenerative disc disease, no fracture. Dictated By: Adina Aguilar MD Discharge Plan Discharge Clinical Impression: Lumbar radiculopathy, right Patient Disposition: Home, Self-Care Instructions: Lumbar Radiculopathy (ED), Back Pain (ED), Lower Back Exercises (ED) Additional Instructions: You were seen in the emergency department due to back pain Your x-ray of your back shows degenerative changes. Please take prescribed medication as directed. Please be advised that morphine can cause drowsiness, do not drink alcohol or drive while taking this medication. Take Tylenol as needed for mild pain. Morphine for severe pain. Apply Lidoderm patches as needed. Heat or ice can also help with your symptoms. If any new or worsening symptoms occur including but not limited to worsening pain, chest pain, shortness breast, please return for re-evaluation. Prescriptions: New acetaminophen [Tylenol Extra Strength] 500 mg tablet 500 mg PO QID PRN (Reason: pain) Qty: 30 0RF cyclobenzaprine 10 mg tablet 10 mg PO TID PRN (Reason: muscle spasm) Qty: 10 0RF oxycodone 5 mg capsule 5 mg PO Q6H PRN (Reason: pain) Qty: 12 0RF Rx Instructions: Partial Fill upon patient request. lidocaine [Lidoderm] 5 % adhesive patch,medicated 1 patch topical DAILY Qty: 30 0RF Rx Instructions: leave on most painful area for up to 12 hrs No Action cyanocobalamin (vitamin B-12) 1,000 mcg tablet, sublingual 1,000 mcg sublingual DAILY Qty: 90 3RF metoprolol succinate 100 mg tablet extended release 24 hr 100 mg PO DAILY Qty: 90 3RF Trulicity 3 mg/0.5 mL pen injector 3 mg subcut QWEEK Qty: 2 3RF atorvastatin 20 mg tablet 20 mg PO QPM Qty: 90 3RF glipizide 2.5 mg tablet extended release 24hr 2.5 mg PO DAILY Qty: 90 2RF diclofenac sodium [Voltaren Arthritis Pain] 1 % gel 4 g topical QID Qty: 100 1RF Rx Instructions: apply to single knee, ankle, foot; for foot includes sole/toes/top of foot omeprazole 20 mg capsule,delayed release(DR/EC) 20 mg PO DAILY Qty: 30 5RF lidocaine 5 % adhesive patch,medicated 1 patch topical DAILY PRN (Reason: pain) Qty: 15 0RF Rx Instructions: leave on most painful area for up to 12 hrs (DME) pen needle, diabetic [BD Ultra-Fine Mini Pen Needle] 31 gauge x 3/16 needle See Rx Instructions .ROUTE .MEDSUPPLY Qty: 100 3RF Rx Instructions: As directed enalapril maleate 20 mg tablet 20 mg PO DAILY Jardiance 10 mg tablet 10 mg PO DAILY 30 Days Qty: 30 6RF Interventions: ED Discharge Assessment Last Done: 10/10/23 16:12 Discharge Date/Time: 10/10/23 16:12 Print Language: Tunisian
--- OUTSIDE RECORDS SUMMARY | 2023-10-10 13:45 | XMS_ITS | Patient Health Record ---
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 Name Role Phone Concepción Oh MD Primary Care Provider Diego Aguayo Jr Unavailable ALLERGIES Allergen (clinical drug ingredient) Drug/Non Drug Allergy documented on EMR Reaction Allergy Type Onset Date Status tamsulosin Tamsulosin Unknown Drug Allergy Activ e pioglitazone Pioglitazone Unknown Drug Allergy A ctive ciprofloxacin Ciprofloxacin Unknown Drug Allergy Active empagliflozin Jardiance Unknown Drug Allergy Act stacia RESULTS Component Value Reference Range Notes Glucose, Whole Blood Reviewed date:12/23/2022 04:12:50 PM Interpretation: Performing Lab:[facility], [address] [place] [id number] Notes/Report: Glucose, Whole Blood 153 60-115 mg/dL METER # : [id number] Pathology Reviewed date:12/26/2022 09:03:01 AM Interpretation: Performing Lab:[facility], [address] [place] [id number] Notes/Report: REASON FOR REFERRAL No Information MEDICATIONS Medication SIG (Take, Route, Frequency, Duration) Notes Start Date End Date Status Dulaglutide Active Fexofenadine HCl Act stacia Cyanocobalamin ER Ac tive Prevalite Active hydrOXYzine HCl Acti ve Ketoconazole Active Omeprazole 20 MG 1 capsule Orally Onc e a day Active MiraLax (colon prep) 17 GM/SCOOP mixed with Gatorade or Crystal Light Orally begin at 5:00 p.m. the day before the procedure for 1 day 11/06/2022 Active glipiZIDE ER Active Gas Relief Active amLODIPine Besylate 2.5 MG 1 tablet Oral ly Once a day for 30 day(s) Active Dulcolax 5 MG 1 tablet as needed Orally Once a day for 30 day(s) Active Loperamide HCl Activ e Enalapril Maleate 20 MG 1 tablet Orally Once a day Active Metoprolol Succinate Active Atorvastatin Calcium 20 MG 1 tablet Oral ly Once a day Active MiraLax (colon prep) 8.3 ounce ((238) grams mixed with Gatorade or Crystal Light orally begin at 5:00 p.m. the day before the procedure for 1 day 11/07/2022 Active Dulcolax (colon prep) 5 MG take at 3:00 p.m and 7:00p.m. Orally two tablets twice a day for one day for 1 day 11/07/2022 Active Cholestyramine 4 GM 1 packet mixed with water or non-carbonated drink Orally Once a day for 30 day(s) 11/06/2022 Active IMMUNIZATIONS Vaccine Route Administration Date Status Comme nts Influenza Unknown 02/26/2017 Administered SOCIAL HISTORY Tobacco Use: Social History Observation Description Date Details (start date - stop date) Never Smoker NA - NA Sex Assigned At : Social History Observation Description Sex Assigned At Unknown Tobacco Use/Smoking Question Answer Notes Patient is a nonsmoker Alcohol Screen Question Answer Notes Did you have a drink containing alcohol in the p ast year? No Points 0 Interpretation Negative PROBLEMS Problem Type ICD Code Onset Dates Problem Status W/U Status Risk SNOMED Code Notes Problem Acute pancreatitis, unspecified complication status, unspecified pancreatitis type (K85.90) Active confirmed 119645553 Problem Change in bowel movement (R19.8) Active confirmed 49717682 VITAL SIGNS Temperature 97.7 degrees Fahrenheit 11/06/2022 Blood pressure diastolic 00 mm Hg 11/06/2022 Height 69 in 11/06/2022 Blood pressure systolic 000 mm Hg 11/06/2022 Weight 205 lbs 11/06/2022 BMI 30.27 kg/m2 11/06/2022 Encounters Encounter Location Date Provider Diagnosis [facility] [address]patient [address] [place], [place] [phone] 12/23/2022 Diego Almeida Jr Change in bowel habit R19.4 and Diarrhea R19.7 [facility] [address] [place] [address] 11/06/2022 Diego Almeida Jr Change in bowel movement R19.8 and Diarrhea, unspecified type R19.7 [facility] [address] [place] [address] 11/06/2022 Diego Almeida Jr [facility] [address] [place] [phone] 12/26/2022 Diego Almeida Jr ASSESSMENTS Encounter Date Diagnosis Assessment Notes Treatment Notes Treatment Clinical Notes 12/23/2022 Diarrhea (ICD-10 - R19.7) 12/23/2022 Change in bowel habit (ICD-10 - R19.4) 11/06/2022 Diarrhea, unspecified type (ICD-10 - R19.7) 11/06/2022 Change in bowel movement (ICD-10 - R19.8) Colonoscopy material was printed PLAN OF TREATMENT Future Test Test Name Order Date COLONOSCOPY 11/06/2022 Insurance Providers Payer Name Payer Address Payer Phone Subscriber Number Group Number Insured Name Patient Relationship to Insured Coverage Start Date [facility]age End Date [facility] [place] [address] Attn Claims [place] [id number] ZAKI OLIVEROS Self - patient is the insured MEDICAID OF [employer] [facility] [address] [place] [address] [id number] ZAKI OLIVEROS Self - patient is the insured MEDICAL (GENERAL) HISTORY Medical History History ICD Code Colonoscopy 2016, normal, ten-year follo wup diabetes mellitus with neuropathy hypertension Bladder cancer GERD lumbar spondylosis Hyperlipidemia Elevated BMI Prostate cancer Surgical History Surgery Date(Month/Year) hernia repair 2011 cholecystectomy appendectomy prostate surgery due to cancer 2017
[2023-10-10] MEDS: diazePAM 2 MG TABLET PO (14:46)
[2023-10-10 15:32] VITALS: BP 187/79; PULSE 16; RESP 16; TEMP 36.6; O2SAT 99
[2023-10-10] MEDS: Morphine Sulfate Immed Release 15 MG TABLET PO (15:35)
[2023-10-10 16:12] VITALS: BP 187/79; PULSE 16; RESP 16; TEMP 36.6; O2SAT 99
[2023-10-10 16:16] LABS: Appearance Urine Clear; Color Urine Yellow; Glucose Urine UA >=1000 mg/dL (Negative); Leukocyte Esterase Urine Negative (Negative); Nitrite Urine Negative (Negative); PH 5.5 (5.0-9.0); Specific Gravity - Urine 1.025 (1.005-1.025); UMIC TRIGGER UACC YES; Urine Blood Negative (Negative); Urine Ketones Negative (Negative); Urine Protein 30 (1+) mg/dL (Neg-Trace)
[2023-10-10 16:18] LABS: Bacteria Urine None Seen (None Seen); Hyaline Casts Urine 0-2 /LPF (0-2); RBC Urine 0-2 /HPF (0-2); Squamous Epithelial Cell Urine 0-2 /HPF (0-2); WBC Urine 0-5 /HPF (0-5)
== END 2023-10-10 16:12 | disposition home or self-care (01) ==
PROVIDERS: Physician Assistant Medical; Emergency Provider Emergency Medicine; PCP Internal Medicine
DX: M54.16 Radiculopathy, lumbar region (principal); M54.50 Low back pain, unspecified; Z79.899 Other long term (current) drug therapy
CPT/HCPCS: 72100; 81001; 99283; 99284

== ENCOUNTER 2023-10-16 09:46 | Outpatient (AMB) | payer OTHER, SELFPAY ==
[2023-10-16 10:41] VITALS: BP 142/76; PULSE 74; O2SAT 96; BMI 29.3
--- NOTE | 2023-10-16 10:41 | A.OFFPC_ITS ---
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 Tobacco use date assessed: 08/12/23 Fall risk assessment: No Falls in past year Last assessed Fall Risk: 10/16/23 Dental Screening Dental Screen Date: 08/12/23 HPI [facility] 10/09 pain left leg and hip and left foot numb HPI Details 68-year-old overweight male with control led diabetes mellitus GERD hypercholesterolemia hypertension chronic kidney disease patient also has urinary bladder cancer. Patient's colonoscopy is December 2022 review of the notes ER visit 10/10/2023 for low back pain for couple of days denies any trauma x-ray done showing degenerative disc disease. Prescribed oxycodone as needed. Patient also follows up with Nephrology seen in September 15 chronic kidney disease stage 3 diabetic renal disease with FSGS. Advised to increase Jardiance to 10 mg continuing with enalapril PFSH Medical History Prostate CA Chronic diarrhea Overweight (BMI 25.0-29.9) Diabetic neuropathy Hypertension Urinary bladder cancer Obesity (BMI 30-39.9) Hypercholesterolemia GERD (gastroesophageal reflux disease) Lumbar spondylosis Type 2 diabetes mellitus with hyperglycemia Surgical History Hx of hernia repair History of prostate surgery History of colonoscopy History of cholecystectomy History of appendectomy Family History Father Diabetes Myocardial infarct Mother No problems noted. Maternal Grandmother Stomach cancer Maternal Uncle Cancer Social History Housing: Apartment Alcohol intake: never Patient Tobacco Use Status: Never used Tobacco e-Cigarette/Vaping Use: Never Used Second Hand Smoke Exposure: No service: No Current occupational status: disabled Cognitive needs: No Hearing needs: No Vision needs: Yes Questionnaire Thrive Questionnaire Date Thrive assessed: 08/12/23 MADELINE-7 AMB Questionnaire MADELINE-7 Date MADELINE - 7 assessed: 08/12/23 Source: Developed by Drs. Yosi Melchor, Radha Laura, Shivam Mcnally and colleagues, with an educational jamar from [employer]. Physical exam (Primary Care) Vital Signs: Last Vital Signs Pulse 74 10/16/23 10:41 BP 142/76 H 10/16/23 10:41 Pulse Ox 96 10/16/23 10:41 Oxygen Delivery Method Room Air 10/16/23 10:41 BMI result Body Mass Index 29.3 Tobacco/Smoking Status: Tobacco use Status Tobacco use date assessed 08/12/23 10/16/23 10:42 Patient Tobacco Use Status Never used Tobacco 10/16/23 10:42 e-Cigarette/Vaping Use Never Used 10/16/23 10:42 Thrive Assessment: Date of Thrive Assessment Date Thrive assessed 08/12/23 10/16/23 10:42 Const General: alert; No acute distress Eyes Conjunctivae: conjunctivae normal Resp Auscultation: clear to auscultation bilaterally Cardio Rate: regular rate Rhythm: regular rhythm GI Inspection: Yes normal to inspection Extrem General: Yes normal to inspection and No edema Assessment and Plan Assessment & Plan (1) Type 2 diabetes mellitus with hyperglycemia: Code(s): E11.65 - Type 2 diabetes mellitus with hyperglycemia Qualifiers: Diabetes mellitus correction insulin use: without correction use Qualified Code(s): E11.65 - Type 2 diabetes mellitus with hyperglycemia Plan: Decrease the amount of carbohydrate intake, pasta, bread, rice and potatoes are all sugar and that is aside from all the sweet stuff, remember that fruits are good but they are Sweet also. Hemoglobin A1c goal of less than 7.0 on Trulicity has been started on Jardiance also by Nephrology on glipizide 2.5 mg once a day (2) GERD (gastroesophageal reflux disease): Code(s): K21.9 - Gastro-esophageal reflux disease without esophagitis Qualifiers: Esophagitis presence: without esophagitis Qualified Code(s): K21.9 - Gastro-esophageal reflux disease without esophagitis Plan: Avoid the foods that causes that usually spicy foods, tomato products, juices, coffee, soda and foods that your sensitive to. After eating do not lie down, allow 3-4 hours before in lie down. And keep the head of bed above 30 degrees to avoid the acid from going up. (3) Hypercholesterolemia: Code(s): E78.00 - Pure hypercholesterolemia, unspecified Plan: Avoid fried foods, chicken skin, eggs, butter margarine, pastries and meat. Be it pork or beef they have a lot of cholesterol patient's need blood work and is on atorvastatin 20 mg at bedtime (4) Hypertension: Code(s): I10 - Essential (primary) hypertension Qualifiers: Hypertension type: essential hypertension Qualified Code(s): I10 - Essential (primary) hypertension Plan: Continue with blood pressure medication. Decrease salt intake and exercise follows up with Nephrology has been placed on Jardiance recently on enalapril 20 mg once a day and metoprolol 100 mg once a day (5) Overweight (BMI 25.0-29.9): Code(s): E66.3 - Overweight Plan: Diet and exercise (6) CKD (chronic kidney disease) stage 3, GFR 30-59 ml/min: Code(s): N18.30 - Chronic kidney disease, stage 3 unspecified Qualifiers: Chronic kidney disease stage 3 subtype: stage 3a (GFR 45-59) Qualified Code(s): N18.31 - Chronic kidney disease, stage 3a Plan: Follows up with Nephrology diabetic kidney disease keep well hydrated avoid NSAIDs. Lengthy explanation to the patient that the patient has chronic kidney disease discussed about the numbers as well as the glomerular filtration rate. (7) Lumbar spondylosis: Code(s): M47.816 - Spondylosis without myelopathy or radiculopathy, lumbar region Plan: Patient is advised to keep active and continue to lose the weight (8) Trochanteric bursitis, right hip: Code(s): M70.61 - Trochanteric bursitis, right hip Plan: referral to ortho done - decline Physical therapy (9) Allergic contact dermatitis: Code(s): L23.9 - Allergic contact dermatitis, unspecified cause Plan: steroid cream sent in Orders: Referrals Orthopedics Referral M70.61 - Trochanteric bursitis, right hip Medications: New triamcinolone acetonide 0.5% 1 appl topical BID 45 grams 0RF L23.9 - Allergic contact dermatitis, unspecified cause Coding Level of Care Code Est Pt Level 4 (85471) Diagnoses Type 2 diabetes mellitus with hyperglycemia, without long-term current use of insulin E11.65 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
== END 2023-10-16 11:06 | disposition home or self-care (01) ==
PROVIDERS: PCP Internal Medicine; Visit Provider Internal Medicine
DX: I12.9 Hypertensive chronic kidney disease with stage 1 through stage 4 chronic kidney disease, or unspecified chronic kidney disease (principal); E11.65 Type 2 diabetes mellitus with hyperglycemia; K21.9 Gastro-esophageal reflux disease without esophagitis; N18.31 Chronic kidney disease, stage 3a; E78.00 Pure hypercholesterolemia, unspecified; E66.3 Overweight; M47.816 Spondylosis without myelopathy or radiculopathy, lumbar region; M70.61 Trochanteric bursitis, right hip; L23.9 Allergic contact dermatitis, unspecified cause
CPT/HCPCS: 99214

== ENCOUNTER 2023-10-25 07:20 | Emergency (ER) | payer OTHER, SELFPAY ==
--- NOTE | ~2023-10-25 | US_ITS ---
EXAMINATION: US VENOUS ULTRASOUND WITH DOPPLER LOWER EXTREMITY, RIGHT CLINICAL INFORMATION: Pain and cramping in the left calf COMPARISON: None available. TECHNIQUE: Ultrasound of the deep veins is performed from the hip to the calf with compression sonography and color and pulse Doppler assessment. Spectral analysis with color-flow imaging is performed. FINDINGS: There is normal venous compression and respiratory variation and augmented flow. The visualized common femoral vein, superficial femoral vein, profunda femoral vein, popliteal vein, and the trifurcation region shows no evidence of deep venous thrombosis. There is no significant popliteal fossa cyst. There is a prominent right inguinal lymph node. US/US venous duplex LE RT IMPRESSION: No DVT demonstrated in the right lower extremity.
[2023-10-25 07:22] VITALS: BP 192/67; PULSE 66; RESP 16; TEMP 36.7; O2SAT 99; BMI 28.9
--- NOTE | 2023-10-25 07:24 | ED_ITS ---
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 Has a hard time walking cannot get comfortable at night. MD Complaint: extremity pain Onset (ago): week(s) (2) Pain Consistency: constant Location: right and lower extremity Quality: other (throbbing) Radiation: none Relieving factors: immobilization Exacerbating factors: weight bearing, walking and palpation Associated symptoms: denies other symptoms Related Data Home Medications ?Medication ?Instructions ?Recorded ?Confirmed enalapril maleate 20 mg tablet 20 mg PO DAILY 09/16/23 Previous Rx's ?Medication ?Instructions ?Recorded pen needle, diabetic 31 gauge x #100 ea 03/22/20/ (BD Ultra-Fine Mini Pen Needle) cyanocobalamin (vitamin B-12) 1,000 mcg sublingual DAILY #90 tabs 05/04/23 1,000 mcg sublingual tablet metoprolol succinate 100 mg 100 mg PO DAILY #90 tabs 07/07/23 tablet,extended release 24 hr dulaglutide 3 mg/0.5 mL 3 mg (0.5 mL) subcut QWEEK #2 mL 07/15/23 subcutaneous pen injector (Trulicity) lidocaine 5 % topical patch 1 patch topical DAILY PRN pain #15 07/18/23 ea atorvastatin 20 mg tablet 20 mg PO QPM #90 tabs 08/12/23 glipizide 2.5 mg tablet, extended 2.5 mg PO DAILY #90 tabs 08/24/23 release 24 hr empagliflozin 10 mg tablet 10 mg PO DAILY 30 days #30 tabs 09/16/23 (Jardiance) diclofenac sodium 1 % topical gel 4 g topical QID #100 grams 09/22/23 (Voltaren Arthritis Pain) omeprazole 20 mg capsule,delayed 20 mg PO DAILY #30 caps 10/05/23 release acetaminophen 500 mg tablet 500 mg PO QID PRN pain #30 tabs 10/10/23 (Tylenol Extra Strength) cyclobenzaprine 10 mg tablet 10 mg PO TID PRN muscle spasm #10 10/10/23 tabs lidocaine 5 % topical patch 1 patch topical DAILY #30 ea 10/10/23 (Lidoderm) oxycodone 5 mg capsule 5 mg PO Q6H PRN pain #12 caps 10/10/23 triamcinolone acetonide 0.5 % 1 appl topical BID #45 grams 10/16/23 topical cream gabapentin 100 mg capsule 100 mg PO BEDTIME #30 caps 10/25/23 Allergies Allergy/AdvReac Type Severity Reaction Status Date / Time ciprofloxacin [CIPROFLOXACIN] Allergy Unknown RASH, Verified 10/25/23 07:25 anaphylaxis pioglitazone Allergy Unknown Swelling Verified 10/25/23 07:25 tamsulosin Allergy Unknown rash? Verified 10/25/23 07:25 Review of Systems 2 Review of Systems: Constitutional : No Fever, No Chills ENT/Mouth : No Ear Pain, No Hoarseness, No sore throat Eyes: No Eye Pain, No Swelling, No Redness, No Foreign Body Cardiovascular : No Chest Pain, No SOB Respiratory : No Cough, No Dyspnea Gastrointestinal : No Nausea, No Vomiting, No Diarrhea, No abdominal Pain Genitourinary : No Dysuria, No Hematuria Musculoskeletal : positive joint pain, No Myalgias, No Joint Swelling Skin : No Skin lacerations, No rash Neuro : No Weakness, No Numbness, No Loss of Consciousness, No Dizziness, No Headache, pos parasthesias Psych : No Anxiety/Panic, No Depression All other systems reviewed and are negative [facility] Past Medical History Attestation statement: The following information was validated with the patient. Source: old records reviewed Medical History Prostate CA Chronic diarrhea Overweight (BMI 25.0-29.9) Diabetic neuropathy Hypertension Urinary bladder cancer Obesity (BMI 30-39.9) Hypercholesterolemia GERD (gastroesophageal reflux disease) Lumbar spondylosis Type 2 diabetes mellitus with hyperglycemia Surgical History Hx of hernia repair History of prostate surgery History of colonoscopy History of cholecystectomy History of appendectomy Family History Family History Father Diabetes Myocardial infarct Mother No problems noted. Maternal Grandmother Stomach cancer Maternal Uncle Cancer Social History Social History Housing: Apartment Alcohol intake: never Patient Tobacco Use Status: Never used Tobacco e-Cigarette/Vaping Use: Never Used Second Hand Smoke Exposure: No Advance Directives: No Advance Directives Information Provided: No service: No Current occupational status: disabled Cognitive needs: No Hearing needs: No Vision needs: Yes Physical Exam 2 Vital Signs: Vital Signs: Last Vital Signs Temp 98.0 F 10/25/23 07:22 Pulse 66 10/25/23 07:22 Resp 16 10/25/23 07:22 BP 192/67 H 10/25/23 07:22 Pulse Ox 99 10/25/23 07:22 O2 Del Method Room Air 10/25/23 07:22 BMI result Body Mass Index 28.9 Appearance: Alert. Oriented X3. No acute distress. Eyes: Pupils equal, round and reactive to light. ENT: Pharynx normal. Neck: Normal inspection. Neck supple. CVS: Normal heart rate and rhythm. Pulses normal. Respiratory: No respiratory distress. Breath sounds normal. Abdomen: Soft and nontender. Skin: Skin warm and dry. Normal skin color. Normal skin turgor. Extremities: No lower extremity edema. R leg NV intact can feel my hands no loss of sensation, 2+ DP/PT pulses, BCR in all digits, compartments are soft and compressible, has pain in R calf when touched Neuro: Oriented X 3. No motor deficit. No sensory deficit. Medications Administered Discontinued Medications Generic Name Dose Route Start Last Admin Trade Name Binta PRN Reason Stop Dose Admin Oxycodone HCl 10 mg 10/25/23 07:49 10/25/23 08:44 Oxycodone Hcl Immed Release 5 Mg Tablet PO 10/25/23 07:50 10 mg ONCE ONE Administration Medical Decision Making Medical Decision Making MDM Narrative: 68 yo male with PMH of anemia, CKD, BPH, HTN, HLD, bladder cancer, GERD, DM2, back pain here with c/o 2 weeks of R leg cramp no signs of infection, bounding DP/PT pulses doubt ischemia, NV intact has completely intact sensation at this time. Suspect possible radicular issue from back but no other red flags and is followed up outpatient - has injection coming up, DVT study ordered given calf pain. Differential Diagnosis Differential Diagnoses: The differential diagnosis associated with the presentation includes strain, cramps, radicular pain is due for injections soon in his back, DVT Admission/Observation Consideration of admission/observation: Escalation of care including admission/observation considered work up negative 2 weeks of pain stable for DC Lab Data MDM Lab Attestation statement: I reviewed the patient's lab results. 10/25/23 07:35 10/25/23 07:35 Labs: Lab Results 10/25/23 Range/Units 07:35 WBC 7.0 (4.8-10.8) X10*3/uL RBC 4.39 L (4.60-5.80) X10*6/uL Hgb 12.7 L (14.0-18.0) g/dl Hct 38.3 L (42.0-52.0) % MCV 87.2 (80.0-98.0) fL MCH 28.9 (27.0-33.0) pg MCHC 33.2 (31.0-36.0) g/dl RDW 13.6 (11.0-16.0) % Plt Count 183 (160-400) X10*3/uL MPV 12.0 (9.4-12.4) fL Absolute Nucleated RBC 0.000 (0.0-0.012) X10*3/uL Nucleated RBC % (auto) 0.0 (0.0-0.2) /100WBC Sodium 138 (135-145) mmol/L Potassium 4.0 (3.3-5.1) mmol/L Chloride 108 (96-108) mmol/L Carbon Dioxide 21 L (22-29) mmol/L Anion Gap 13 (12-20) BUN 32 H (9-16) mg/dL Creatinine 2.05 H (0.5-1.4) mg/dL Estim Creat Clear Calc 38.5 Estimated GFR 33 Random Glucose 181 H (60-115) mg/dL Calcium 8.7 D (8.4-10.2) mg/dL Magnesium 2.1 (1.6-2.6) mg/dL Independent Interpretation I performed an independent interpretation of an: Ultrasound (no DVT) Radiology Impression Discussion of test interpretation with radiology: I have reviewed the radiologist's reading. Independent Historian Clinical information obtained from an independent historian. History obtained from or confirmed by: Spouse External Record Review External record reviewed: Inpatient record Prescription Management I considered prescription management with: Pain Medication and Other Discharge Plan Discharge Clinical Impression: Acute leg pain Qualifiers: Laterality: right Qualified Code(s): M79.604 - Pain in right leg Patient Disposition: Home, Self-Care Instructions: Leg Pain (ED) Additional Instructions: labs at baseline US no blood clot follow up with specialist for injection return for worsening symptoms, pain, fevers hold medication if you feel confused or dizzy. take at night for sleep and pain Prescriptions: New gabapentin 100 mg capsule 100 mg PO BEDTIME Qty: 30 0RF No Action cyanocobalamin (vitamin B-12) 1,000 mcg tablet, sublingual 1,000 mcg sublingual DAILY Qty: 90 3RF metoprolol succinate 100 mg tablet extended release 24 hr 100 mg PO DAILY Qty: 90 3RF Trulicity 3 mg/0.5 mL pen injector 3 mg subcut QWEEK Qty: 2 3RF atorvastatin 20 mg tablet 20 mg PO QPM Qty: 90 3RF glipizide 2.5 mg tablet extended release 24hr 2.5 mg PO DAILY Qty: 90 2RF diclofenac sodium [Voltaren Arthritis Pain] 1 % gel 4 g topical QID Qty: 100 1RF Rx Instructions: apply to single knee, ankle, foot; for foot includes sole/toes/top of foot omeprazole 20 mg capsule,delayed release(DR/EC) 20 mg PO DAILY Qty: 30 5RF acetaminophen [Tylenol Extra Strength] 500 mg tablet 500 mg PO QID PRN (Reason: pain) Qty: 30 0RF cyclobenzaprine 10 mg tablet 10 mg PO TID PRN (Reason: muscle spasm) Qty: 10 0RF oxycodone 5 mg capsule 5 mg PO Q6H PRN (Reason: pain) Qty: 12 0RF Rx Instructions: Partial Fill upon patient request. lidocaine [Lidoderm] 5 % adhesive patch,medicated 1 patch topical DAILY Qty: 30 0RF Rx Instructions: leave on most painful area for up to 12 hrs lidocaine 5 % adhesive patch,medicated 1 patch topical DAILY PRN (Reason: pain) Qty: 15 0RF Rx Instructions: leave on most painful area for up to 12 hrs (DME) pen needle, diabetic [BD Ultra-Fine Mini Pen Needle] 31 gauge x 3/16 needle See Rx Instructions .ROUTE .MEDSUPPLY Qty: 100 3RF Rx Instructions: As directed triamcinolone acetonide 0.5 % cream 1 appl topical BID Qty: 45 0RF enalapril maleate 20 mg tablet 20 mg PO DAILY Jardiance 10 mg tablet 10 mg PO DAILY 30 Days Qty: 30 6RF Print Language: Greenlandic
--- OUTSIDE RECORDS SUMMARY | 2023-10-25 07:36 | XMS_ITS | Patient Health Record ---
Author Organization [facility] Address [address] [place] [address] Care Team Providers Care Inspector Fibrous Wallboard Name Role Phone Concepción Oh MD Primary [...] Blood Reviewed date:12/23/2022 04:12:50 PM Interpretation: Performing Lab:[facility], [address] [place] [phone] Notes/Report: Glucose, Whole Blood 153 60-115 mg/dL METER # : [id number] Pathology Reviewed date:12/26/2022 09:03:01 AM Interpretation: Performing Lab:[facility], [address] [place] [id number] Notes/Report: REASON FOR REFERRAL No Information MEDICATIONS [...] status, unspecified pancreatitis type (K85.90) Active confirmed [id number] Problem Change in bowel movement (R19.8) Active confirmed [id number] VITAL SIGNS Temperature 97.7 degrees Fahrenheit 11/06/2022 Blood pressure diastolic 00 mm Hg 11/06/2022 Height 69 in 11/06/2022 Blood pressure systolic 000 mm Hg 11/06/2022 Weight 205 lbs 11/06/2022 BMI 30.27 kg/m2 11/06/2022 Encounters Encounter Location Date Provider Diagnosis [facility] Outpatient [address], [place] [id number] 12/23/2022 Diego Almeida Jr Change in bowel habit R19.4 and Diarrhea R19.7 [facility] [address] [place] [address] 11/06/2022 Diego Almeida Jr Change in bowel movement R19.8 and Diarrhea, unspecified type R19.7 [facility] [address] [place] [address] 11/06/2022 Diego Almeida Jr [facility] [address] [place] [phone] 12/26/2022 Diego Almeida Jr ASSESSMENTS Encounter Date [...] Insured Coverage Start Date [facility]age End Date [facility] [place] [facility] [address] Attn Claims HENRY Perry [id number] ZAKI OLIVEROS Self - patient is the insured [email or web address] [address] [place] [address] [id number] ZAKI OLIVEROS Self - patient is the insured MEDICAL (GENERAL) HISTORY Medical History History ICD Code Colonoscopy 2016, normal, ten-year follo wup diabetes mellitus with neuropathy hypertension Bladder cancer GERD lumbar spondylosis Hyperlipidemia Elevated BMI Prostate cancer Surgical History Surgery Date(Month/Year) hernia repair 2011 cholecystectomy appendectomy prostate surgery due to cancer 2017
[2023-10-25 07:43] LABS: Hematocrit 38.3 % (42.0-52.0); Hemoglobin 12.7 g/dl (14.0-18.0); Mean Corpuscular HGB Conc 33.2 g/dl (31.0-36.0); Mean Corpuscular Hemoglobin 28.9 pg (27.0-33.0); Mean Corpuscular Volume 87.2 fL (80.0-98.0); Platelet Count 183 X10*3/uL (160-400); Red Blood Count 4.39 X10*6/uL (4.60-5.80); Red Cell Distribution Width 13.6 % (11.0-16.0)
[2023-10-25 08:25] LABS: Anion Gap 13 (12-20); Blood Urea Nitrogen 32 mg/dL (9-16); Calcium 8.7 mg/dL (8.4-10.2); Carbon Dioxide 21 mmol/L (22-29); Chloride 108 mmol/L (96-108); Creatinine Clr Calc Pharmacy 38.5; Estimated Glomerular Filt Rate 33; Glucose Random 181 mg/dL (60-115); Magnesium 2.1 mg/dL (1.6-2.6); Sodium 138 mmol/L (135-145)
[2023-10-25] MEDS: oxyCODONE HCl Immed Release 5 MG TABLET 10 MG PO (08:44)
== END 2023-10-25 09:22 | disposition home or self-care (01) ==
PROVIDERS: Emergency Provider Emergency Medicine; PCP Internal Medicine
DX: M79.604 Pain in right leg (principal); R60.0 Localized edema; Z79.899 Other long term (current) drug therapy
CPT/HCPCS: 36415; 80048; 83735; 85027; 93971; 99282; 99283

== ENCOUNTER 2023-11-18 09:43 | Outpatient (REF) | payer OTHER, SELFPAY ==
--- NOTE | ~2023-11-18 | XR_ITS ---
EXAMINATION: XR HIP, RIGHT, WITH AP PELVIS CLINICAL INFORMATION: Right hip pain. COMPARISON: CT abdomen and pelvis dated 09/09/2017. TECHNIQUE: AP and frog-leg lateral views of the right hip are submitted, together with a frontal view of the pelvis. FINDINGS: No fracture. Alignment is anatomic. The bilateral acetabular joint spaces are symmetric and well-maintained. The femoral heads are smooth. The sacroiliac joints are symmetric and well-maintained. The pubic symphysis is intact. There are pelvic phleboliths and atherosclerotic calcifications. The soft tissues are unremarkable. XR/XR hip RT min 2V IMPRESSION: Unremarkable right hip and pelvis radiographs. Electronically signed by: Juan Luis Green MD 12/16/2023 12:46 PM EDT
== END 2023-11-18 09:44 | disposition home or self-care (01) ==
LOC: HO.HOSX 09:43
PROVIDERS: Visit Provider Physician Assistant
DX: M25.551 Pain in right hip (principal); M76.01 Gluteal tendinitis, right hip; M70.61 Trochanteric bursitis, right hip
CPT/HCPCS: 20610; 73502; 99202; J1010

== ENCOUNTER 2023-11-18 10:23 | Outpatient (AMB) | payer OTHER, SELFPAY ==
--- NOTE | 2023-11-18 11:00 | MHC.OFFVIS ---
Vital Signs 11/18/23 11:23 Height 5 ft 9 in Weight 196 lb BMI 28.9 Intake Visit Reasons: OFFICE ADMINISTRATION- RT hip bursitis Intake Note: Ney a 68 year old male who presents today with his spouse for a new patient evaluation of right hip buristis. Patient reports having a constant throbbing pain in his hip that radiates down the lateral aspect of leg as well as numbness and tingling sensation. Denies injury. No previous tx. He has tried and failed Tylenol, cyclobenzaprine, diclofenac topical cream, and gabapentin. He has completed a course of prednisone with little relief. 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 HPI HPI OFFICE ADMINISTRATION- RT hip bursitis: Details: 68-year-old male who presents to the office today with his spouse for an evaluation of right hip for 3 months. He states he has constant throbbing pain at the lateral aspect of his hip that is aggravated with walking as well as numbness and tingling. He denies any injury and has not had any treatment in the past. He finds no relief with Tylenol, cyclobenzaprine, diclofenac, topical cream and gabapentin. He finds mild relief with prednisone. [facility] Medical History Prostate CA Chronic diarrhea Overweight (BMI 25.0-29.9) Diabetic neuropathy Hypertension Urinary bladder cancer Obesity (BMI 30-39.9) Hypercholesterolemia GERD (gastroesophageal reflux disease) Lumbar spondylosis Type 2 diabetes mellitus with hyperglycemia Surgical History Hx of hernia repair History of prostate surgery History of colonoscopy History of cholecystectomy History of appendectomy Family History Father Diabetes Myocardial infarct Mother No problems noted. Maternal Grandmother Stomach cancer Maternal Uncle Cancer Social History Housing: Apartment Alcohol intake: never Patient Tobacco Use Status: Never used Tobacco e-Cigarette/Vaping Use: Never Used Second Hand Smoke Exposure: No service: No Current occupational status: disabled Cognitive needs: No Hearing needs: No Vision needs: Yes Review of Systems Const All systems reviewed & are unremarkable except as noted in HPI and below Physical Exam Vital Signs: BMI result Body Mass Index 28.9 Const General: cooperative, healthy appearing, comfortable, no acute distress, well developed and alert Orientation/consciousness: patient oriented x3 HEENT Head: Yes normal to inspection, Yes normocephalic and Yes atraumatic Eyes General: appearance normal, both eyes and all related structures Resp Effort & Inspection: normal respiratory effort and able to speak in complete sentences Cardio Rate: regular rate Peripheral pulses: Peripheral pulses 2+ throughout GI Palpation (GI): Soft to palpation Skin Lesions: no lesions Rashes: no rashes Neuro General: patient oriented x3 Extrem Other: Right hip: Normal to inspection. No pain with ROM of the hip. Pain along the greater trochanter. No pain with hip flexion or abduction. Positive tenderness along the SI joint, Positive SLR. NVI. Office Procedures Joint Injection/Aspiration Joint Injection/Aspiration Details: right trochanteric bursa Prep: site was prepped using aseptic technique, ethochloride spray was applied and injection warnings given Injected: 60 mg of, DepoMedrol, with 8 mL of and 1% plain lidocaine Procedure: The patient tolerated the procedure well and there was some relief with the local anesthesia Coding 08348 - Glenohumeral/Tronchanteric Bursa/Intraarticular Procedure code (CPT) selection complete Results Reviewed Results Reviewed: Xrays were obtained in the office today and personally reviewed by me of the right hip show mild to moderate oa Assessment & Plan Assessment & Plan (1) Trochanteric bursitis, right hip: Code(s): M70.61 - Trochanteric bursitis, right hip Category: Medical (2) Gluteal tendonitis of right buttock: Code(s): M76.01 - Gluteal tendinitis, right hip Category: Medical Plan We discussed options today, which include steroid injection. The patient did consent to move forward with the right hip injection, which was tolerated well. I recommended rest, ice, and elevation and OTC anti-inflammatories as needed for discomfort. She was also referred to physical therapy in the office today. We also discussed diabetes and the effect the steroid injection can have on their blood glucose levels; therefore, they will continue to monitor these very closely over the next 72 hours. If there are concerns, they should report to the ED immediately. Orders: Orders XR hip RT min 2V Today M25.551 - Pain in right hip PT Evaluation and Treatment Today M70.61 - Trochanteric bursitis, right hip, M76.01 - Gluteal tendinitis, right hip Patient Instructions: Scribed for Jennifer Resendiz PA-C, by Herb Velázquez medical authorization specialist, on 11/18/2023 at 11:00 AM EST.? I, Jennifer Resendiz PA-C, have personally reviewed and agree with the information entered by the scribe. Coding Level of Care Code New Pt Level 3 (82747) Diagnoses Trochanteric bursitis, right hip M70.61 Gluteal tendonitis of right buttock M76.01 CPT Codes Coding - Joint 7: 88266 - Glenohumeral/Tronchanteric Bursa/Intraarticular ([id number])
[2023-11-18 11:23] VITALS: BMI 28.9
== END 2023-11-18 11:47 | disposition home or self-care (01) ==
PROVIDERS: PCP Internal Medicine; Visit Provider Physician Assistant
DX: M70.61 Trochanteric bursitis, right hip (principal); M76.01 Gluteal tendinitis, right hip
CPT/HCPCS: 20610; 99203

== ENCOUNTER 2023-11-26 09:48 | Outpatient (REF) | payer OTHER, SELFPAY ==
[2023-11-26 11:59] LABS: Anion Gap 12 (12-20); Blood Urea Nitrogen 29 mg/dL (9-16); Carbon Dioxide 25 mmol/L (22-29); Chloride 109 mmol/L (96-108); Estimated Glomerular Filt Rate 32; Potassium 4.4 mmol/L (3.3-5.1); Sodium 142 mmol/L (135-145)
== END 2023-11-26 09:49 | disposition home or self-care (01) ==
LOC: HO.LAB 09:48
PROVIDERS: PCP Internal Medicine; Visit Provider Internal Medicine Nephrology
DX: I12.9 Hypertensive chronic kidney disease with stage 1 through stage 4 chronic kidney disease, or unspecified chronic kidney disease (principal); N18.31 Chronic kidney disease, stage 3a
CPT/HCPCS: 36415; 80051; 82565; 84520

== ENCOUNTER 2023-12-16 10:07 | Outpatient (AMB) | payer OTHER, SELFPAY ==
[2023-12-16 10:38] VITALS: BP 140/70; PULSE 63; O2SAT 97; BMI 29.0
--- NOTE | 2023-12-16 10:38 | HO.NEPHOV_ITS ---
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 Honing Machine Operator Production services refused/ refusal form signed and scanned into chart. ) Honing Machine Operator Production Name: Leanna Olvera Accompanied by: Other Relationship Allergies ciprofloxacin [CIPROFLOXACIN] Allergy (Unknown, Verified 12/16/23 10:42) RASH, anaphylaxis pioglitazone Allergy (Unknown, Verified 12/16/23 10:42) Swelling tamsulosin Allergy (Unknown, Verified 12/16/23 10:42) rash? HPI Comments Details: I had the privilege of seeing Mr. Brewster in follow up for his chronic kidney disease. He is a diabetic. His last hemoglobin A1c was under 7. He is hypertensive and has been on medications. He has history of prostate cancer. He was thought to have diabetic nephropathy. He has been overweight, but improving. He denies any coronary artery disease, congestive heart failure, carotid stenosis, CVA, CHF, PUD or SHYLA. He denies taking excessive nonsteroidal anti-inflammatory medications. He does not check his blood pressure at home. He denies chest pain, shortness of breath, proximal nocturnal dyspnea, orthopnea, pedal edema or orthostatic symptoms. His last serum creatinine is stable. He is on Jardiance now. He had a renal biopsy which showed some focal and segmental changes along with diabetic nephropathy changes. He had a CT which showed A 1.5 cm right mid pole renal lesion [facility] Medical History Prostate CA Chronic diarrhea Overweight (BMI 25.0-29.9) Diabetic neuropathy Hypertension Urinary bladder cancer Obesity (BMI 30-39.9) Hypercholesterolemia GERD (gastroesophageal reflux disease) Lumbar spondylosis Type 2 diabetes mellitus with hyperglycemia Surgical History Hx of hernia repair History of prostate surgery History of colonoscopy History of cholecystectomy History of appendectomy Family History Father Diabetes Myocardial infarct Mother No problems noted. Maternal Grandmother Stomach cancer Maternal Uncle Cancer Social History Housing: Apartment Alcohol intake: never Patient Tobacco Use Status: Never used Tobacco e-Cigarette/Vaping Use: Never Used Second Hand Smoke Exposure: No service: No Current occupational status: disabled Cognitive needs: No Hearing needs: No Vision needs: Yes Review of Systems Const All systems reviewed & are unremarkable except as noted in HPI and below Physical Exam Vital Signs: Last Vital Signs Pulse 63 12/16/23 10:38 BP 140/70 H 12/16/23 10:38 Pulse Ox 97 12/16/23 10:38 Oxygen Delivery Method Room Air 12/16/23 10:38 BMI result Body Mass Index 29.0 Const General: comfortable and no acute distress Orientation/consciousness: patient oriented x3 HEENT Head: Yes normocephalic Mouth: Normal oral and palatal mucosa present Eyes EOM: EOMs intact bilaterally Neck Neck: Yes supple Resp Auscultation: clear to auscultation bilaterally Cardio Jugular venous distension: no JVD Rate: regular rate GI Palpation (GI): Soft to palpation Auscultation: normal bowel sounds General: Yes no CVA tenderness Back/Spine/Pelvis Back: no CVA tenderness Skin General skin exam: no rashes or lesions noted Neuro General: patient oriented x3 and moves all extremities Extrem General: Yes no pedal edema Results Reviewed Nephrology Results: Hgb 12.7 g/dl (14.0-18.0) L 10/25/23 WBC 7.0 X10*3/uL (4.8-10.8) 10/25/23 Plt Count 183 X10*3/uL (160-400) 10/25/23 Sodium 142 mmol/L (135-145) 11/26/23 Potassium 4.4 mmol/L (3.3-5.1) 11/26/23 Chloride 109 mmol/L (96-108) H 11/26/23 Carbon Dioxide 25 mmol/L (22-29) 11/26/23 BUN 29 mg/dL (9-16) H 11/26/23 Creatinine 2.07 mg/dL (0.5-1.4) H 11/26/23 Calcium 8.7 mg/dL (8.4-10.2) 10/25/23 Urine Protein 30 (1+) mg/dL (Neg-Trace) H 10/10/23 Assessment & Plan Assessment & Plan (1) CKD (chronic kidney disease) stage 3, GFR 30-59 ml/min: Code(s): N18.30 - Chronic kidney disease, stage 3 unspecified Category: Medical Qualifiers: Chronic kidney disease stage 3 subtype: stage 3a (GFR 45-59) Qualified Code(s): N18.31 - Chronic kidney disease, stage 3a (2) Diabetic nephropathy: Code(s): E11.21 - Type 2 diabetes mellitus with diabetic nephropathy Category: Medical Qualifiers: Diabetes mellitus type: type 2 Qualified Code(s): E11.21 - Type 2 diabetes mellitus with diabetic nephropathy (3) Hypertension: Code(s): I10 - Essential (primary) hypertension Category: Medical Qualifiers: Hypertension type: essential hypertension Qualified Code(s): I10 - Essential (primary) hypertension Plan Mr. 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 He needs to lose weight. His urine output is good. He has had prostate cancer and is followed up by Dr. Stark. He should continue Jardiance to 10 mg and he can continue enalaprii 2.5 mg daily. He should avoid nonsteroidal anti-inflammatory medications, maintain good hydration and cut back salt in the diet. I did not make any other medication changes at this visit. All his and his 's questions were answered. Follow-up given Orders: Orders Blood Urea Nitrogen Today N18.31 - Chronic kidney disease, stage 3a Electrolytes Today N18.31 - Chronic kidney disease, stage 3a Protein Creatinine Ratio, Ur Today N18.31 - Chronic kidney disease, stage 3a Creatinine Today N18.31 - Chronic kidney disease, stage 3a Coding Level of Care Code Est Pt Level 4 (17836) Diagnoses Stage 3a chronic kidney disease N18.31 Chronic kidney disease stage 3 subtype: stage 3a (GFR 45-59) Diabetic nephropathy associated with type 2 diabetes mellitus E11.21 Diabetes mellitus type: type 2 Essential hypertension I10 Hypertension type: essential hypertension
== END 2023-12-16 11:00 | disposition home or self-care (01) ==
PROVIDERS: PCP Internal Medicine; Visit Provider Internal Medicine Nephrology
DX: N18.31 Chronic kidney disease, stage 3a (principal); E11.21 Type 2 diabetes mellitus with diabetic nephropathy; I10 Essential (primary) hypertension
CPT/HCPCS: 99214

== ENCOUNTER → 2023-12-16 10:07 | Outpatient (BNVA) | payer OTHER, SELFPAY | PROVIDERS: PCP Internal Medicine; Visit Provider Internal Medicine Nephrology | DX: E11.22 Type 2 diabetes mellitus with diabetic chronic kidney disease (principal); I12.9 Hypertensive chronic kidney disease with stage 1 through stage 4 chronic kidney disease, or unspecified chronic kidney disease; N18.31 Chronic kidney disease, stage 3a; E11.21 Type 2 diabetes mellitus with diabetic nephropathy | CPT/HCPCS: 99212 ==

== ENCOUNTER 2024-01-04 09:37 | Outpatient (AMB) | payer OTHER, SELFPAY ==
[2024-01-04 09:38] VITALS: BP 140/72; PULSE 61; O2SAT 98; BMI 28.9
--- NOTE | 2024-01-04 09:38 | MHC.PC.OV ---
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 Medication List - Last Reconciled 01/04/24 by Nidhi Vasquez PA-C acetaminophen (Tylenol Extra Strength) 500 mg PO QID PRN atorvastatin 20 mg PO QPM cyanocobalamin (vitamin B-12) 1,000 mcg sublingual DAILY cyclobenzaprine 10 mg PO TID PRN diclofenac sodium 1% (Voltaren Arthritis Pain) 4 grams topical QID dulaglutide (Trulicity) 3 mg (0.5 mL) subcut QWEEK empagliflozin (Jardiance) 10 mg PO DAILY 30 days enalapril maleate 2.5 mg PO DAILY gabapentin 100 mg PO BEDTIME glipizide ER 2.5 mg PO DAILY lidocaine 5% (Lidoderm) 1 patch topical DAILY metoprolol succinate ER 100 mg PO DAILY omeprazole 20 mg PO DAILY oxycodone 5 mg PO Q6H PRN pen needle, diabetic (BD Ultra-Fine Mini Pen Needle) As directed triamcinolone acetonide 0.5% 1 appl topical BID Tobacco use date assessed: 08/12/23 Fall risk assessment: No Falls in past year Last assessed Fall Risk: 01/04/24 Dental Screening Dental Screen Date: 08/12/23 HPI f/u HPI Details 68-year-old male with past medical history of controlled diabetes mellitus, GERD, hypercholesterolemia, hypertension, chronic kidney disease and urinary bladder cancer last seen by Dr. Oh 10/16/2023 coming in for follow up. In review of the notes, patient was seen by Nephrology December 2023 follow up on chronic kidney disease advised weight loss and continue to follow with Urology for prostate cancer, advised avoiding NSAIDs and maintaining good hydration. Patient was seen by Orthopedics for trochanteric bursitis and given right hip injection and sent for physical therapy. Patient presents today with his who translates for the duration of the appointment. He mentions he has been without Jardiance for several months and has been unable to get it from the pharmacy. He does monitor his blood sugars at home and have had a few values in the 90s but never lower and never above 200. He does not skip meals. He also mentions he has been eating more fruit than usual. [facility] Medical History Prostate CA Chronic diarrhea Overweight (BMI 25.0-29.9) Diabetic neuropathy Hypertension Urinary bladder cancer Obesity (BMI 30-39.9) Hypercholesterolemia GERD (gastroesophageal reflux disease) Lumbar spondylosis Type 2 diabetes mellitus with hyperglycemia Surgical History Hx of hernia repair History of prostate surgery History of colonoscopy History of cholecystectomy History of appendectomy Family History Father Diabetes Myocardial infarct Mother No problems noted. Maternal Grandmother Stomach cancer Maternal Uncle Cancer Social History Housing: Apartment Alcohol intake: never Patient Tobacco Use Status: Never used Tobacco Tobacco use type: Cigarette e-Cigarette/Vaping Use: Never Used Second Hand Smoke Exposure: No service: No Current occupational status: disabled Cognitive needs: No Hearing needs: No Vision needs: Yes Questionnaire PHQ-9 Over the last 2 weeks, how often have you been bothered by any of the following problems? 1. Little interest or pleasure in doing things: not at all 2. Feeling down, depressed, or hopeless: not at all 3. Trouble falling or staying asleep, or sleeping too much: not at all 4. Feeling tired or having little energy: not at all 5. Poor appetite or overeating: not at all 6. Feeling bad about yourself - or that you are a failure or have let yourself or your family down: not at all 7. Trouble concentrating on things, such as reading the newspaper or watching television: not at all 8. Moving or speaking so slowly that other people could have noticed. Or the opposite - being so fidgety or restless that you have been moving around a lot more than usual: not at all 9. Thoughts that you would be better off or of hurting yourself in some way: not at all Total score: 0 Depression Screening Interpretation: Negative Depression Screening Done: Yes Source: Developed by Drs. Yosi Melchor, Radha Laura, Shivam Mcnally and colleagues, with an educational jamar from [employer]. Thrive Questionnaire Date Thrive assessed: 08/12/23 AUDIT C Alcohol Use Questionnaire (AUDIT-C) 1. How often do you have a drink containing alcohol?: Never 3. How often do you have six or more drinks on one occasion?: Never Total Score: 0 Score Reviewed/Action Taken: No MADELINE-7 AMB Questionnaire MADELINE-7 Date MADELINE - 7 assessed: 08/12/23 Source: Developed by Drs. Yosi Melchor, Radha Laura, Shivam Mcnally and colleagues, with an educational jamar from [employer]. Review of Systems Const Denies chills and Denies fever(s) Eyes Reports no additional complaints ENT Reports no additional complaints Card Denies chest pain, Denies irregular heart rhythm, Denies leg edema, Denies lightheadedness and Denies dyspnea Resp Denies dyspnea GI Reports no additional complaints Reports no additional complaints Musc Details: Left-sided rib pain Physical exam (Primary Care) Vital Signs: Last Vital Signs Pulse 61 01/04/24 09:38 BP 140/72 H 01/04/24 09:38 Pulse Ox 98 01/04/24 09:38 Oxygen Delivery Method Room Air 01/04/24 09:38 BMI result Body Mass Index 28.9 Tobacco/Smoking Status: Tobacco use Status Tobacco use date assessed 08/12/23 01/04/24 09:39 Patient Tobacco Use Status Never used Tobacco 01/04/24 09:39 Tobacco use type Cigarette 01/04/24 09:39 e-Cigarette/Vaping Use Never Used 01/04/24 09:39 PHQ-9: PHQ-9 Score PHQ-9: Total score 0 01/04/24 09:51 Depression Screening Interpretation: Negative Thrive Assessment: Date of Thrive Assessment Date Thrive assessed 08/12/23 01/04/24 09:39 Const General: cooperative, healthy appearing, comfortable and no acute distress Orientation/consciousness: patient oriented x3 [facility] Head: Yes normocephalic Ears: hearing grossly normal bilaterally General nose exam: Normal external nose present Eyes General: appearance normal, both eyes and all related structures Conjunctivae: conjunctivae normal Neck Neck: Yes full ROM and Yes no lymphadenopathy Chest Other: pain to palpation over left ribs without overlying skin changes or bruising Resp Effort & Inspection: normal respiratory effort Auscultation: clear to auscultation bilaterally, no crackles, no rales, no rhonchi and no wheezes Cardio Rate: regular rate Rhythm: regular rhythm Skin General skin exam: no rashes or lesions noted Neuro General: patient oriented x3 Gait exam (Neuro): Normal gait present Extrem General: Yes normal to inspection, Yes full ROM and No edema Psych Affect: normal affect Attitude: cooperative Insight: Good insight present (Psych) Judgement: Good judgement present (Psych) Results AMB Hemoglobin A1c AMB Hemoglobin A1c 7.1 % Last Edit by Dipti Graf CMA on 01/04/24 09:54 Results Reviewed Results Reviewed: Laboratory Last Values Hgb A1c (Clinic) 7.1 % (4.0-6.0) H 01/04/24 09:44 Assessment and Plan Assessment & Plan (1) Rib pain: Code(s): R07.81 - Pleurodynia Plan: Patient has been having left-sided rib pain over the last few weeks. denies any falls or injuries. Ordered for chest x-ray. (2) CKD (chronic kidney disease) stage 3, GFR 30-59 ml/min: Code(s): N18.30 - Chronic kidney disease, stage 3 unspecified Qualifiers: Chronic kidney disease stage 3 subtype: stage 3a (GFR 45-59) Qualified Code(s): N18.31 - Chronic kidney disease, stage 3a Plan: Stable at this time, continue to avoid irritants such as NSAIDs and stay well hydrated. (3) Hypertension: Code(s): I10 - Essential (primary) hypertension Qualifiers: Hypertension type: essential hypertension Qualified Code(s): I10 - Essential (primary) hypertension Plan: Blood pressure mildly elevated 140/72 in the office today when retaken 130/70. Continue on metoprolol and enalapril. (4) Hypercholesterolemia: Code(s): E78.00 - Pure hypercholesterolemia, unspecified Plan: Avoid foods that are high in cholesterol such as red meat, fried foods, eggs and baked goods. Triglyceride goal of less than 150 and LDL goal of less than 100. 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 Although fruits are generally healthy they should be eaten in moderation as they are still high in sugar. Hemoglobin A1c goal of less than 7%. A1c today 7.1% is at goal however elevated from last appointment. Patient states he has been without Jardiance for several weeks now. Advised patient to take all medications as prescribed and reach out the office if he is unable to get them. Continue on Jardiance, glipizide, Trulicity. (6) GERD (gastroesophageal reflux disease): Code(s): K21.9 - Gastro-esophageal reflux disease without esophagitis Qualifiers: Esophagitis presence: without esophagitis Qualified Code(s): K21.9 - Gastro-esophageal reflux disease without esophagitis Plan: Avoid trigger foods such as citrus, tomato products, soda, caffeine, spicy foods and other foods that may be irritating to your stomach. Avoid laying flat 3-4 hours after eating and elevate the head of the bed 30 degrees to prevent acid from moving into the esophagus. Continue on omeprazole Plan This note was constructed using voice recognition software. While every effort has been made to ensure accuracy and embossing tool setter, still areas may have been included sometimes these areas may affect the content or meeting of the given symptoms. Total time spent caring for the patient today was 30 minutes. This includes time spent before the visit reviewing the chart, time spent during the visit, and time spent after the visit and documentation. Orders: Orders AMB Hemoglobin A1c Today E11.65 - Type 2 diabetes mellitus with hyperglycemia Lipid Panel Today E78.00 - Pure hypercholesterolemia, unspecified Creatinine Urine Today E11.65 - Type 2 diabetes mellitus with hyperglycemia Vitamin B12 and Folate Today E11.65 - Type 2 diabetes mellitus with hyperglycemia XR chest 2V Today R07.81 - Pleurodynia Free T4 (Free Thyroxine) Today E78.00 - Pure hypercholesterolemia, unspecified Microalbumin, Random (w Creat) Today E11.65 - Type 2 diabetes mellitus with hyperglycemia Thyroid Stimulating Hormone Today E78.00 - Pure hypercholesterolemia, unspecified Medications: Refilled empagliflozin (Jardiance) 10 mg PO DAILY 30 days 30 tabs 6RF Coding Level of Care Code Est Pt Level 3 (74114) Diagnoses Rib pain R07.81 Stage 3a chronic kidney disease N18.31 Chronic kidney disease stage 3 subtype: stage 3a (GFR 45-59) Essential hypertension I10 Hypertension type: essential hypertension Hypercholesterolemia E78.00 Type 2 diabetes mellitus with hyperglycemia, without long-term current use of insulin E11.65 Diabetes mellitus prison insulin use: without prison use Gastroesophageal reflux disease without esophagitis K21.9 Esophagitis presence: without esophagitis Additional Codes PHQ-9 - 15816 - PHQ-9 Billing: ([id number])
[2024-01-04 12:52] VITALS: BP 130/70
== END 2024-01-04 10:13 | disposition home or self-care (01) ==
PROVIDERS: PCP Internal Medicine
DX: I12.9 Hypertensive chronic kidney disease with stage 1 through stage 4 chronic kidney disease, or unspecified chronic kidney disease (principal); R07.81 Pleurodynia; N18.31 Chronic kidney disease, stage 3a; E11.65 Type 2 diabetes mellitus with hyperglycemia; E78.00 Pure hypercholesterolemia, unspecified; K21.9 Gastro-esophageal reflux disease without esophagitis

== ENCOUNTER → 2024-01-04 09:37 | Outpatient (BNVA) | payer OTHER, SELFPAY | PROVIDERS: PCP Internal Medicine | DX: E11.65 Type 2 diabetes mellitus with hyperglycemia (principal); R07.81 Pleurodynia; I12.9 Hypertensive chronic kidney disease with stage 1 through stage 4 chronic kidney disease, or unspecified chronic kidney disease; E11.22 Type 2 diabetes mellitus with diabetic chronic kidney disease; N18.31 Chronic kidney disease, stage 3a; E78.00 Pure hypercholesterolemia, unspecified; K21.9 Gastro-esophageal reflux disease without esophagitis | CPT/HCPCS: 83036; 96127; 99212 ==

== ENCOUNTER 2024-01-05 08:36 | Outpatient (REF) | payer OTHER, SELFPAY ==
--- NOTE | ~2024-01-05 | XR_ITS ---
EXAMINATION: XR CHEST CLINICAL INFORMATION: R07.81 - Pleurodynia COMPARISON: 02/12/2023, 07/07/2022. TECHNIQUE: 2 views of the chest were obtained. FINDINGS: The cardiac, hilar, and mediastinal contours are normal. The lungs are clear bilaterally. There is no pneumothorax or pleural effusion. There is no focal osseous or soft tissue abnormality. There are degenerative changes again noted in the thoracic spine. XR/XR chest 2V IMPRESSION: No active pulmonary disease. Electronically signed by: Maciej De MD 03/14/2024 09:35 AM [facility] [place]
[2024-01-05 09:56] LABS: Creatinine Urine 221.61 mg/dL; Microalbum/Creatinine Ratio Ur 64.5 ug/mg cr (<30)
[2024-01-05 10:02] LABS: Cholesterol 146 mg/dL (<200); HDL Cholesterol 43 mg/dL (>40); LDL Cholesterol Calculated 83 mg/dL (<100); Triglycerides 100 mg/dL (<150)
[2024-01-05 10:25] LABS: Free T4 (Free Thyroxine) 0.88 ng/dL (0.71-1.85); Thyroid Stimulating Hormone 1.83 uIU/mL (0.32-4.0)
[2024-01-05 10:26] LABS: Folate 6.8 ng/mL (> or = 4.0); Vitamin B12 1112 pg/mL (200-900)
== END 2024-01-05 08:37 | disposition home or self-care (01) ==
LOC: HO.XRAY 08:36
DX: E78.00 Pure hypercholesterolemia, unspecified (principal); E11.65 Type 2 diabetes mellitus with hyperglycemia; R07.81 Pleurodynia
CPT/HCPCS: 36415; 71046; 80061; 82043; 82570; 82607; 82746; 84439; 84443

== ENCOUNTER → 2024-01-05 08:53 | Outpatient (BNV) | payer OTHER, SELFPAY | PROVIDERS: Visit Provider Radiology Diagnostic Radiology | DX: R07.81 Pleurodynia (principal) | CPT/HCPCS: 71046 ==

== ENCOUNTER 2024-03-01 10:19 | Outpatient (REF) | payer OTHER, SELFPAY ==
[2024-03-01 11:43] LABS: Anion Gap 14 (12-20); Blood Urea Nitrogen 27 mg/dL (9-16); Carbon Dioxide 23 mmol/L (22-29); Chloride 108 mmol/L (96-108); Estimated Glomerular Filt Rate 34; Potassium 4.5 mmol/L (3.3-5.1); Sodium 140 mmol/L (135-145)
[2024-03-01 11:51] LABS: Protein/Creatinine Ratio, Ur 0.17 (<0.2); Total Protein Urine Random 35 mg/dL (<12)
== END 2024-03-01 10:20 | disposition home or self-care (01) ==
LOC: HO.LAB 10:19
PROVIDERS: PCP Internal Medicine; Visit Provider Internal Medicine Nephrology
DX: N18.31 Chronic kidney disease, stage 3a (principal)
CPT/HCPCS: 36415; 80051; 82565; 82570; 84156; 84520

== ENCOUNTER 2024-03-16 11:28 | Outpatient (AMB) | payer OTHER, SELFPAY ==
--- NOTE | 2024-03-16 12:17 | HO.NEPHOV ---
Vital Signs 03/16/24 12:19 Height 5 ft 9 in Weight 200 lb 4 oz BMI 29.6 BP 126/70 Blood Pressure Location Lt brachial Position Sitting Pulse 71 Pulse Source Pulse Oximeter Pulse Oximetry (%) 95 Oxygen Delivery Method Room Air Intake Visit Reasons: 3 mon follow up/ Conf Senior Software Test Engineer Required: Yes Senior Software Test Engineer Language: Parts Identification Technician Services: Senior Software Test Engineer Offered & Declined ([facility] supervisor cutting and sewing room services refused.) Senior Software Test Engineer Name: Leanna Olvera Accompanied by: Other Relationship Allergies ciprofloxacin [CIPROFLOXACIN] Allergy (Unknown, Verified 03/16/24 12:18) RASH, anaphylaxis pioglitazone Allergy (Unknown, Verified 03/16/24 12:18) Swelling tamsulosin Allergy (Unknown, Verified 03/16/24 12:18) rash? HPI Comments Details: Mr. Brewster in follow up for his chronic kidney disease. He is a diabetic. His last hemoglobin A1c was 7.1. He is hypertensive and has been on medications. He has history of prostate cancer. He was thought to have diabetic nephropathy. He has been overweight, but improving. He denies any coronary artery disease, congestive heart failure, carotid stenosis, CVA, CHF, PUD or SHYLA. He denies taking excessive nonsteroidal anti-inflammatory medications. He denies chest pain, shortness of breath, proximal nocturnal dyspnea, orthopnea, pedal edema or orthostatic symptoms. He is on Jardiance now. He had a renal biopsy which showed some focal and segmental changes along with diabetic nephropathy changes. He had a CT which showed A 1.5 cm right mid pole renal lesion [facility] Medical History Prostate CA Chronic diarrhea Overweight (BMI 25.0-29.9) Diabetic neuropathy Hypertension Urinary bladder cancer Obesity (BMI 30-39.9) Hypercholesterolemia GERD (gastroesophageal reflux disease) Lumbar spondylosis Type 2 diabetes mellitus with hyperglycemia Surgical History Hx of hernia repair History of prostate surgery History of colonoscopy History of cholecystectomy History of appendectomy Family History Father Diabetes Myocardial infarct Mother No problems noted. Maternal Grandmother Stomach cancer Maternal Uncle Cancer Social History (Reviewed 03/16/24 @ 12:17 by CLAIRE Brooks Housing: Apartment Alcohol intake: never Patient Tobacco Use Status: Never used Tobacco Tobacco use type: Cigarette e-Cigarette/Vaping Use: Never Used Second Hand Smoke Exposure: No service: No Current occupational status: disabled Cognitive needs: No Hearing needs: No Vision needs: Yes Review of Systems Const All systems reviewed & are unremarkable except as noted in HPI and below Physical Exam Vital Signs: Last Vital Signs Pulse 71 03/16/24 12:19 BP 126/70 03/16/24 12:19 Pulse Ox 95 03/16/24 12:19 Oxygen Delivery Method Room Air 03/16/24 12:19 BMI result Body Mass Index 29.6 Const General: comfortable and no acute distress Orientation/consciousness: patient oriented x3 HEENT Head: Yes normocephalic Mouth: Normal oral and palatal mucosa present Eyes EOM: EOMs intact bilaterally Neck Neck: Yes supple Resp Auscultation: clear to auscultation bilaterally Cardio Jugular venous distension: no JVD Rate: regular rate GI Palpation (GI): Soft to palpation Auscultation: normal bowel sounds General: Yes no CVA tenderness Back/Spine/Pelvis Back: no CVA tenderness Skin General skin exam: no rashes or lesions noted Neuro General: patient oriented x3 and moves all extremities Extrem General: Yes no pedal edema Results Reviewed Nephrology Results: Hgb 12.7 g/dl (14.0-18.0) L 10/25/23 WBC 7.0 X10*3/uL (4.8-10.8) 10/25/23 Plt Count 183 X10*3/uL (160-400) 10/25/23 Sodium 140 mmol/L (135-145) 03/01/24 Potassium 4.5 mmol/L (3.3-5.1) 03/01/24 Chloride 108 mmol/L (96-108) 03/01/24 Carbon Dioxide 23 mmol/L (22-29) 03/01/24 BUN 27 mg/dL (9-16) H 03/01/24 Creatinine 1.95 mg/dL (0.5-1.4) H 03/01/24 Calcium 8.7 mg/dL (8.4-10.2) 10/25/23 Urine Creatinine 200.50 mg/dL 03/01/24 Protein/Creatinin Ratio 0.17 (<0.2) 03/01/24 Assessment & Plan Assessment & Plan (1) CKD (chronic kidney disease) stage 3, GFR 30-59 ml/min: Code(s): N18.30 - Chronic kidney disease, stage 3 unspecified Category: Medical Qualifiers: Chronic kidney disease stage 3 subtype: stage 3a (GFR 45-59) Qualified Code(s): N18.31 - Chronic kidney disease, stage 3a (2) Hypertension: Code(s): I10 - Essential (primary) hypertension Category: Medical Qualifiers: Hypertension type: essential hypertension Qualified Code(s): I10 - Essential (primary) hypertension Plan Mr. 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 He needs to lose weight. His urine output is good. He has had prostate cancer and is followed up by Dr. Stark. He should continue Jardiance to 10 mg and he can continue enalaprii 2.5 mg daily. He should avoid nonsteroidal anti-inflammatory medications, maintain good hydration and cut back salt in the diet. I did not make any other medication changes at this visit. All his and his 's questions were answered. Follow-up given Orders: Orders Creatinine 3 Months N18.31 - Chronic kidney disease, stage 3a Electrolytes 3 Months N18.31 - Chronic kidney disease, stage 3a Blood Urea Nitrogen 3 Months N18.31 - Chronic kidney disease, stage 3a Coding Level of Care Code Est Pt Level 4 (85166) Diagnoses Stage 3a chronic kidney disease N18.31 Chronic kidney disease stage 3 subtype: stage 3a (GFR 45-59) Essential hypertension I10 Hypertension type: essential hypertension
[2024-03-16 12:19] VITALS: BP 126/70; PULSE 71; O2SAT 95; BMI 29.6
== END 2024-03-16 12:33 | disposition home or self-care (01) ==
PROVIDERS: PCP Internal Medicine; Visit Provider Internal Medicine Nephrology
DX: I12.9 Hypertensive chronic kidney disease with stage 1 through stage 4 chronic kidney disease, or unspecified chronic kidney disease (principal); N18.31 Chronic kidney disease, stage 3a
CPT/HCPCS: 99214

== ENCOUNTER → 2024-03-16 11:28 | Outpatient (BNVA) | payer OTHER, SELFPAY | PROVIDERS: PCP Internal Medicine; Visit Provider Internal Medicine Nephrology | DX: I12.9 Hypertensive chronic kidney disease with stage 1 through stage 4 chronic kidney disease, or unspecified chronic kidney disease (principal); N18.31 Chronic kidney disease, stage 3a | CPT/HCPCS: 99212 ==

== ENCOUNTER 2024-04-04 11:10 | Outpatient (REF) | payer OTHER, SELFPAY ==
[2024-04-04 12:32] LABS: Appearance Urine Clear; Color Urine Yellow; Glucose Urine UA >=1000 mg/dL (Negative); Leukocyte Esterase Urine Negative (Negative); Nitrite Urine Negative (Negative); PH 5.5 (5.0-9.0); Specific Gravity - Urine >= 1.030 (1.005-1.025); UMIC TRIGGER UACC YES; Urine Blood Negative (Negative); Urine Ketones Negative (Negative); Urine Protein 30 (1+) mg/dL (Neg-Trace)
[2024-04-04 12:38] LABS: Bacteria Urine None Seen (None Seen); Hyaline Casts Urine 0-2 /LPF (0-2); RBC Urine 0-2 /HPF (0-2); Squamous Epithelial Cell Urine 0-2 /HPF (0-2); WBC Urine 0-5 /HPF (0-5)
[2024-04-04 14:10] LABS: Creatinine Urine 107.74 mg/dL; Microalbum/Creatinine Ratio Ur 121.5 ug/mg cr (<30)
== END 2024-04-04 11:11 | disposition home or self-care (01) ==
LOC: HO.LAB 11:10
PROVIDERS: PCP Internal Medicine
DX: E11.9 Type 2 diabetes mellitus without complications (principal)
CPT/HCPCS: 81001; 82043; 82570; 83036; 99212

== ENCOUNTER 2024-04-04 11:10 | Outpatient (AMB) | payer OTHER, SELFPAY ==
[2024-04-04 11:21] VITALS: BP 132/82; PULSE 69; O2SAT 98; BMI 29.6
--- NOTE | 2024-04-04 11:21 | MHC.PC.OV ---
Vital Signs 04/04/24 11:21 Height 5 ft 9 in Weight 200 lb 8 oz BMI 29.6 BP 132/82 Blood Pressure Location Lt brachial Position Sitting Pulse 69 Pulse Source Pulse Oximeter Pulse Oximetry (%) 98 Oxygen Delivery Method Room Air Intake Visit Reasons: f/u DM Allergies ciprofloxacin [CIPROFLOXACIN] Allergy (Unknown, Verified 04/04/24 11:28) RASH, anaphylaxis pioglitazone Allergy (Unknown, Verified 04/04/24 11:28) Swelling tamsulosin Allergy (Unknown, Verified 04/04/24 11:28) rash? Medication List - Last Reconciled 04/04/24 by Nidhi Vasquez PA-C acetaminophen (Tylenol Extra Strength) 500 mg PO QID PRN atorvastatin 20 mg PO QPM cyanocobalamin (vitamin B-12) 1,000 mcg sublingual DAILY cyclobenzaprine 10 mg PO TID PRN diclofenac sodium 1% (Voltaren Arthritis Pain) 4 grams topical QID dulaglutide (Trulicity) 3 mg (0.5 mL) subcut QWEEK empagliflozin (Jardiance) 10 mg PO DAILY 30 days enalapril maleate 2.5 mg PO DAILY gabapentin 100 mg PO BEDTIME glipizide ER 2.5 mg PO DAILY lidocaine 5% (Lidoderm) 1 patch topical DAILY metoprolol succinate ER 100 mg PO DAILY omeprazole 20 mg PO DAILY oxycodone 5 mg PO Q6H PRN pen needle, diabetic (BD Ultra-Fine Mini Pen Needle) As directed triamcinolone acetonide 0.5% 1 appl topical BID Tobacco use date assessed: 04/04/24 Fall risk assessment: No Falls in past year Last assessed Fall Risk: 04/04/24 Dental Screening Dental Screen Date: 04/04/24 Did you have a dental visit in the last 12 months?: Yes Did you have a dental problem in the last 6 months where you did not have access to dental care?: No Was dental information given to patient?: Patient has dentist HPI f/u DM HPI Details 69-year-old male with past medical history of controlled diabetes mellitus, GERD hypercholesterolemia, hypertension, chronic kidney disease and urinary bladder cancer at last seen December 2023 coming in for follow up. In review of the notes, patient was seen by Nephrology 03/2024 advised to lose weight and continue on Jardiance and enalapril. Patient tells us today he monitors his blood pressures at home has not had any values below 100 in the last 4 months. Denies any lightheadedness or dizziness. He believes that he has been out of the Jardiance for about a month but is unsure if this is medication or another medication that he is out of. He has no other concerns today. [facility] Medical History Prostate CA Chronic diarrhea Overweight (BMI 25.0-29.9) Diabetic neuropathy Hypertension Urinary bladder cancer Obesity (BMI 30-39.9) Hypercholesterolemia GERD (gastroesophageal reflux disease) Lumbar spondylosis Type 2 diabetes mellitus with hyperglycemia Surgical History Hx of hernia repair History of prostate surgery History of colonoscopy History of cholecystectomy History of appendectomy Family History Father Diabetes Myocardial infarct Mother No problems noted. Maternal Grandmother Stomach cancer Maternal Uncle Cancer Social History Housing: Apartment Alcohol intake: never Patient Tobacco Use Status: Never used Tobacco Tobacco use type: Cigarette e-Cigarette/Vaping Use: Never Used Second Hand Smoke Exposure: No service: No Current occupational status: disabled Cognitive needs: No Hearing needs: No Vision needs: Yes Questionnaire PHQ-9 Over the last 2 weeks, how often have you been bothered by any of the following problems? 1. Little interest or pleasure in doing things: not at all 2. Feeling down, depressed, or hopeless: not at all 3. Trouble falling or staying asleep, or sleeping too much: not at all 4. Feeling tired or having little energy: not at all 5. Poor appetite or overeating: not at all 6. Feeling bad about yourself - or that you are a failure or have let yourself or your family down: not at all 7. Trouble concentrating on things, such as reading the newspaper or watching television: not at all 8. Moving or speaking so slowly that other people could have noticed. Or the opposite - being so fidgety or restless that you have been moving around a lot more than usual: not at all 9. Thoughts that you would be better off or of hurting yourself in some way: not at all Total score: 0 Depression Screening Interpretation: Negative Depression Screening Done: Yes Source: Developed by Drs. Yosi Melchor, Radha Laura, Shivam Mcnally and colleagues, with an educational jamar from [employer]. Thrive Questionnaire Date Thrive assessed: 04/04/24 I am a: Patient What is your living situation today?: I have a steady place to live Within the past 12 months, did the food you bought not last and you didn't have the money to get more?: Never true Within the past 12 months, did you worry whether your food would run out before you got money to buy more?: Never true Do you have trouble paying for medicines?: No Do you have trouble getting transportation to medical appointments?: No Do you have trouble paying your heating and electricity bill?: No Do you have trouble taking care of your child, family member or friend?: No Do you have trouble with day-to-day activities such as bathing, preparing meals, shopping, managing finances, etc.?: No Are you currently unemployed and looking for a job?: No Are you interested in more education?: No Please select the resources that you would like help with: None THRIVE Score: 0 AUDIT C Alcohol Use Questionnaire (AUDIT-C) 1. How often do you have a drink containing alcohol?: Never 3. How often do you have six or more drinks on one occasion?: Never Total Score: 0 Score Reviewed/Action Taken: No MADELINE-7 AMB Questionnaire MADELINE-7 Date MADELINE - 7 assessed: 04/04/24 Feeling nervous, anxious, or on edge: 0 = Not at all Not being able to stop or control worryin = Not at all Worrying too much about different things: 0 = Not at all Trouble relaxin = Not at all Being so restless that it is hard to sit still: 0 = Not at all Becoming easily annoyed or irritable: 0 = Not at all Feeling afraid as if something awful might happen: 0 = Not at all Total MADELINE-7 score (0-4 normal; 5-9 mild; 10-14 moderate; 15-21 severe): 0 Source: Developed by Drs. Yosi Melchor, Radha Laura, Shivam Mcnally and colleagues, with an educational jamar from [employer]. Review of Systems Const Denies body aches, Denies chills, Denies fever(s), Denies headache(s) and Denies poor appetite Eyes Reports no additional complaints ENT Denies dizziness and Denies headache(s) Card Denies chest pain, Denies syncope, Denies edema, Denies irregular heart rhythm, Denies lightheadedness and Denies dyspnea Resp Denies cough and Denies dyspnea GI Denies abdominal pain, Denies constipation, Denies diarrhea, Denies nausea and Denies vomiting Reports no additional complaints Musc Reports no additional complaints and Denies abnormal gait Skin/Breast Reports system reviewed and no additional complaints, except as documented Neuro Denies abnormal gait, Denies dizziness, Denies syncope and Denies headache(s) Psych Reports no additional complaints Physical exam (Primary Care) Tobacco/Smoking Status: Tobacco use Status Tobacco use date assessed 08/12/23 01/04/24 09:39 Patient Tobacco Use Status Never used Tobacco 01/04/24 09:39 Tobacco use type Cigarette 01/04/24 09:39 e-Cigarette/Vaping Use Never Used 01/04/24 09:39 Depression Screening Interpretation: Negative Thrive Assessment: Date of Thrive Assessment Date Thrive assessed 08/12/23 01/04/24 09:39 Const General: cooperative, healthy appearing, comfortable and no acute distress Orientation/consciousness: patient oriented x3 HENMT Head: Yes normocephalic Ears: hearing grossly normal bilaterally General nose exam: Normal external nose present Eyes General: appearance normal, both eyes and all related structures Conjunctivae: conjunctivae normal Neck Neck: Yes full ROM and Yes no lymphadenopathy Resp Effort & Inspection: normal respiratory effort Auscultation: clear to auscultation bilaterally, no crackles, no rales, no rhonchi and no wheezes Cardio Rate: regular rate Rhythm: regular rhythm Skin General skin exam: no rashes or lesions noted Neuro General: patient oriented x3 Gait exam (Neuro): Normal gait present Extrem General: Yes normal to inspection, Yes full ROM and No edema Psych Affect: normal affect Attitude: cooperative Insight: Good insight present (Psych) Judgement: Good judgement present (Psych) Results AMB Hemoglobin A1c AMB Hemoglobin A1c 7.4 % Last Edit by Vicki Vargas CMA on 04/04/24 11:33 Coding Level of Care Code Est Pt Level 4 (83019) Diagnoses Stage 3a chronic kidney disease N18.31 Chronic kidney disease stage 3 subtype: stage 3a (GFR 45-59) Overweight (BMI 25.0-29.9) E66.3 Essential hypertension I10 Hypertension type: essential hypertension Urinary bladder cancer C67.9 Hypercholesterolemia E78.00 Type 2 diabetes mellitus with hyperglycemia, without long-term current use of insulin E11.65 Diabetes mellitus detention insulin use: without detention use Gastroesophageal reflux disease without esophagitis K21.9 Esophagitis presence: without esophagitis Assessment & Plan Assessment & Plan (1) CKD (chronic kidney disease) stage 3, GFR 30-59 ml/min: Code(s): N18.30 - Chronic kidney disease, stage 3 unspecified Category: Medical Qualifiers: Chronic kidney disease stage 3 subtype: stage 3a (GFR 45-59) Qualified Code(s): N18.31 - Chronic kidney disease, stage 3a Plan: Currently following with Nephrology advised to continue on Jardiance and enalapril. We will continue to monitor kidney function. (2) Overweight (BMI 25.0-29.9): Code(s): E66.3 - Overweight Category: Medical Plan: Healthy diet and regular exercise is encouraged. (3) Hypertension: Code(s): I10 - Essential (primary) hypertension Category: Medical Qualifiers: Hypertension type: essential hypertension Qualified Code(s): I10 - Essential (primary) hypertension Plan: Continue on current blood pressure medication. Avoid salt intake and encourage healthy diet and regular exercise. Blood pressure at goal today 132/82 (4) Urinary bladder cancer: Comment: November 2017 Dr. Stark Code(s): C67.9 - Malignant neoplasm of bladder, unspecified Category: Medical Plan: Currently following with Dr. Stark. (5) Hypercholesterolemia: Code(s): E78.00 - Pure hypercholesterolemia, unspecified Category: Medical Plan: Avoid foods that are high in cholesterol such as red meat, fried foods, eggs and baked goods. Triglyceride goal of less than 150 and LDL goal of less than 100. Continue on atorvastatin 20 mg. Last cholesterol labs at goal 12/2023 (6) Type 2 diabetes mellitus with hyperglycemia: Code(s): E11.65 - Type 2 diabetes mellitus with hyperglycemia Category: Medical Qualifiers: Diabetes mellitus extermination inspector insulin use: without extermination inspector use Qualified Code(s): E11.65 - Type 2 diabetes mellitus with hyperglycemia Plan: Decrease the amount of carbohydrates such as pasta, bread, rice, and potatoes and limit the amount of sweets. Although fruits are generally healthy they should be eaten in moderation as they are still high in sugar. Hemoglobin A1c goal of less than 7%. Currently on Trulicity, Jardiance, glipizide. Last A1c was 7.1% today was 7.4%. Patient is unsure if he has been out of Jardiance for the last month believes he is. Strongly advised patient to reach out to the office when he has these prescription issues as we can not tell if the Jardiance is working for him. We will defer increasing the dose at this time and advised patient to take Jardiance daily as prescribed and reach out to the office if there is any issue getting this prescription. Reviewed with patient A1c of 7.4% puts him at significant risk for cardiac disease as well as other complications discussed the importance of dietary changes. (7) GERD (gastroesophageal reflux disease): Code(s): K21.9 - Gastro-esophageal reflux disease without esophagitis Category: Medical Qualifiers: Esophagitis presence: without esophagitis Qualified Code(s): K21.9 - Gastro-esophageal reflux disease without esophagitis Plan: Avoid trigger foods such as citrus, tomato products, soda, caffeine, spicy foods and other foods that may be irritating to your stomach. Avoid laying flat 3-4 hours after eating and elevate the head of the bed 30 degrees to prevent acid from moving into the esophagus. Continue on omeprazole Plan This note was constructed using voice recognition software. While every effort has been made to ensure accuracy and edge glue machine tender, still areas may have been included sometimes these areas may affect the content or meeting of the given symptoms. Total time spent caring for the patient today was 30 minutes. This includes time spent before the visit reviewing the chart, time spent during the visit, and time spent after the visit and documentation. Orders: Orders AMB Hemoglobin A1c Today Z13.9 - Encounter for screening, unspecified Hemoglobin A1c 3 Months E11.65 - Type 2 diabetes mellitus with hyperglycemia Microalbumin, Random (w Creat) Today E11.9 - Type 2 diabetes mellitus without complications UA CC w/rflx Micro + Cult Today R35.89 - Other polyuria Lipid Panel 3 Months E78.00 - Pure hypercholesterolemia, unspecified Medications: New empagliflozin (Jardiance) 10 mg PO DAILY 90 tabs 2RF Refilled enalapril maleate 2.5 mg PO DAILY 90 tabs 2RF atorvastatin 20 mg PO QPM 90 tabs 3RF G47.00 - Insomnia, unspecified glipizide ER 2.5 mg PO DAILY 90 tabs 2RF E11.65 - Type 2 diabetes mellitus with hyperglycemia metoprolol succinate ER 100 mg PO DAILY 90 tabs 3RF
== END 2024-04-04 11:57 | disposition home or self-care (01) ==
PROVIDERS: PCP Internal Medicine
DX: I12.9 Hypertensive chronic kidney disease with stage 1 through stage 4 chronic kidney disease, or unspecified chronic kidney disease (principal); N18.31 Chronic kidney disease, stage 3a; C67.9 Malignant neoplasm of bladder, unspecified; E11.65 Type 2 diabetes mellitus with hyperglycemia; E66.3 Overweight; E78.00 Pure hypercholesterolemia, unspecified; K21.9 Gastro-esophageal reflux disease without esophagitis

== ENCOUNTER 2024-05-31 08:49 | Outpatient (REF) | payer OTHER, SELFPAY ==
--- OUTSIDE RECORDS SUMMARY | 2024-05-31 09:18 | XMS_ITS ---
Author Organization [facility] Address [address] [place] [address] Care Team Providers Care Pharmaceutical Analyst Name Role Phone Po Concepción CELAYA Primary Care Provider Diego Aguayo Jr REASON FOR VISIT screening,change in bowels Encounters Encounter Location Date Provider Diagnosis [facility] Out[address] [place], [place] [id number] 12/23/2022 Diego Almeida Jr Change in bowel habit R19.4 and Diarrhea R19.7 ASSESSMENTS Encounter Date Diagnosis Assessment Notes Treatment Notes Treatment Clinical Notes 12/23/2022 Change in bowel habit (ICD-10 - R19.4) 12/23/2022 Diarrhea (ICD-10 - R19.7) PLAN OF TREATMENT No Information
--- OUTSIDE RECORDS SUMMARY | 2024-05-31 09:18 | XMS_ITS | Patient Health Record ---
Author Organization [facility] Address [address] [place] [address] Care Team Providers Care Engine Inspector Name Role Phone Concepción Oh MD Primary Care Provider Diego Aguayo Jr Unavailable ALLERGIES Allergen (clinical drug ingredient) Drug/Non Drug Allergy documented on EMR Reaction Allergy Type Onset Date Status tamsulosin Tamsulosin Unknown Drug Allergy Activ e pioglitazone Pioglitazone Unknown Drug Allergy A ctive ciprofloxacin Ciprofloxacin Unknown Drug Allergy Active empagliflozin Jardiance Unknown Drug Allergy Act stacia REASON FOR REFERRAL No Information MEDICATIONS Medication [...] status, unspecified pancreatitis type (K85.90) Active confirmed [id number] Problem Change in bowel movement (R19.8) Active confirmed [id number] PLAN OF TREATMENT Future Test Test Name Order Date COLONOSCOPY 11/06/2022 Insurance Providers Payer Name Payer Address Payer Phone Subscriber Number Group Number Insured Name Patient Relationship to Insured Coverage Start Date Coverage End Date [facility] [place] [address] Attn Claims HENRY Perry [id number] ZAKI OLIVEROS Self - patient is the insured MEDICAID OF [facility] [address] [place] [phone] [id number] ZAKI OLIVEROS Self - patient is the insured MEDICAL (GENERAL) HISTORY Medical History History ICD Code Colonoscopy 2016, normal, ten-year follo wup diabetes mellitus with neuropathy hypertension Bladder cancer GERD lumbar spondylosis Hyperlipidemia Elevated BMI Prostate cancer Surgical History Surgery Date(Month/Year) hernia repair 2011 cholecystectomy appendectomy prostate surgery due to cancer 2018
--- OUTSIDE RECORDS SUMMARY | 2024-05-31 09:18 | XMS_ITS ---
Author Organization [facility] Address [address] [place] [address] Care Team Providers Care Car Head Liner Installer Name Role Phone Po Concepción CELAYA Primary Care Provider Diego Aguayo Jr REASON FOR VISIT pathology Encounters Encounter Location Date Provider Diagnosis [facility] [address] [place] [address] 12/26/2022 Diego Almeida Jr PLAN OF TREATMENT No Information
[2024-05-31 10:38] LABS: Anion Gap 13 (12-20); Blood Urea Nitrogen 26 mg/dL (9-16); Carbon Dioxide 24 mmol/L (22-29); Chloride 111 mmol/L (96-108); Estimated Glomerular Filt Rate 33; Potassium 4.9 mmol/L (3.3-5.1); Sodium 143 mmol/L (135-145)
== END 2024-05-31 08:50 | disposition home or self-care (01) ==
LOC: HO.LAB 08:49
PROVIDERS: PCP Internal Medicine; Visit Provider Internal Medicine Nephrology
DX: N18.31 Chronic kidney disease, stage 3a (principal)
CPT/HCPCS: 36415; 80051; 82565; 84520

== ENCOUNTER 2024-06-15 10:49 | Outpatient (AMB) | payer OTHER, SELFPAY ==
--- NOTE | 2024-06-15 10:53 | HO.NEPHOV_ITS ---
Vital Signs 06/15/24 10:55 Height 5 ft 9 in Weight 200 lb BMI 29.5 BP 140/70 H Blood Pressure Location Lt brachial Position Sitting Pulse 67 Pulse Source Pulse Oximeter Pulse Oximetry (%) 96 Oxygen Delivery Method Room Air Intake Visit Reasons: CKD-Conf Energy Efficiency Finance Manager Required: Yes Energy Efficiency Finance Manager Language: [employer] Weaver Services: Energy Efficiency Finance Manager Offered & Declined ([facility] solderer dipper services refused) Accompanied by: Significant Other Allergies ciprofloxacin [CIPROFLOXACIN] Allergy (Unknown, Verified 06/15/24 10:54) RASH, anaphylaxis pioglitazone Allergy (Unknown, Verified 06/15/24 10:54) Swelling tamsulosin Allergy (Unknown, Verified 06/15/24 10:54) rash? HPI Comments Details: Mr. Brewster was seen in follow up for his chronic kidney disease. He is a diabetic. His last hemoglobin A1c was 7.1. He is hypertensive and has been on medications. He has history of prostate cancer. He was thought to have diabetic nephropathy. He has been overweight, but improving. He denies any coronary artery disease, congestive heart failure, carotid stenosis, CVA, CHF, PUD or SHYLA. He denies taking excessive nonsteroidal anti-inflammatory medications. He denies chest pain, shortness of breath, proximal nocturnal dyspnea, orthopnea, pedal edema or orthostatic symptoms. He is on Jardiance now. He had a renal biopsy which showed some focal and segmental changes along with diabetic nephropathy changes. He had a CT which showed A 1.5 cm right mid pole renal lesion [facility] Medical History Prostate CA Chronic diarrhea Overweight (BMI 25.0-29.9) Diabetic neuropathy Hypertension Urinary bladder cancer Obesity (BMI 30-39.9) Hypercholesterolemia GERD (gastroesophageal reflux disease) Lumbar spondylosis Type 2 diabetes mellitus with hyperglycemia Surgical History Hx of hernia repair History of prostate surgery History of colonoscopy History of cholecystectomy History of appendectomy Family History Father Diabetes Myocardial infarct Mother No problems noted. Maternal Grandmother Stomach cancer Maternal Uncle Cancer Social History Housing: Apartment Alcohol intake: never Patient Tobacco Use Status: Never used Tobacco Tobacco use type: Cigarette e-Cigarette/Vaping Use: Never Used Second Hand Smoke Exposure: No service: No Current occupational status: disabled Cognitive needs: No Hearing needs: No Vision needs: Yes Review of Systems Const All systems reviewed & are unremarkable except as noted in HPI and below Physical Exam Vital Signs: Last Vital Signs Pulse 67 06/15/24 10:55 BP 140/70 H 06/15/24 10:55 Pulse Ox 96 06/15/24 10:55 Oxygen Delivery Method Room Air 06/15/24 10:55 BMI result Body Mass Index 29.5 Const General: comfortable and no acute distress Orientation/consciousness: patient oriented x3 HEENT Head: Yes normocephalic Mouth: Normal oral and palatal mucosa present Eyes EOM: EOMs intact bilaterally Neck Neck: Yes supple Resp Auscultation: clear to auscultation bilaterally Cardio Jugular venous distension: no JVD Rate: regular rate GI Palpation (GI): Soft to palpation Auscultation: normal bowel sounds General: Yes no CVA tenderness Back/Spine/Pelvis Back: no CVA tenderness Skin General skin exam: no rashes or lesions noted Neuro General: patient oriented x3 and moves all extremities Extrem General: Yes no pedal edema Results Reviewed Nephrology Results: Sodium 143 mmol/L (135-145) 05/31/24 Potassium 4.9 mmol/L (3.3-5.1) 05/31/24 Chloride 111 mmol/L (96-108) H 05/31/24 Carbon Dioxide 24 mmol/L (22-29) 05/31/24 BUN 26 mg/dL (9-16) H 05/31/24 Creatinine 2.00 mg/dL (0.5-1.4) H 05/31/24 Assessment & Plan Assessment & Plan (1) CKD (chronic kidney disease) stage 3, GFR 30-59 ml/min: Code(s): N18.30 - Chronic kidney disease, stage 3 unspecified Category: Medical Qualifiers: Chronic kidney disease stage 3 subtype: stage 3a (GFR 45-59) Qualified Code(s): N18.31 - Chronic kidney disease, stage 3a (2) Hypertension: Code(s): I10 - Essential (primary) hypertension Category: Medical Qualifiers: Hypertension type: essential hypertension Qualified Code(s): I10 - Essential (primary) hypertension Plan Mr. 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 He needs to lose weight. His urine output is good. He has had prostate cancer and is followed up by Dr. Stark. He should continue Jardiance 10 mg and he can continue enalaprii 2.5 mg daily. He should avoid nonsteroidal anti-inflammatory medications, maintain good hydration and cut back salt in the diet. I did not make any other medication changes at this visit. All his and his 's questions were answered. Follow-up given Orders: Orders Creatinine 3 Months I10 - Essential (primary) hypertension, N18.31 - Chronic kidney disease, stage 3a Blood Urea Nitrogen 3 Months I10 - Essential (primary) hypertension, N18.31 - Chronic kidney disease, stage 3a Electrolytes 3 Months I10 - Essential (primary) hypertension, N18.31 - Chronic kidney disease, stage 3a Coding Level of Care Code Est Pt Level 4 (00260) Diagnoses Stage 3a chronic kidney disease N18.31 Chronic kidney disease stage 3 subtype: stage 3a (GFR 45-59) Essential hypertension I10 Hypertension type: essential hypertension
[2024-06-15 10:55] VITALS: BP 140/70; PULSE 67; O2SAT 96; BMI 29.5
--- OUTSIDE RECORDS SUMMARY | 2024-06-15 12:57 | XMS_ITS ---
Author Organization [facility] Address [address] [place] [address] Care Team Providers Care Diver Assistant Name Role Phone Concepción Oh MD Primary Care Provider Diego Aguayo Jr REASON FOR VISIT screening,change in bowels Encounters Encounter Location Date Provider Diagnosis [facility] Outpatient [address] [place], [place] [id number] 12/23/2022 Diego Almeida Jr Change in bowel habit R19.4 and Diarrhea R19.7 Assessments Encounter Date Diagnosis (ICD Code) Assessment Notes Treatment Notes Treatment Clinical Notes Section Notes 12/23/2022 Change in bowel habit (ICD-10 - R19.4) 12/23/2022 Diarrhea (ICD-10 - R19.7) Plan Of Treatment No Information Progress Notes * ZAKI OLIVEROSDO B:1955 (69 yo M)Acc No.[id number]:12/23/2022 COLON WITH MAC Patient:?STEPHANIESHIRA LONDON Ishmael DICK Provider:?Diego Almeida MD :1955???Age:67 Y???Sex:Male Miguel A e:12/23/2022 Address:[address] [place] [address] Pcp:Concepción Oh MD Subjective: * Chief Complaints: * ???1. Screening,change in alexi wels. * Medical History:? Objective: * Vitals:? Assessment: * Assessment: 1.?Change in bowel habit - R 19.4 (Primary)???2.?Diarrhea - R19.7??? Plan: * Treatment: * Procedure Codes:?77559 COLON OSCOPY AND BIOPSY * * The named appointment provid er may or may not be the originator of this progress note, and it is not deemed complete until electronically signed by the appointment provider. Sign off status: Pending * Provider:?Diego Almeida MD Date:?0 12/23/2022 Generated for Marcus naik/Ana M/Chavezitting on:?06/15/2024 12:57 PM EST
--- OUTSIDE RECORDS SUMMARY | 2024-06-15 12:57 | XMS_ITS | Patient Health Record ---
Author Organization [facility] Address [address] [place] [address] Care Team Providers Care Small Order Cutter Name Role Phone Concepción Oh MD Primary Care Provider Diego Aguayo Jr Unavailable [phone] Allergies Allergen (clinical drug ingredient) Drug/Non Drug Allergy documented on EMR Reaction Allergy Type Onset Date Status tamsulosin Tamsulosin Unknown Drug Allergy Activ e pioglitazone Pioglitazone Unknown Drug Allergy A ctive ciprofloxacin Ciprofloxacin Unknown Drug Allergy Active empagliflozin Jardiance Unknown Drug Allergy Act stacia Reason For Referral No Information Medications Medication SIG (Take, Route, Frequency, Duration) Notes [...] a day for 30 day(s) 11/06/2022 Active Immunizations Vaccine Route Administration Date Status Comme nts Influenza Unknown 02/26/2017 Administered Social History Tobacco Use: Social History Observation Description Date Details (start date - stop date) Never Smoker NA - NA Tobacco Use/Smoking Question Answer Notes Patient is a nonsmoker Alcohol Screen Question Answer Notes Did you have a drink containing alcohol in the p ast year? No Points 0 Interpretation Negative Problems Problem Type SNOMED Code ICD Code Onset Dates Problem Status W/U Status Risk Notes Problem [id number] Acute pancreatitis, unspecified complication status, unspecified pancreatitis type (K85.90) Active confirmed Problem [id number] Change in bowel movement (R19.8) Active confirmed Plan Of Treatment Future Test Test Name Order Date COLONOSCOPY 11/06/2022 Insurance Providers Payer Name Payer Address Payer Phone Subscriber Number Group Number Insured Name Patient Relationship to Insured Coverage Start Date Coverage End Date [facility] [address] Attn Claims HENRY [place] [id number] ZAKI OLIVEROS Self - patient is the insured MEDICAID OF [facility] [address] [place] [phone] [id number] ZAKI OLIVEROS Self - patient is the insured Medical (General) History Medical History History ICD Code Colonoscopy 2016, normal, ten-year follo wup diabetes mellitus with neuropathy hypertension Bladder cancer GERD lumbar spondylosis Hyperlipidemia Elevated BMI Prostate cancer Surgical History Surgery Date(Month/Year) hernia repair 2011 cholecystectomy appendectomy prostate surgery due to cancer 2017
--- OUTSIDE RECORDS SUMMARY | 2024-06-15 12:57 | XMS_ITS ---
Author Organization [facility] Address [address] [place] [address] Care Team Providers Care Lumpia Wrapper Maker Name Role Phone Concepción Oh MD Primary Care Provider Diego Aguayo Jr REASON FOR VISIT pathology Encounters Encounter Location Date Provider Diagnosis [facility] [address] [place] [address] 12/26/2022 Diego Almeida Jr Plan Of Treatment No Information Progress Notes * ZAKI OLIVEROSDO B:1955 (67 yo M)Acc No.[id number]:12/26/2022 Patient:?Ishmael OLIVEROS :1955???Age:67 Y???Sex:Male Address:[address] [place] [address], [place], [address] * true * Date:? Generated for Ignaciai heena/Ana M/eTransmitting on:?06/15/2024 12:57 PM EST
== END 2024-06-15 11:08 | disposition home or self-care (01) ==
PROVIDERS: PCP Internal Medicine; Visit Provider Internal Medicine Nephrology
DX: N18.31 Chronic kidney disease, stage 3a (principal); I10 Essential (primary) hypertension
CPT/HCPCS: 99214

== ENCOUNTER → 2024-06-15 10:49 | Outpatient (BNVA) | payer OTHER, SELFPAY | PROVIDERS: PCP Internal Medicine; Visit Provider Internal Medicine Nephrology | DX: I12.9 Hypertensive chronic kidney disease with stage 1 through stage 4 chronic kidney disease, or unspecified chronic kidney disease (principal); N18.31 Chronic kidney disease, stage 3a | CPT/HCPCS: 99212 ==

== ENCOUNTER 2024-07-14 09:13 | Outpatient (AMB) | payer OTHER, SELFPAY ==
[2024-07-14 09:29] VITALS: BP 148/76; PULSE 78; O2SAT 98; BMI 29.5
--- NOTE | 2024-07-14 09:29 | MHC.PC.OV ---
Vital Signs 07/14/24 09:29 Height 5 ft 9 in Weight 200 lb BMI 29.5 BP 148/76 H Blood Pressure Location Lt brachial Position Sitting Pulse 78 Pulse Source Pulse Oximeter Pulse Oximetry (%) 98 Oxygen Delivery Method Room Air Intake Visit Reasons: f/u DM Allergies ciprofloxacin [CIPROFLOXACIN] Allergy (Unknown, Verified 07/14/24 09:30) RASH, anaphylaxis pioglitazone Allergy (Unknown, Verified 07/14/24 09:30) Swelling tamsulosin Allergy (Unknown, Verified 07/14/24 09:30) rash? Medication List - Last Reconciled 07/14/24 by Concepción Oh MD acetaminophen (Tylenol Extra Strength) 500 mg PO QID PRN atorvastatin 20 mg PO QPM cyanocobalamin (vitamin B-12) 1,000 mcg sublingual DAILY cyclobenzaprine 10 mg PO TID PRN diclofenac sodium 1% (Voltaren Arthritis Pain) 4 grams topical QID dulaglutide (Trulicity) 3 mg (0.5 mL) subcut QWEEK empagliflozin (Jardiance) 10 mg PO DAILY enalapril maleate 2.5 mg PO DAILY gabapentin 100 mg PO BEDTIME glipizide ER 2.5 mg PO DAILY hydroxyzine HCl 25 mg PO BID PRN lidocaine 5% (Lidoderm) 1 patch topical DAILY metoprolol succinate ER 100 mg PO DAILY omeprazole 20 mg PO DAILY oxycodone 5 mg PO Q6H PRN pen needle, diabetic (BD Ultra-Fine Mini Pen Needle) As directed triamcinolone acetonide 0.5% 1 appl topical BID Tobacco use date assessed: 07/14/24 Fall risk assessment: No Falls in past year Last assessed Fall Risk: 07/14/24 Dental Screening Dental Screen Date: 07/14/24 Did you have a dental visit in the last 12 months?: Yes Did you have a dental problem in the last 6 months where you did not have access to dental care?: No Was dental information given to patient?: Patient has dentist HPI f/u DM HPI Details BP at home is good PFSH Medical History Prostate CA Chronic diarrhea Overweight (BMI 25.0-29.9) Diabetic neuropathy Hypertension Urinary bladder cancer Obesity (BMI 30-39.9) Hypercholesterolemia GERD (gastroesophageal reflux disease) Lumbar spondylosis Type 2 diabetes mellitus with hyperglycemia Surgical History Hx of hernia repair History of prostate surgery History of colonoscopy History of cholecystectomy History of appendectomy Family History Father Diabetes Myocardial infarct Mother No problems noted. Maternal Grandmother Stomach cancer Maternal Uncle Cancer Social History Housing: Apartment Alcohol intake: never Patient Tobacco Use Status: Never used Tobacco Tobacco use type: Cigarette e-Cigarette/Vaping Use: Never Used Second Hand Smoke Exposure: No service: No Current occupational status: disabled Cognitive needs: No Hearing needs: No Vision needs: Yes Questionnaire PHQ-9 Over the last 2 weeks, how often have you been bothered by any of the following problems? 1. Little interest or pleasure in doing things: not at all 2. Feeling down, depressed, or hopeless: not at all 3. Trouble falling or staying asleep, or sleeping too much: not at all 4. Feeling tired or having little energy: not at all 5. Poor appetite or overeating: not at all 6. Feeling bad about yourself - or that you are a failure or have let yourself or your family down: not at all 7. Trouble concentrating on things, such as reading the newspaper or watching television: not at all 8. Moving or speaking so slowly that other people could have noticed. Or the opposite - being so fidgety or restless that you have been moving around a lot more than usual: not at all 9. Thoughts that you would be better off or of hurting yourself in some way: not at all Total score: 0 Depression Screening Interpretation: Negative Depression Screening Done: Yes 38679 - PHQ-9 Billing: Yes Source: Developed by Drs. Yosi Melchor, Radha Laura, Shivam Mcnally and colleagues, with an educational jamar from [employer]. Thrive Questionnaire Date Thrive assessed: 07/14/24 I am a: Patient What is your living situation today?: I have a steady place to live Within the past 12 months, did the food you bought not last and you didn't have the money to get more?: Never true Within the past 12 months, did you worry whether your food would run out before you got money to buy more?: Never true Do you have trouble paying for medicines?: No Do you have trouble getting transportation to medical appointments?: No Do you have trouble paying your heating and electricity bill?: No Do you have trouble taking care of your child, family member or friend?: No Do you have trouble with day-to-day activities such as bathing, preparing meals, shopping, managing finances, etc.?: No Are you currently unemployed and looking for a job?: No Are you interested in more education?: No Please select the resources that you would like help with: None Currently or been in a relationship where the following occur: No concerns reported THRIVE Score: 0 AUDIT C Alcohol Use Questionnaire (AUDIT-C) 1. How often do you have a drink containing alcohol?: Never 3. How often do you have six or more drinks on one occasion?: Never Total Score: 0 Score Reviewed/Action Taken: No MADELINE-7 AMB Questionnaire MADELINE-7 Date MADELINE - 7 assessed: 07/14/24 Feeling nervous, anxious, or on edge: 0 = Not at all Not being able to stop or control worryin = Not at all Worrying too much about different things: 0 = Not at all Trouble relaxin = Not at all Being so restless that it is hard to sit still: 0 = Not at all Becoming easily annoyed or irritable: 0 = Not at all Feeling afraid as if something awful might happen: 0 = Not at all Total MADELINE-7 score (0-4 normal; 5-9 mild; 10-14 moderate; 15-21 severe): 0 Source: Developed by Drs. Yosi Melchor, Radha Laura, Shivam Mcnally and colleagues, with an educational jamar from [employer]. MADELINE-7 Assessment Billing MADELINE-7 Assessment Tool: MADELINE-7 Assessment 75478 Physical exam (Primary Care) Vital Signs: Last Vital Signs Pulse 78 07/14/24 09:29 BP 148/76 H 07/14/24 09:29 Pulse Ox 98 07/14/24 09:29 Oxygen Delivery Method Room Air 07/14/24 09:29 BMI result Body Mass Index 29.5 Tobacco/Smoking Status: Tobacco use Status Tobacco use date assessed 07/14/24 07/14/24 09:31 Patient Tobacco Use Status Never used Tobacco 07/14/24 09:31 Tobacco use type Cigarette 07/14/24 09:31 e-Cigarette/Vaping Use Never Used 07/14/24 09:31 PHQ-9: PHQ-9 Score PHQ-9: Total score 0 07/14/24 09:45 Depression Screening Interpretation: Negative Thrive Assessment: Date of Thrive Assessment Date Thrive assessed 07/14/24 07/14/24 09:31 Currently or been in a relationship where the following occur: No concerns reported Const General: alert; No acute distress Eyes Conjunctivae: conjunctivae normal Resp Auscultation: clear to auscultation bilaterally Cardio Rate: regular rate Rhythm: regular rhythm GI Inspection: Yes normal to inspection Extrem General: Yes normal to inspection and No edema Results AMB Hemoglobin A1c AMB Hemoglobin A1c 6.4 % Last Edit by Elin Gutierrez CMA on 07/14/24 09:46 Results Reviewed Results Reviewed: Laboratory Last Values Hgb A1c (Clinic) 6.4 % (4.0-6.0) H 07/14/24 09:45 Coding Level of Care Code Est Pt Level 4 (96486) Complex EM visit Add On G2211 Diagnoses Type 2 diabetes mellitus with hyperglycemia, without long-term current use of insulin E11.65 Diabetes mellitus long term care social worker insulin use: without long term care social worker use Gastroesophageal reflux disease without esophagitis K21.9 Esophagitis presence: without esophagitis Hypercholesterolemia E78.00 Urinary bladder cancer C67.9 Essential hypertension I10 Hypertension type: essential hypertension Overweight (BMI 25.0-29.9) E66.3 BPH loc w urin obs/LUTS N40.1 Stage 3a chronic kidney disease N18.31 Chronic kidney disease stage 3 subtype: stage 3a (GFR 45-59) Anemia D64.9 Skin cancer C44.90 Pruritus L29.9 Additional Codes MADELINE-7 Assessment Billing - MADELINE-7 Assessment Tool: MADELINE-7 Assessment 33540 ([id number]) PHQ-9 - 62824 - PHQ-9 Billing: Yes ([id number]) Assessment & Plan Assessment & Plan (1) Type 2 diabetes mellitus with hyperglycemia: Comment: Eye and lasik Code(s): E11.65 - Type 2 diabetes mellitus with hyperglycemia Category: Medical Qualifiers: Diabetes mellitus long term care social worker insulin use: without long term care social worker use Qualified Code(s): E11.65 - Type 2 diabetes mellitus with hyperglycemia Plan: Decrease the amount of carbohydrate intake, pasta, bread, rice and potatoes are all sugar and that is aside from all the sweet stuff, remember that fruits are good but they are Sweet also. Hemoglobin A1c goal of less than 7.0. Patient on Trulicity, Jardiance, glipizide 2.5 mg once a day . (2) GERD (gastroesophageal reflux disease): Code(s): K21.9 - Gastro-esophageal reflux disease without esophagitis Category: Medical Qualifiers: Esophagitis presence: without esophagitis Qualified Code(s): K21.9 - Gastro-esophageal reflux disease without esophagitis Plan: Avoid the foods that causes that usually spicy foods, tomato products, juices, coffee, soda and foods that your sensitive to. After eating do not lie down, allow 3-4 hours before in lie down. And keep the head of bed above 30 degrees to avoid the acid from going up. (3) Hypercholesterolemia: Code(s): E78.00 - Pure hypercholesterolemia, unspecified Category: Medical Plan: Avoid fried foods, chicken skin, eggs, butter margarine, pastries and meat. Be it pork or beef they have a lot of cholesterol Patricia last test LDL goal of less than 100 and triglyceride of less than 150 patient on atorvastatin 20 mg once a day (4) Urinary bladder cancer: Comment: November 2017 Dr. Stark Code(s): C67.9 - Malignant neoplasm of bladder, unspecified Category: Medical Plan: Continue to follow-up with urology (5) Hypertension: Code(s): I10 - Essential (primary) hypertension Category: Medical Qualifiers: Hypertension type: essential hypertension Qualified Code(s): I10 - Essential (primary) hypertension Plan: Continue with blood pressure medication. Decrease salt intake and exercise patient on enalapril 2.5 mg once a day metoprolol 100 mg once a day (6) Overweight (BMI 25.0-29.9): Code(s): E66.3 - Overweight Category: Medical Plan: Continue with diet and exercise (7) BPH loc w urin obs/LUTS: Code(s): N40.1 - Benign prostatic hyperplasia with lower urinary tract symptoms Category: Medical Plan: Stable (8) CKD (chronic kidney disease) stage 3, GFR 30-59 ml/min: Code(s): N18.30 - Chronic kidney disease, stage 3 unspecified Category: Medical Qualifiers: Chronic kidney disease stage 3 subtype: stage 3a (GFR 45-59) Qualified Code(s): N18.31 - Chronic kidney disease, stage 3a (9) Anemia: Code(s): D64.9 - Anemia, unspecified Category: Medical (10) Skin cancer: Code(s): C44.90 - Unspecified malignant neoplasm of skin, unspecified Category: Medical (11) Pruritus: Code(s): L29.9 - Pruritus, unspecified Category: Medical Plan History of Present Illness The patient is an 69 year old male presenting with her known chronic medical conditions for follow-up. She has a history of diabetes mellitus type 2 complicated by renal involvement, currently being managed with medications including Jardiance, Enalapril, Trulicity, and Glipizide. Her hemoglobin A1c was noted to be 6.4. She has chronic kidney disease, stage 3, with a creatinine level of 2.0 and a glomerular filtration rate (GFR) of 33, last measured in May 2022. The patient also has reported intermittent anemia with hemoglobin of 12.7. She has a history of GERD managed with lifestyle modifications and medications, and hypercholesterolemia; her last cholesterol test in December showed an LDL level of 83. Her hypertension is managed with oral medications including Enalapril and Metoprolol. The last blood pressure reading during the visit was 146 mmHg. She was previously diagnosed with benign prostatic hyperplasia and had urinary bladder cancer in 2018. Post-cholecystectomy, she experiences diarrhea, believed to be related to the absence of the gallbladder. Health Maintenance - Hemoglobin A1c is maintained at 6.4% under current diabetes management. - Recent cholesterol management shows LDL at 83, with a goal of keeping LDL under 100 mg/dL. - Blood pressure slightly elevated, management goal is to stay under 140/90 mmHg. - Routine check-ups with nephrology for chronic kidney disease. - Urology follow-up planned for previous history of bladder cancer. - Dermatology referral process initiated for skin concerns. - Recommendations for avoiding medications that can affect renal function, such as NSAIDs. Social History - Regular exercise and diet management reported. - Patient follows a low-fat diet due to diarrhea post-cholecystectomy. - Reports eating a lot of fish as part of dietary management. - No reported issues with alcohol or smoking. - Activities possibly limited; patient tends to be careful and follows doctor's advice. Review of Systems - Gastrointestinal: Reports diarrhea due to lack of gallbladder. - Cardiovascular: Denies experiencing significant hypertension symptoms at home. - Skin: Reports itchiness but currently managed; plans to enhance this through dermatology consultation. Physical Exam Results - Labs: Hemoglobin 12.7, Hemoglobin A1c 6.4%, Creatinine 2.0, GFR 33, LDL 83. - Tests last noted: Blood pressure 146/unknown, improves reportedly below 140 at home. Plan The management plan focuses on continued use of the current glycemic control medications, maintaining lifestyle modifications and medication adherence for blood pressure control, and monitoring renal function closely with ongoing specialist involvement. The patient should continue the atorvastatin for cholesterol management, and I advised dermatology and urology follow-ups for skin and urological health, respectively. It remains crucial to ensure all medications are renal-friendly to avoid aggravating chronic kidney disease. I emphasized the importance of reporting any unexpected hypoglycemia and suggested constant adherence to low-fat dietary measures to manage gastrointestinal symptoms. Patient was informed and verbally consented to the use of an ambient scribe for clinic note documentation during this visit. Discussion Notes I explained to the patient that her diabetes management is controlled, reinforcing the importance of regular follow-ups to ensure stability. I discussed her hypertension and chronic kidney disease extensively, ensuring she understands the importance of avoiding certain medications that could worsen kidney function. We touched upon cholesterol and its successful management with atorvastatin. I reviewed her follow-up appointments with urologists given her history of bladder cancer, emphasizing the importance of consistent check-ups. I discussed dermatological management for her itchiness, reiterating that the initiated consult should provide further assistance. Consent for all treatment plans, including dietary adjustments related to post-cholecystectomy diarrhea, was obtained, ensuring the patient remains informed about her healthcare contributions. Patient Instructions - Continue taking diabetes medications as prescribed and monitor blood sugar levels. - Regularly take antihypertensive medications to maintain blood pressure within goal range. - Maintain a low-fat diet to manage diarrhea and avoid processed fats. - Monitor kidney function regularly and avoid NSAIDs. - Follow up with neurologist and urologist as planned. - Use prescribed medications for cholesterol monitoring with continued lifestyle modifications. - Consult with dermatology for further skin evaluation and itchiness management. - Report any new, unexplained symptoms or side effects from medications promptly. Orders: Orders AMB Hemoglobin A1c Today Z13.9 - Encounter for screening, unspecified Referrals Urology Referral C67.9 - Malignant neoplasm of bladder, unspecified Dermatology Referral C44.90 - Unspecified malignant neoplasm of skin, unspecified, L21.9 - Seborrheic dermatitis, unspecified Medications: New hydroxyzine HCl 25 mg PO BID PRN 60 tabs 0RF itching L29.9 - Pruritus, unspecified
--- OUTSIDE RECORDS SUMMARY | 2024-07-14 09:31 | XMS_ITS | Patient Health Record ---
Author Organization [facility] Address [address] [place] [address] Care Team Providers Care Massage Operator Name Role Phone Concepción Oh MD Primary Care Provider Diego Aguayo Jr Unavailable Allergies Allergen (clinical drug ingredient) Drug/Non Drug [...] Problem Status W/U Status Risk Notes Problem [id number] Acute pancreatitis, unspecified complication status, unspecified pancreatitis type (K85.90) Active confirmed Problem [id number] Change in bowel movement (R19.8) Active confirmed Plan Of Treatment Future Test Test Name Order Date COLONOSCOPY 11/06/2022 Insurance Providers Payer Name Payer Address Payer Phone Subscriber Number Group Number Insured Name Patient Relationship to Insured Coverage Start Date Coverage End Date [facility] [address] Attn Claims [place] [id number] ZAKI OLIVEROS Self - patient is the insured MEDICAID OF [facility] [employer] [employer] [address] [place] [phone] [id number] ZAKI OLIVEROS Self - patient is the insured Medical (General) History Medical History History ICD Code Colonoscopy 2016, normal, ten-year follo wup diabetes mellitus with neuropathy hypertension Bladder cancer GERD lumbar spondylosis Hyperlipidemia Elevated BMI Prostate cancer Surgical History Surgery Date(Month/Year) hernia repair 2011 cholecystectomy appendectomy prostate surgery due to cancer 2017
== END 2024-07-14 10:22 | disposition home or self-care (01) ==
LOC: HO.HMCH 09:13
PROVIDERS: PCP Internal Medicine; Visit Provider Internal Medicine
DX: E11.65 Type 2 diabetes mellitus with hyperglycemia (principal); K21.9 Gastro-esophageal reflux disease without esophagitis; E78.00 Pure hypercholesterolemia, unspecified; C67.9 Malignant neoplasm of bladder, unspecified; I10 Essential (primary) hypertension; E66.3 Overweight; N40.1 Benign prostatic hyperplasia with lower urinary tract symptoms; N18.31 Chronic kidney disease, stage 3a; D64.9 Anemia, unspecified; C44.90 Unspecified malignant neoplasm of skin, unspecified; L29.9 Pruritus, unspecified; Z13.9 Encounter for screening, unspecified

== ENCOUNTER → 2024-07-14 09:13 | Outpatient (BNVA) | payer OTHER, SELFPAY | PROVIDERS: PCP Internal Medicine; Visit Provider Internal Medicine | DX: E11.65 Type 2 diabetes mellitus with hyperglycemia (principal); E11.22 Type 2 diabetes mellitus with diabetic chronic kidney disease; I12.9 Hypertensive chronic kidney disease with stage 1 through stage 4 chronic kidney disease, or unspecified chronic kidney disease; N18.31 Chronic kidney disease, stage 3a; D63.1 Anemia in chronic kidney disease; K21.9 Gastro-esophageal reflux disease without esophagitis; E78.00 Pure hypercholesterolemia, unspecified; C67.9 Malignant neoplasm of bladder, unspecified; N40.1 Benign prostatic hyperplasia with lower urinary tract symptoms; E66.3 Overweight; C44.90 Unspecified malignant neoplasm of skin, unspecified; L29.9 Pruritus, unspecified; Z68.29 Body mass index [BMI] 29.0-29.9, adult | CPT/HCPCS: 83036; 96127; 99212 ==

== ENCOUNTER 2024-09-26 08:32 | Outpatient (REF) | payer OTHER, SELFPAY ==
--- OUTSIDE RECORDS SUMMARY | 2024-09-26 08:59 | XMS_ITS | Patient Health Record ---
Author Organization [facility] Address [address] [place] [address] Care Team Providers Care Apiculturist Name Role Phone Concepción Oh MD Primary Care Provider Diego Aguayo Jr Unavailable [phone] Allergies Allergen (clinical drug ingredient) Drug/Non [...] Problem Status W/U Status Risk Notes Problem [id number] Acute pancreatitis, unspecified complication status, unspecified pancreatitis type (K85.90) Active confirmed Problem [id number] Change in bowel movement (R19.8) Active confirmed Plan Of Treatment Future Test Test Name Order Date COLONOSCOPY 11/06/2022 Insurance Providers Payer Name Payer Address Payer Phone Subscriber Number Group Number Insured Name Patient Relationship to Insured Coverage Start Date Coverage End Date [facility] [address] Attn Claims [place] [id number] ZAKI OLIVEROS Self - patient is the insured MEDICAID [facility] [address] [place] [phone] [id number] ZAKI OLIVEROS Self - patient is the insured Medical (General) History Medical History History ICD Code Colonoscopy 2016, normal, ten-year follo wup diabetes mellitus with neuropathy hypertension Bladder cancer GERD lumbar spondylosis Hyperlipidemia Elevated BMI Prostate cancer Surgical History Surgery Date(Month/Year) hernia repair 2011 cholecystectomy appendectomy prostate surgery due to cancer 2017
[2024-09-26 09:33] LABS: Anion Gap 10 (12-20); Blood Urea Nitrogen 28 mg/dL (9-16); Carbon Dioxide 26 mmol/L (22-29); Chloride 109 mmol/L (96-108); Estimated Glomerular Filt Rate 37; Potassium 4.4 mmol/L (3.3-5.1); Sodium 141 mmol/L (135-145)
== END 2024-09-26 08:33 | disposition home or self-care (01) ==
LOC: HO.LAB 08:32
PROVIDERS: PCP Internal Medicine; Visit Provider Internal Medicine Nephrology
DX: I12.9 Hypertensive chronic kidney disease with stage 1 through stage 4 chronic kidney disease, or unspecified chronic kidney disease (principal); N18.31 Chronic kidney disease, stage 3a
CPT/HCPCS: 36415; 80051; 82565; 84520

== ENCOUNTER 2024-10-07 11:38 | Outpatient (AMB) | payer OTHER, SELFPAY ==
--- NOTE | 2024-10-07 11:37 | HO.NEPHOV_ITS ---
Vital Signs 10/07/24 11:38 Height 5 ft 9 in Weight 200 lb 6 oz BMI 29.6 BP 120/70 Blood Pressure Location Lt brachial Position Sitting Pulse 68 Pulse Source Pulse Oximeter Pulse Oximetry (%) 98 Oxygen Delivery Method Room Air Intake Visit Reasons: 3 MO FU-Conf w/ Pharmaceutical Specialty Representative Required: No Accompanied by: Spouse Allergies ciprofloxacin (CIPROFLOXACIN) Allergy (Unknown, Verified 10/07/24 11:41) RASH, anaphylaxis pioglitazone Allergy (Unknown, Verified 10/07/24 11:41) Swelling tamsulosin Allergy (Unknown, Verified 10/07/24 11:41) rash? Do you need a note to return to daycare/school/sports/work: No HPI Comments Details: Mr. Brewster was seen in follow up for his chronic kidney disease. He is a diabetic. His last hemoglobin A1c has improved . He is hypertensive and has been on medications. He has history of prostate cancer. He was thought to have diabetic nephropathy. He has been overweight, but improving. He denies any coronary artery disease, congestive heart failure, carotid stenosis, CVA, CHF, PUD or SHYLA. He denies taking excessive nonsteroidal anti-inflammatory medications. He denies chest pain, shortness of breath, proximal nocturnal dyspnea, orthopnea, pedal edema or orthostatic symptoms. He is on Jardiance now . He had a renal biopsy which showed some focal and segmental changes along with diabetic nephropathy changes. He had a CT which showed A 1.5 cm right mid pole renal lesion [facility] Medical History Prostate CA Chronic diarrhea Overweight (BMI 25.0-29.9) Diabetic neuropathy Hypertension Urinary bladder cancer Obesity (BMI 30-39.9) Hypercholesterolemia GERD (gastroesophageal reflux disease) Lumbar spondylosis Type 2 diabetes mellitus with hyperglycemia Surgical History Hx of hernia repair History of prostate surgery History of colonoscopy History of cholecystectomy History of appendectomy Family History Father Diabetes Myocardial infarct Mother No problems noted. Maternal Grandmother Stomach cancer Maternal Uncle Cancer Social History Housing: Apartment Alcohol intake: never Patient Tobacco Use Status: Never used Tobacco Tobacco use type: Cigarette e-Cigarette/Vaping Use: Never Used Second Hand Smoke Exposure: No service: No Current occupational status: disabled Cognitive needs: No Hearing needs: No Vision needs: Yes Review of Systems Const All systems reviewed & are unremarkable except as noted in HPI and below Physical Exam Vital Signs: Last Vital Signs Pulse 68 10/07/24 11:38 BP 120/70 10/07/24 11:38 Pulse Ox 98 10/07/24 11:38 Oxygen Delivery Method Room Air 10/07/24 11:38 BMI result Body Mass Index 29.6 Const General: comfortable and no acute distress Orientation/consciousness: patient oriented x3 HEENT Head: Yes normocephalic Mouth: Normal oral and palatal mucosa present Eyes EOM: EOMs intact bilaterally Neck Neck: Yes supple Resp Auscultation: clear to auscultation bilaterally Cardio Jugular venous distension: no JVD Rate: regular rate GI Palpation (GI): Soft to palpation Auscultation: normal bowel sounds General: Yes no CVA tenderness Back/Spine/Pelvis Back: no CVA tenderness Skin General skin exam: no rashes or lesions noted Neuro General: patient oriented x3 and moves all extremities Extrem General: Yes no pedal edema Results Reviewed Nephrology Results: Sodium, (135-145) 141 mmol/L 09/26/24 Potassium, (3.3-5.1) 4.4 mmol/L 09/26/24 Chloride, (96-108) 109 mmol/L H 09/26/24 Carbon Dioxide, (22-29) 26 mmol/L 09/26/24 BUN, (9-16) 28 mg/dL H 09/26/24 Creatinine, (0.5-1.4) 1.82 mg/dL H 09/26/24 Urine Protein, (Neg-Trace) 30 (1+) mg/dL H 04/04/24 Urine Creatinine 107.74 mg/dL 04/04/24 Protein/Creatinin Ratio, (<0.2) 0.17 03/01/24 Renal US 04/15/23 Assessment & Plan Assessment & Plan (1) Hypertension: Code(s): I10 - Essential (primary) hypertension Category: Medical Qualifiers: Hypertension type: essential hypertension Qualified Code(s): I10 - Essential (primary) hypertension (2) CKD (chronic kidney disease) stage 3, GFR 30-59 ml/min: Code(s): N18.30 - Chronic kidney disease, stage 3 unspecified Category: Medical Qualifiers: Chronic kidney disease stage 3 subtype: stage 3a (GFR 45-59) Qualified Code(s): N18.31 - Chronic kidney disease, stage 3a (3) Diabetic nephropathy: Code(s): E11.21 - Type 2 diabetes mellitus with diabetic nephropathy Category: Medical Qualifiers: Diabetes mellitus type: type 2 Qualified Code(s): E11. - Type 2 diabetes mellitus with diabetic nephropathy Plan Mr. 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 He needs to lose weight. His urine output is good. He has had prostate cancer and is followed up by Dr. Stark. He should continue Jardiance 10 mg and he can continue enalapril 2.5 mg daily. He should avoid nonsteroidal anti-inflammatory medications, maintain good hydration and cut back salt in the diet. I did not make any other medication changes at this visit. All his and his 's questions were answered. Follow-up given Orders: Orders Creatinine 3 Months E11. - Type 2 diabetes mellitus with diabetic nephropathy, I10 - Essential (primary) hypertension, N18.31 - Chronic kidney disease, stage 3a Electrolytes 3 Months E11.21 - Type 2 diabetes mellitus with diabetic nephropathy, I10 - Essential (primary) hypertension, N18.31 - Chronic kidney disease, stage 3a Blood Urea Nitrogen 3 Months E11.21 - Type 2 diabetes mellitus with diabetic nephropathy, I10 - Essential (primary) hypertension, N18.31 - Chronic kidney disease, stage 3a Coding Level of Care Code Est Pt Level 4 (31455) Diagnoses Essential hypertension I10 Hypertension type: essential hypertension Stage 3a chronic kidney disease N18.31 Chronic kidney disease stage 3 subtype: stage 3a (GFR 45-59) Diabetic nephropathy associated with type 2 diabetes mellitus E11. Diabetes mellitus type: type 2
[2024-10-07 11:38] VITALS: BP 120/70; PULSE 68; O2SAT 98; BMI 29.6
--- OUTSIDE RECORDS SUMMARY | 2024-10-07 12:50 | XMS_ITS | Patient Health Record ---
Author Organization [facility] Address [address] [place] [address] Care Team Providers Care [employer] Marble Installer Name Role Phone Concepción Oh MD Primary [...] Problem Status W/U Status Risk Notes Problem [id number] Acute pancreatitis, unspecified complication status, unspecified pancreatitis type (K85.90) Active confirmed Problem [id number] Change in bowel movement (R19.8) Active confirmed Plan Of Treatment Future Test Test Name Order Date COLONOSCOPY 11/06/2022 Insurance Providers Payer Name Payer Address Payer Phone Subscriber Number Group Number Insured Name Patient Relationship to Insured Coverage Start Date Coverage End Date [facility] [place] [address] Attn Claims HENRY [place] [id number] ZAKI OLIVEROS Self - patient is the insured [facility] [address] [place] [phone] [id number] ZAKI OLIVEROS Self - patient is the insured Medical (General) History Medical History History ICD Code Colonoscopy 2016, normal, ten-year follo wup diabetes mellitus with neuropathy hypertension Bladder cancer GERD lumbar spondylosis Hyperlipidemia Elevated BMI Prostate cancer Surgical History Surgery Date(Month/Year) hernia repair 2011 cholecystectomy appendectomy prostate surgery due to cancer 2017
== END 2024-10-07 11:58 | disposition home or self-care (01) ==
LOC: HO.HKA 11:39
PROVIDERS: PCP Internal Medicine; Visit Provider Internal Medicine Nephrology
DX: I10 Essential (primary) hypertension (principal); N18.31 Chronic kidney disease, stage 3a; E11.21 Type 2 diabetes mellitus with diabetic nephropathy
CPT/HCPCS: 99214

== ENCOUNTER → 2024-10-07 11:38 | Outpatient (BNVA) | payer OTHER, SELFPAY | PROVIDERS: PCP Internal Medicine; Visit Provider Internal Medicine Nephrology | DX: I10 Essential (primary) hypertension (principal); E11.65 Type 2 diabetes mellitus with hyperglycemia; E11.21 Type 2 diabetes mellitus with diabetic nephropathy; E11.40 Type 2 diabetes mellitus with diabetic neuropathy, unspecified; N18.31 Chronic kidney disease, stage 3a | CPT/HCPCS: 99212 ==

== ENCOUNTER 2024-11-02 10:07 | Outpatient (REF) | payer OTHER, SELFPAY ==
--- NOTE | ~2024-11-02 | XR_ITS ---
EXAMINATION: XR ELBOW, RIGHT CLINICAL INFORMATION: M25.521 - Pain in right elbow COMPARISON: None available. TECHNIQUE: AP, lateral, and oblique views of the right elbow. FINDINGS: No acute cortical disruption or malalignment. Well-corticated calcifications in the soft tissues superior to the lateral epicondyles. Small exostosis in the olecranon. No joint effusion. No lytic or blastic lesions. XR/XR elbow RT min 3V IMPRESSION: Mild degenerative changes. Probable enthesopathy, triceps tendon. Electronically signed by: Arnol Tran MD 11/02/2024 11:18 AM EDT
== END 2024-11-02 10:08 | disposition home or self-care (01) ==
LOC: HO.XRAY 10:07
PROVIDERS: PCP Internal Medicine; Visit Provider Internal Medicine
DX: E11.65 Type 2 diabetes mellitus with hyperglycemia (principal); E66.9 Obesity, unspecified; Z68.30 Body mass index [BMI] 30.0-30.9, adult; K21.9 Gastro-esophageal reflux disease without esophagitis; E78.00 Pure hypercholesterolemia, unspecified; I12.9 Hypertensive chronic kidney disease with stage 1 through stage 4 chronic kidney disease, or unspecified chronic kidney disease; N18.31 Chronic kidney disease, stage 3a; D64.9 Anemia, unspecified; C67.9 Malignant neoplasm of bladder, unspecified; L30.9 Dermatitis, unspecified; M25.521 Pain in right elbow; Z79.899 Other long term (current) drug therapy
CPT/HCPCS: 73080; 83036; 96127; 99212

== ENCOUNTER 2024-11-02 10:07 | Outpatient (AMB) | payer OTHER, SELFPAY ==
[2024-11-02 10:10] VITALS: BP 140/64; PULSE 78; RESP 18; TEMP 36.3; O2SAT 97
--- NOTE | 2024-11-02 10:10 | A.OFFPC_ITS ---
Vital Signs 11/02/24 10:10 11/02/24 10:41 Height 5 ft 9 in Weight 203 lb BMI 30.0 BP 140/64 H 130/70 Blood Pressure Location Lt brachial Lt brachial Position Sitting Sitting Respiration 18 Pulse 78 Pulse Source Pulse Oximeter Temp 97.3 F Temp Source Temporal Artery Scan Pulse Oximetry (%) 97 Oxygen Delivery Method Room Air Intake Visit Reasons: 3 month f/u- A1C Accompanied by: Spouse Allergies ciprofloxacin (CIPROFLOXACIN) Allergy (Unknown, Verified 11/02/24 10:14) RASH, anaphylaxis pioglitazone Allergy (Unknown, Verified 11/02/24 10:14) Swelling tamsulosin Allergy (Unknown, Verified 11/02/24 10:14) rash? Medication List - Last Reconciled 11/02/24 by Concepción Oh MD acetaminophen (Tylenol Extra Strength) 500 mg PO QID PRN atorvastatin 20 mg PO QPM blood sugar diagnostic As directed- daily ONE TOUCH VERIO check BS once a day blood-glucose meter As directed cyanocobalamin (vitamin B-12) 1,000 mcg sublingual DAILY cyclobenzaprine 10 mg PO TID PRN diclofenac sodium 1% (Voltaren Arthritis Pain) 4 grams topical QID dulaglutide (Trulicity) 3 mg (0.5 mL) subcut QWEEK empagliflozin (Jardiance) 10 mg PO DAILY enalapril maleate 2.5 mg PO DAILY gabapentin 100 mg PO BEDTIME glipizide ER 2.5 mg PO DAILY hydroxyzine HCl 25 mg PO BID PRN lidocaine 5% (Lidoderm) 1 patch topical DAILY metoprolol succinate ER 100 mg PO DAILY omeprazole 20 mg PO DAILY pen needle, diabetic (BD Ultra-Fine Mini Pen Needle) As directed triamcinolone acetonide 0.5% 1 appl topical BID Tobacco use date assessed: 11/02/24 Fall risk assessment: No Falls in past year Last assessed Fall Risk: 11/02/24 Dental Screening Dental Screen Date: 11/02/24 Did you have a dental visit in the last 12 months?: Yes Did you have a dental problem in the last 6 months where you did not have access to dental care?: No Was dental information given to patient?: Patient has dentist [facility] Medical History Prostate CA Chronic diarrhea Overweight (BMI 25.0-29.9) Diabetic neuropathy Hypertension Urinary bladder cancer Obesity (BMI 30-39.9) Hypercholesterolemia GERD (gastroesophageal reflux disease) Lumbar spondylosis Type 2 diabetes mellitus with hyperglycemia Surgical History (Reviewed 11/02/24 @ 10:14 by Vicki Vargas [facility]) Hx of hernia repair History of prostate surgery History of colonoscopy History of cholecystectomy History of appendectomy Family History (Reviewed 11/02/24 @ 10:14 by Vicki Vargas [facility]) Father Diabetes Myocardial infarct Mother No problems noted. Maternal Grandmother Stomach cancer Maternal Uncle Cancer Social History (Reviewed 11/02/24 @ 10:14 by Vicki Vargas [facility]) Housing: Apartment Alcohol intake: never Patient Tobacco Use Status: Never used Tobacco Tobacco use type: Cigarette e-Cigarette/Vaping Use: Never Used Second Hand Smoke Exposure: No service: No Current occupational status: disabled Cognitive needs: No Hearing needs: No Vision needs: Yes Questionnaire PHQ-9 Over the last 2 weeks, how often have you been bothered by any of the following problems? 1. Little interest or pleasure in doing things: not at all 2. Feeling down, depressed, or hopeless: not at all 3. Trouble falling or staying asleep, or sleeping too much: not at all 4. Feeling tired or having little energy: not at all 5. Poor appetite or overeating: not at all 6. Feeling bad about yourself - or that you are a failure or have let yourself or your family down: not at all 7. Trouble concentrating on things, such as reading the newspaper or watching television: not at all 8. Moving or speaking so slowly that other people could have noticed. Or the opposite - being so fidgety or restless that you have been moving around a lot more than usual: not at all 9. Thoughts that you would be better off or of hurting yourself in some way: not at all Total score: 0 Depression Screening Interpretation: Negative Depression Screening Done: Yes Source: Developed by Drs. Yosi Melchor, Radha Laura, Shivam Mcnally and colleagues, with an educational jamar from [employer]. Thrive Questionnaire Date Thrive assessed: 07/14/24 I am a: Patient What is your living situation today?: I have a steady place to live Within the past 12 months, did the food you bought not last and you didn't have the money to get more?: Never true Within the past 12 months, did you worry whether your food would run out before you got money to buy more?: Never true Do you have trouble paying for medicines?: No Do you have trouble getting transportation to medical appointments?: No Do you have trouble paying your heating and electricity bill?: No Do you have trouble taking care of your child, family member or friend?: No Do you have trouble with day-to-day activities such as bathing, preparing meals, shopping, managing finances, etc.?: No Are you currently unemployed and looking for a job?: No Are you interested in more education?: No Please select the resources that you would like help with: None Currently or been in a relationship where the following occur: No concerns reported THRIVE Score: 0 AUDIT C Alcohol Use Questionnaire (AUDIT-C) 1. How often do you have a drink containing alcohol?: Never 3. How often do you have six or more drinks on one occasion?: Never Total Score: 0 MADELINE-7 AMB Questionnaire MADELINE-7 Date MADELINE - 7 assessed: 07/14/24 Feeling nervous, anxious, or on edge: 0 = Not at all Not being able to stop or control worryin = Not at all Worrying too much about different things: 0 = Not at all Trouble relaxin = Not at all Being so restless that it is hard to sit still: 0 = Not at all Becoming easily annoyed or irritable: 0 = Not at all Feeling afraid as if something awful might happen: 0 = Not at all Total MADELINE-7 score (0-4 normal; 5-9 mild; 10-14 moderate; 15-21 severe): 0 Source: Developed by Drs. Yosi Melchor, Radha Laura, Shivam Mcnally and colleagues, with an educational jamar from [employer]. Physical exam (Primary Care) Vital Signs: Last Vital Signs Temp 97.3 F 11/02/24 10:10 Pulse 78 11/02/24 10:10 Resp 18 11/02/24 10:10 BP 130/70 11/02/24 10:41 Pulse Ox 97 11/02/24 10:10 Oxygen Delivery Method Room Air 11/02/24 10:10 BMI result Body Mass Index 30.0 Tobacco/Smoking Status: Tobacco use Status Tobacco use date assessed 11/02/24 11/02/24 10:16 Patient Tobacco Use Status Never used Tobacco 11/02/24 10:16 Tobacco use type Cigarette 11/02/24 10:16 e-Cigarette/Vaping Use Never Used 11/02/24 10:16 PHQ-9: PHQ-9 Score PHQ-9: Total score 0 11/02/24 10:38 Depression Screening Interpretation: Negative Thrive Assessment: Date of Thrive Assessment Date Thrive assessed 07/14/24 11/02/24 10:16 Currently or been in a relationship where the following occur: No concerns reported Const General: alert; No acute distress Eyes Conjunctivae: conjunctivae normal Resp Auscultation: clear to auscultation bilaterally Cardio Rate: regular rate Rhythm: regular rhythm GI Inspection: Yes normal to inspection Extrem General: Yes normal to inspection and No edema Results AMB Hemoglobin A1c AMB Hemoglobin A1c 7.0 % Last Edit by Vicki Vargas CMA on 11/02/24 10:57 Results Reviewed Results Reviewed: Laboratory Last Values Hgb A1c (Clinic) 7.0 % (4.0-6.0) H 11/02/24 10:16 Coding Level of Care Code Est Pt Level 4 (30190) Complex EM visit Add On G2211 Diagnoses Type 2 diabetes mellitus with hyperglycemia, without long-term current use of insulin E11.65 Diabetes mellitus long term care social worker insulin use: without longterm use Obesity (BMI 30-39.9) E66.9 Gastroesophageal reflux disease without esophagitis K21.9 Esophagitis presence: without esophagitis Hypercholesterolemia E78.00 Essential hypertension I10 Hypertension type: essential hypertension Stage 3a chronic kidney disease N18.31 Chronic kidney disease stage 3 subtype: stage 3a (GFR 45-59) Anemia D64.9 Urinary bladder cancer C67.9 Eczema L30.9 Right elbow pain M25.521 Assessment & Plan Assessment & Plan (1) Type 2 diabetes mellitus with hyperglycemia: Comment: Eye and lasik Code(s): E11.65 - Type 2 diabetes mellitus with hyperglycemia Category: Medical Qualifiers: Diabetes mellitus long term care social worker insulin use: without longterm use Qualified Code(s): E11.65 - Type 2 diabetes mellitus with hyperglycemia Plan: Decrease the amount of carbohydrate intake, pasta, bread, rice and potatoes are all sugar and that is aside from all the sweet stuff, remember that fruits are good but they are Sweet also. Hemoglobin A1c goal of less than 7.0 patient is on Trulicity 3 mg once a day Jardiance 10 mg once a day glipizide 2.5 mg once a day (2) Obesity (BMI 30-39.9): Code(s): E66.9 - Obesity, unspecified Category: Medical Plan: Diet and exercise (3) GERD (gastroesophageal reflux disease): Code(s): K21.9 - Gastro-esophageal reflux disease without esophagitis Category: Medical Qualifiers: Esophagitis presence: without esophagitis Qualified Code(s): K21.9 - Gastro-esophageal reflux disease without esophagitis Plan: Avoid the foods that causes that usually spicy foods, tomato products, juices, coffee, soda and foods that your sensitive to. After eating do not lie down, allow 3-4 hours before in lie down. And keep the head of bed above 30 degrees to avoid the acid from going up. (4) Hypercholesterolemia: Code(s): E78.00 - Pure hypercholesterolemia, unspecified Category: Medical Plan: Avoid fried foods, chicken skin, eggs, butter margarine, pastries and meat. Be it pork or beef they have a lot of cholesterol LDL goal of less than 100 and triglyceride of less than 150 patient is on atorvastatin 20 mg once a day (5) Hypertension: Code(s): I10 - Essential (primary) hypertension Category: Medical Qualifiers: Hypertension type: essential hypertension Qualified Code(s): I10 - Essential (primary) hypertension Plan: Continue with blood pressure medication. Decrease salt intake and exercise patient is on enalapril 2.5 mg once a day metoprolol 100 mg once a day (6) CKD (chronic kidney disease) stage 3, GFR 30-59 ml/min: Code(s): N18.30 - Chronic kidney disease, stage 3 unspecified Category: Medical Qualifiers: Chronic kidney disease stage 3 subtype: stage 3a (GFR 45-59) Qualified Code(s): N18.31 - Chronic kidney disease, stage 3a Plan: Patient follows up with Nephrology chronic kidney disease secondary to diabetic nephropathy and FSGS. Avoid NSAIDs weight loss is important, blood pressure control (7) Anemia: Code(s): D64.9 - Anemia, unspecified Category: Medical Plan: Continuing to monitor. Stable (8) Urinary bladder cancer: Comment: November 2017 Dr. Stark Code(s): C67.9 - Malignant neoplasm of bladder, unspecified Category: Medical Plan: Continue to follow-up with urology (9) Eczema: Comment: R arm and R posterior leg Code(s): L30.9 - Dermatitis, unspecified Category: Medical (10) Right elbow pain: Code(s): M25.521 - Pain in right elbow Category: Medical Plan History of Present Illness The patient is a 69-year-old male presenting for a follow-up visit to manage multiple chronic conditions, including diabetes mellitus and chronic kidney disease. The patient has a history of diabetes mellitus, which is currently managed with Trulicity, Jardiance, and glipizide. His hemoglobin A1c is targeted to be less than 7.0, and recent measurements have shown it to be at 7.0, indicating a need for better glycemic control. The patient has been advised to improve dietary habits and increase physical activity, although adherence has been challenging. The patient was diagnosed with chronic kidney disease stage 3, attributed to diabetic nephropathy and focal segmental glomerulosclerosis (FSGS). Renal function tests show a creatinine level of 1.82, and the patient has been advised to avoid NSAIDs and maintain hydration. The patient is under nephrology care and continues to monitor renal function closely. The patient has a history of urinary bladder cancer diagnosed in 2018, with no recent recurrence noted. He also has benign prostatic hyperplasia (BPH) and hypertension, managed with enalapril and metoprolol. The patient reports a recent rash diagnosed as eczema, for which topical treatment has been prescribed. He has been advised to apply the cream twice daily for one to two weeks and to maintain regular use of lotion to prevent skin dryness. Health Maintenance - Colonoscopy last performed in December 2022 - Blood work scheduled for three months from now - Shingles vaccination discussed, patient previously vaccinated Social History - Exercise: Patient has exercise equipment at home but reports limited use. - Diet: Patient advised to improve dietary habits, currently struggles with adherence. Review of Systems - Dermatological: Reports rash on body, diagnosed as eczema. - Musculoskeletal: Reports joint pain, particularly in the elbow. Physical Exam - Cardiovascular: Blood pressure measured at 130/70 mmHg Results - Labs: Hemoglobin A1c at 7.0, creatinine level at 1.82, stable anemia, normal platelet and white blood cell counts, normal electrolytes. - Cholesterol: LDL measured at 83 in December 2023. Plan The patient will continue management of diabetes mellitus with Trulicity, Jardiance, and glipizide, aiming to maintain hemoglobin A1c below 7.0. Dietary modifications and increased physical activity are recommended to aid in glycemic control and weight management. For chronic kidney disease, the patient is advised to avoid NSAIDs, maintain hydration, and continue follow-up with nephrology. Renal function will be monitored closely, with a focus on maintaining stable creatinine levels. The patient will apply prescribed topical treatment for eczema twice daily for one to two weeks and maintain regular use of lotion to prevent skin dryness. Blood pressure management will continue with enalapril and metoprolol, with regular monitoring to ensure control. Preventative care includes scheduling blood work in three months and ensuring vaccinations are up to date. Patient was informed and verbally consented to the use of an ambient scribe for clinic note documentation during this visit. Discussion Notes During the visit, I discussed with the patient the importance of managing diabetes mellitus through medication adherence and lifestyle changes, emphasizing the need for dietary improvements and increased physical activity. We reviewed the management of chronic kidney disease, highlighting the avoidance of NSAIDs and the importance of hydration. I also addressed the treatment plan for eczema, advising on the use of topical cream and regular moisturizing. Preventative care measures, including upcoming blood work and vaccination status, were also discussed. Patient Instructions - Continue taking diabetes medications as prescribed: Trulicity, Jardiance, and glipizide. - Follow dietary recommendations and increase physical activity to help control blood sugar and manage weight. - Avoid NSAIDs and stay hydrated to protect kidney function. - Apply the prescribed cream for eczema twice daily for one to two weeks and use lotion regularly. - Monitor blood pressure regularly and continue taking enalapril and metoprolol as prescribed. - Schedule blood work in three months and ensure vaccinations are up to date. Orders: Orders Complete Blood Count Auto Diff 3 Months E11. - Type 2 diabetes mellitus with hyperglycemia Free T4 (Free Thyroxine) 3 Months . - Type 2 diabetes mellitus with hyperglycemia Thyroid Stimulating Hormone 3 Months . - Type 2 diabetes mellitus with hyperglycemia Lipid Panel 3 Months E11. - Type 2 diabetes mellitus with hyperglycemia, E78.00 - Pure hypercholesterolemia, unspecified Microalbumin, Random (w Creat) 3 Months .65 - Type 2 diabetes mellitus with hyperglycemia Vitamin B12 and Folate 3 Months E11.65 - Type 2 diabetes mellitus with hyperglycemia Magnesium 3 Months E11.65 - Type 2 diabetes mellitus with hyperglycemia AMB Hemoglobin A1c Today Z13.9 - Encounter for screening, unspecified Comprehensive Met. Panel 3 Months E11.65 - Type 2 diabetes mellitus with hyperglycemia Hemoglobin A1c 3 Months E11.65 - Type 2 diabetes mellitus with hyperglycemia Ferritin 3 Months E11.65 - Type 2 diabetes mellitus with hyperglycemia Reticulocyte Count 3 Months E11.65 - Type 2 diabetes mellitus with hyperglycemia Prostate Specific Antigen Scr 3 Months E11.65 - Type 2 diabetes mellitus with hyperglycemia Creatinine Urine 3 Months E11.65 - Type 2 diabetes mellitus with hyperglycemia Vitamin D 25-OH Total 3 Months E11.65 - Type 2 diabetes mellitus with hyperglyc emia Medications: Changed From blood sugar diagnostic As directed- daily 100 ea 0RF E11.65 - Type 2 diabetes mellitus with hyperglycemia To blood sugar diagnostic As directed- daily ONE TOUCH VERIO check BS once a day 100 ea 3RF E11.65 - Type 2 diabetes mellitus with hyperglycemia From empagliflozin (Jardiance) 10 mg PO DAILY 90 tabs 2RF M25.521 - Pain in right elbow To empagliflozin 25 mg PO DAILY 30 tabs 4RF M25.521 - Pain in right elbow Refilled triamcinolone acetonide 0.5% 1 appl topical BID 45 grams 0RF L23.9 - Allergic contact dermatitis, unspecified cause
[2024-11-02 10:41] VITALS: BP 130/70
--- OUTSIDE RECORDS SUMMARY | 2024-11-02 11:00 | XMS_ITS | Patient Health Record ---
Author Organization [facility] Address [address] [place] [address] Care Team Providers Care [employer] Name Role Phone Concepción Oh MD Primary [...] Problem Status W/U Status Risk Notes Problem [id number] Acute pancreatitis, unspecified complication status, unspecified pancreatitis type (K85.90) Active confirmed Problem [id number] Change in bowel movement (R19.8) Active confirmed Plan Of Treatment Future Test Test Name Order Date COLONOSCOPY 11/06/2022 Insurance Providers Payer Name Payer Address Payer Phone Subscriber Number Group Number Insured Name Patient Relationship to Insured Coverage Start Date Coverage End Date [facility] [place] [address] Attn Claims HENRY [place] [id number] ZAKI OLIVEROS Self - patient is the insured [facility] [address] [place] [id number] [id number] ZAKI OLIVEROS Self - patient is the insured Medical (General) History Medical History History ICD Code Colonoscopy 2016, normal, ten-year follo wup diabetes mellitus with neuropathy hypertension Bladder cancer GERD lumbar spondylosis Hyperlipidemia Elevated BMI Prostate cancer Surgical History Surgery Date(Month/Year) hernia repair 2011 cholecystectomy appendectomy prostate surgery due to cancer 2017
== END 2024-11-02 10:54 | disposition home or self-care (01) ==
LOC: HO.HMCH 10:07
PROVIDERS: PCP Internal Medicine; Visit Provider Internal Medicine
DX: I12.9 Hypertensive chronic kidney disease with stage 1 through stage 4 chronic kidney disease, or unspecified chronic kidney disease (principal); E11.65 Type 2 diabetes mellitus with hyperglycemia; N18.31 Chronic kidney disease, stage 3a; C67.9 Malignant neoplasm of bladder, unspecified; E66.9 Obesity, unspecified; Z68.30 Body mass index [BMI] 30.0-30.9, adult; K21.9 Gastro-esophageal reflux disease without esophagitis; E78.00 Pure hypercholesterolemia, unspecified; D64.9 Anemia, unspecified; L30.9 Dermatitis, unspecified; M25.521 Pain in right elbow

== ENCOUNTER → 2024-11-02 11:07 | Outpatient (BNV) | payer OTHER, SELFPAY | PROVIDERS: PCP Internal Medicine; Visit Provider Radiology Diagnostic Radiology | DX: M25.521 Pain in right elbow (principal) | CPT/HCPCS: 73080 ==

== ENCOUNTER 2024-12-16 12:57 | Outpatient (REF) | payer OTHER, SELFPAY ==
--- OUTSIDE RECORDS SUMMARY | 2024-12-16 13:09 | XMS_ITS | Patient Health Record ---
Author Organization [facility] Address [address] [place] [address] Care Team Providers Care Lead Nitrate Processor Name Role Phone Concepción Oh MD Primary Care Provider Diego Aguayo Jr Unavailable [phone] Allergies Allergen (clinical drug ingredient) Drug/Non Drug [...] Problem Status W/U Status Risk Notes Problem [id number] Acute pancreatitis, unspecified complication status, unspecified pancreatitis type (K85.90) Active confirmed Problem [id number] Change in bowel movement (R19.8) Active confirmed Plan Of Treatment Future Test Test Name Order Date COLONOSCOPY 11/06/2022 Insurance Providers Payer Name Payer Address Payer Phone Subscriber Number Group Number Insured Name Patient Relationship to Insured Coverage Start Date Coverage End Date [facility] [address] Attn Claims HENRY [place] [id number] ZAKI OLIVEROS Self - patient is the insured [facility] [address] [place] [phone] [id number] ZAKI OLIVEROS Self - patient is the insured Medical (General) History Medical History History ICD Code Colonoscopy 2016, normal, ten-year follo wup diabetes mellitus with neuropathy hypertension Bladder cancer GERD lumbar spondylosis Hyperlipidemia Elevated BMI Prostate cancer Surgical History Surgery Date(Month/Year) hernia repair 2011 cholecystectomy appendectomy prostate surgery due to cancer 2017
[2024-12-16 13:53] LABS: Anion Gap 11 (12-20); Blood Urea Nitrogen 25 mg/dL (9-16); Carbon Dioxide 28 mmol/L (22-29); Chloride 107 mmol/L (96-108); Estimated Glomerular Filt Rate 37; Potassium 4.3 mmol/L (3.3-5.1); Sodium 142 mmol/L (135-145)
== END 2024-12-16 12:58 | disposition home or self-care (01) ==
LOC: HO.LAB 12:57
PROVIDERS: PCP Internal Medicine; Visit Provider Internal Medicine Nephrology
DX: I12.9 Hypertensive chronic kidney disease with stage 1 through stage 4 chronic kidney disease, or unspecified chronic kidney disease (principal); E11.21 Type 2 diabetes mellitus with diabetic nephropathy; E11.22 Type 2 diabetes mellitus with diabetic chronic kidney disease; N18.31 Chronic kidney disease, stage 3a
CPT/HCPCS: 36415; 80051; 82565; 84520

== ENCOUNTER 2025-01-04 10:27 | Outpatient (AMB) | payer OTHER, SELFPAY ==
--- NOTE | 2025-01-04 10:28 | HO.NEPHOV ---
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 HPI Comments Details: Mr. Brewster was seen in follow up for his chronic kidney disease. He is a diabetic. His last hemoglobin A1c has marginally worsened . He is hypertensive and has been on medications. He has history of prostate cancer. He was thought to have diabetic nephropathy. He has been overweight, but improving. He denies any coronary artery disease, congestive heart failure, carotid stenosis, CVA, CHF, PUD or SHYLA. He denies taking excessive nonsteroidal anti-inflammatory medications. He denies chest pain, shortness of breath, proximal nocturnal dyspnea, orthopnea, pedal edema or orthostatic symptoms. He is on Jardiance now. He had a renal biopsy which showed some focal and segmental changes along with diabetic nephropathy changes. He had a CT which showed A 1.5 cm right mid pole renal lesion [facility] Medical History Prostate CA Chronic diarrhea Overweight (BMI 25.0-29.9) Diabetic neuropathy Hypertension Urinary bladder cancer Obesity (BMI 30-39.9) Hypercholesterolemia GERD (gastroesophageal reflux disease) Lumbar spondylosis Type 2 diabetes mellitus with hyperglycemia Surgical History Hx of hernia repair History of prostate surgery History of colonoscopy History of cholecystectomy History of appendectomy Family History Father Diabetes Myocardial infarct Mother No problems noted. Maternal Grandmother Stomach cancer Maternal Uncle Cancer Social History Housing: Apartment Alcohol intake: never Patient Tobacco Use Status: Never used Tobacco Tobacco use type: Cigarette e-Cigarette/Vaping Use: Never Used Second Hand Smoke Exposure: No service: No Current occupational status: disabled Cognitive needs: No Hearing needs: No Vision needs: Yes Review of Systems Const All systems reviewed & are unremarkable except as noted in HPI and below Physical Exam Vital Signs: Last Vital Signs Pulse 66 01/04/25 10:29 BP 124/70 01/04/25 10:29 Pulse Ox 97 01/04/25 10:29 Oxygen Delivery Method Room Air 01/04/25 10:29 BMI result Body Mass Index 30.0 Const General: comfortable and no acute distress Orientation/consciousness: patient oriented x3 HEENT Head: Yes normocephalic Mouth: Normal oral and palatal mucosa present Eyes EOM: EOMs intact bilaterally Neck Neck: Yes supple Resp Auscultation: clear to auscultation bilaterally Cardio Jugular venous distension: no JVD Rate: regular rate GI Palpation (GI): Soft to palpation Auscultation: normal bowel sounds General: Yes no CVA tenderness Back/Spine/Pelvis Back: no CVA tenderness Skin General skin exam: no rashes or lesions noted Neuro General: patient oriented x3 and moves all extremities Extrem General: Yes no pedal edema Results Reviewed Nephrology Results: Sodium, (135-145) 142 mmol/L 12/16/24 Potassium, (3.3-5.1) 4.3 mmol/L 12/16/24 Chloride, (96-108) 107 mmol/L 12/16/24 Carbon Dioxide, (22-29) 28 mmol/L 12/16/24 BUN, (9-16) 25 mg/dL H 12/16/24 Creatinine, (0.5-1.4) 1.85 mg/dL H 12/16/24 Renal US 04/15/23 Assessment & Plan Assessment & Plan (1) Hypertension: Code(s): I10 - Essential (primary) hypertension Category: Medical Qualifiers: Hypertension type: essential hypertension Qualified Code(s): I10 - Essential (primary) hypertension (2) Diabetic nephropathy: Code(s): E11.21 - Type 2 diabetes mellitus with diabetic nephropathy Category: Medical Qualifiers: Diabetes mellitus type: type 2 Qualified Code(s): E11.21 - Type 2 diabetes mellitus with diabetic nephropathy (3) CKD (chronic kidney disease) stage 3, GFR 30-59 ml/min: Code(s): N18.30 - Chronic kidney disease, stage 3 unspecified Category: Medical Qualifiers: Chronic kidney disease stage 3 subtype: stage 3a (GFR 45-59) Qualified Code(s): N18.31 - Chronic kidney disease, stage 3a Plan Mr. 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 He needs to lose weight. His urine output is good. He has had prostate cancer and is followed up by Dr. Stark. He should continue Jardiance and he current dose of enalapril 2.5 mg daily. He should avoid nonsteroidal anti-inflammatory medications, maintain good hydration and cut back salt in the diet. I did not make any other medication changes at this visit. All his and his 's questions were answered. Follow-up given Orders: Orders [facility] Monitr Crohn's 3 Months E11.21 - Type 2 diabetes mellitus with diabetic nephropathy, I10 - Essential (primary) hypertension, N18.31 - Chronic kidney disease, stage 3a Creatinine 3 Months E11.21 - Type 2 diabetes mellitus with diabetic nephropathy, I10 - Essential (primary) hypertension, N18.31 - Chronic kidney disease, stage 3a Blood Urea Nitrogen 3 Months E11.21 - Type 2 diabetes mellitus with diabetic nephropathy, I10 - Essential (primary) hypertension, N18.31 - Chronic kidney disease, stage 3a Electrolytes 3 Months E11.21 - Type 2 diabetes mellitus with diabetic nephropathy, I10 - Essential (primary) hypertension, N18.31 - Chronic kidney disease, stage 3a Coding Level of Care Code Est Pt Level 4 (04772) Diagnoses Essential hypertension I10 Hypertension type: essential hypertension Diabetic nephropathy associated with type 2 diabetes mellitus E11.21 Diabetes mellitus type: type 2 Stage 3a chronic kidney disease N18.31 Chronic kidney disease stage 3 subtype: stage 3a (GFR 45-59)
[2025-01-04 10:29] VITALS: BP 124/70; PULSE 66; O2SAT 97
--- OUTSIDE RECORDS SUMMARY | 2025-01-04 13:04 | XMS_ITS | Patient Health Record ---
Author Organization [facility] Address [address] [place] [address] Care Team Providers Care Head Start Coordinator Name Role Phone Concepción Oh MD Primary [...] Problem Status W/U Status Risk Notes Problem [id number] Acute pancreatitis, unspecified complication status, unspecified pancreatitis type (K85.90) Active confirmed Problem [id number] Change in bowel movement (R19.8) Active confirmed Plan Of Treatment Future Test Test Name Order Date COLONOSCOPY 11/06/2022 Insurance Providers Payer Name Payer Address Payer Phone Subscriber Number Group Number Insured Name Patient Relationship to Insured Coverage Start Date Coverage End Date [facility] [place] [address] Attn Claims HENRY Perry [id number] ZAKI OLIVEROS Self - patient is the insured [facility] [address] [place] [phone] [id number] ZAKI OLIVEROS Self - patient is the insured Medical (General) History Medical History History ICD Code Colonoscopy 2016, normal, ten-year follo wup diabetes mellitus with neuropathy hypertension Bladder cancer GERD lumbar spondylosis Hyperlipidemia Elevated BMI Prostate cancer Surgical History Surgery Date(Month/Year) hernia repair 2011 cholecystectomy appendectomy prostate surgery due to cancer 2017
== END 2025-01-04 10:55 | disposition home or self-care (01) ==
LOC: HO.HKA 10:27
PROVIDERS: PCP Internal Medicine; Visit Provider Internal Medicine Nephrology
DX: I10 Essential (primary) hypertension (principal); E11.21 Type 2 diabetes mellitus with diabetic nephropathy; N18.31 Chronic kidney disease, stage 3a
CPT/HCPCS: 99214

== ENCOUNTER → 2025-01-04 10:27 | Outpatient (BNVA) | payer OTHER, SELFPAY | PROVIDERS: PCP Internal Medicine; Visit Provider Internal Medicine Nephrology | DX: I10 Essential (primary) hypertension (principal); E11.21 Type 2 diabetes mellitus with diabetic nephropathy; N18.31 Chronic kidney disease, stage 3a | CPT/HCPCS: 99212 ==

== ENCOUNTER 2025-01-27 07:57 | Outpatient (REF) | payer OTHER, SELFPAY ==
--- OUTSIDE RECORDS SUMMARY | 2025-01-27 08:00 | XMS_ITS | Patient Health Record ---
Author Organization [facility] Address [address] [place] [address] Care Team Providers Care Bias Binding Folder Name Role Phone Concepción Oh MD Primary [...] at 5:00 p.m. the day before the procedure; Duration: 1 day 11/06/2022 Active glipiZIDE ER Active Gas Relief Active amLODIPine Besylate 2.5 MG 1 tablet Oral ly Once a day; Duration: 30 day(s) Active Dulcolax 5 MG 1 tablet as needed Orally Once a day; Duration: 30 day(s) Active Loperamide HCl Activ e Enalapril Maleate 20 MG 1 tablet Orally Once a day Active Metoprolol Succinate Active Atorvastatin Calcium 20 MG 1 tablet Oral ly Once a day Active MiraLax (colon prep) 8.3 ounce ((238) grams mixed with Gatorade or Crystal Light orally begin at 5:00 p.m. the day before the procedure; Duration: 1 day 11/07/2022 Active Dulcolax (colon prep) 5 MG take at 3:00 p.m and 7:00p.m. Orally two tablets twice a day for one day; Duration: 1 day 11/07/2022 Active Cholestyramine 4 GM 1 packet mixed with water or non-carbonated drink Orally Once a day; Duration: 30 day(s) 11/06/2022 Active Immunizations Vaccine Route [...] Problem Status W/U Status Risk Notes Problem Acute pancreatitis (466200722) Acute pancreatitis, unspecified complication status, unspecified pancreatitis type (K85.90) Active confirmed Problem Altered bowel function (64170081) Change in bowel movement (R19.8) Active confirmed Plan Of Treatment Future Test Test Name Order Date COLONOSCOPY 11/06/2022 Insurance Providers Payer Name Payer Address Payer Phone Subscriber Number Group Number Insured Name Patient Relationship to Insured Coverage Start Date Coverage End Date [facility] [address] Attn Claims HENRY Perry [id number] ZAKI OLIVEROS Self - patient is the insured MEDICAID OF [facility] [address] [facility] [id number] [id number] ZAKI OLIVEROS Self - patient is the insured Medical (General) History Medical History History ICD Code Colonoscopy 2016, normal, ten-year follo wup diabetes mellitus with neuropathy hypertension Bladder cancer GERD lumbar spondylosis Hyperlipidemia Elevated BMI Prostate cancer Surgical History Surgery Date(Month/Year) hernia repair 2011 cholecystectomy appendectomy prostate surgery due to cancer 2017
[2025-01-27 08:20] LABS: MANUAL DIFF FLAG NO
[2025-01-27 08:47] LABS: Hematocrit 44.9 % (42.0-52.0); Hemoglobin 14.5 g/dl (14.0-18.0); Imm Gran Abs Auto 0.02 X10*3/uL (0.00-0.03); Imm Gran Pct Auto 0.3 % (0.0-0.4); Lymphocytes Absolute Auto 2.1 X10*3/uL (1.2-4.9); Mean Corpuscular HGB Conc 32.3 g/dl (31.0-36.0); Mean Corpuscular Hemoglobin 28.8 pg (27.0-33.0); Mean Corpuscular Volume 89.3 fL (80.0-98.0); NRBC Abs Auto 0.000 X10*3/uL (0.0-0.012); NRBC Pct Auto 0.0 /100WBC (0.0-0.2); Platelet Count 146 X10*3/uL (160-400); Red Blood Count 5.03 X10*6/uL (4.60-5.80); Reticulocytes Absolute 0.053 X10*6/uL (0.026-0.095); White Blood Count 7.5 X10*3/uL (4.8-10.8)
[2025-01-27 09:33] LABS: Alanine Aminotransferase 22 U/L (0-40); Albumin Level 4.6 g/dL (3.5-5.0); Alkaline Phosphatase 104 U/L (39-117); Anion Gap 11 (12-20); Aspartate Amino Transferase 25 U/L (5-37); Blood Urea Nitrogen 28 mg/dL (9-16); Calcium 9.5 mg/dL (8.4-10.2); Carbon Dioxide 26 mmol/L (22-29); Chloride 108 mmol/L (96-108); Cholesterol 157 mg/dL (<200); Estimated Glomerular Filt Rate 36; HDL Cholesterol 43 mg/dL (>40); Magnesium 2.0 mg/dL (1.6-2.6); Potassium 4.5 mmol/L (3.3-5.1); Sodium 140 mmol/L (135-145); Total Protein 7.1 g/dL (6.5-8.0); Triglycerides 126 mg/dL (<150)
[2025-01-27 11:49] LABS: Microalbum/Creatinine Ratio Ur 152.9 ug/mg cr (<30)
[2025-01-27 13:52] LABS: Folate 6.0 ng/mL (> or = 4.0); Vitamin B12 571 pg/mL (200-900)
[2025-01-27 14:03] LABS: Ferritin 42 ng/mL (20-250); Free T4 (Free Thyroxine) 0.86 ng/dL (0.71-1.85); Thyroid Stimulating Hormone 3.17 uIU/mL (0.32-4.0)
== END 2025-01-27 07:58 | disposition home or self-care (01) ==
LOC: HO.LAB 07:57
PROVIDERS: PCP Internal Medicine; Visit Provider Internal Medicine
DX: E11.65 Type 2 diabetes mellitus with hyperglycemia (principal); E78.00 Pure hypercholesterolemia, unspecified; Z12.5 Encounter for screening for malignant neoplasm of prostate; Z13.21 Encounter for screening for nutritional disorder
CPT/HCPCS: 36415; 80053; 80061; 82043; 82306; 82570; 82607; 82728; 82746; 83036; 83735; 84153; 84439; 84443; 85025; 85045

== ENCOUNTER 2025-02-24 09:40 | Outpatient (AMB) | payer OTHER, SELFPAY ==
[2025-02-24 09:44] VITALS: BP 136/70; PULSE 68; O2SAT 97; BMI 29.8
--- NOTE | 2025-02-24 09:44 | A.OFFPC_ITS ---
Vital Signs 02/24/25 09:44 Height 5 ft 9 in Weight 202 lb BMI 29.8 BP 136/70 Blood Pressure Location Lt brachial Position Sitting Pulse 68 Pulse Source Pulse Oximeter Pulse Oximetry (%) 97 Oxygen Delivery Method Room Air Intake Visit Reasons: DM Allergies ciprofloxacin (CIPROFLOXACIN) Allergy (Unknown, Verified 02/24/25 09:45) RASH, anaphylaxis pioglitazone Allergy (Unknown, Verified 02/24/25 09:45) Swelling tamsulosin Allergy (Unknown, Verified 02/24/25 09:45) rash? Medication List - Last Reconciled 02/24/25 by Concepción Oh MD acetaminophen (Tylenol Extra Strength) 500 mg PO QID PRN atorvastatin 20 mg PO QPM blood sugar diagnostic As directed- daily ONE TOUCH VERIO check BS once a day blood-glucose meter As directed cyanocobalamin (vitamin B-12) 1,000 mcg sublingual DAILY cyclobenzaprine 10 mg PO TID PRN diclofenac sodium 1% (Voltaren Arthritis Pain) 4 grams topical QID dulaglutide (Trulicity) 3 mg (0.5 mL) subcut QWEEK empagliflozin 25 mg PO DAILY enalapril maleate 2.5 mg PO DAILY fluticasone propionate 50 mcg/actuation (Flonase Allergy Relief) 2 sprays intranasal DAILY gabapentin 100 mg PO BEDTIME glipizide ER 2.5 mg PO DAILY hydroxyzine HCl 25 mg PO BID PRN lidocaine 5% (Lidoderm) 1 patch topical DAILY metoprolol succinate ER 100 mg PO DAILY omeprazole 20 mg PO DAILY pen needle, diabetic (BD Ultra-Fine Mini Pen Needle) As directed triamcinolone acetonide 0.5% 1 appl topical BID Tobacco use date assessed: 11/02/24 Fall risk assessment: No Falls in past year Last assessed Fall Risk: 02/24/25 Dental Screening Dental Screen Date: 11/02/24 [facility] Medical History Prostate CA Chronic diarrhea Overweight (BMI 25.0-29.9) Diabetic neuropathy Hypertension Urinary bladder cancer Obesity (BMI 30-39.9) Hypercholesterolemia GERD (gastroesophageal reflux disease) Lumbar spondylosis Type 2 diabetes mellitus with hyperglycemia Surgical History Hx of hernia repair History of prostate surgery History of colonoscopy History of cholecystectomy History of appendectomy Family History Father Diabetes Myocardial infarct Mother No problems noted. Maternal Grandmother Stomach cancer Maternal Uncle Cancer Social History Housing: Apartment Alcohol intake: never Patient Tobacco Use Status: Never used Tobacco Tobacco use type: Cigarette e-Cigarette/Vaping Use: Never Used Second Hand Smoke Exposure: No service: No Current occupational status: disabled Cognitive needs: No Hearing needs: No Vision needs: Yes Questionnaire Thrive Questionnaire Date Thrive assessed: 07/14/24 MADELINE-7 AMB Questionnaire MADELINE-7 Date MADELINE - 7 assessed: 07/14/24 Source: Developed by Drs. Yosi Melchor, Radha Laura, Shivam Mcnally and colleagues, with an educational jamar from [employer]. Physical exam (Primary Care) Vital Signs: Last Vital Signs Pulse 68 02/24/25 09:44 BP 136/70 02/24/25 09:44 Pulse Ox 97 02/24/25 09:44 Oxygen Delivery Method Room Air 02/24/25 09:44 BMI result Body Mass Index 29.8 Tobacco/Smoking Status: Tobacco use Status Tobacco use date assessed 11/02/24 02/24/25 09:48 Patient Tobacco Use Status Never used Tobacco 02/24/25 09:48 Tobacco use type Cigarette 02/24/25 09:48 e-Cigarette/Vaping Use Never Used 02/24/25 09:48 Thrive Assessment: Date of Thrive Assessment Date Thrive assessed 07/14/24 02/24/25 09:48 Const General: alert; No acute distress Eyes Conjunctivae: conjunctivae normal Resp Auscultation: clear to auscultation bilaterally Cardio Rate: regular rate Rhythm: regular rhythm GI Inspection: Yes normal to inspection Extrem General: Yes normal to inspection and No edema Coding Level of Care Code Est Pt Level 4 (75456) Complex EM visit Add On G2211 Diagnoses Type 2 diabetes mellitus with hyperglycemia, without long-term current use of insulin E11.65 Diabetes mellitus intermediate project manager insulin use: without jail use Essential hypertension I10 Hypertension type: essential hypertension Hypercholesterolemia E78.00 Overweight (BMI 25.0-29.9) E66.3 Gastroesophageal reflux disease without esophagitis K21.9 Esophagitis presence: without esophagitis Stage 3a chronic kidney disease N18.31 Chronic kidney disease stage 3 subtype: stage 3a (GFR 45-59) Urinary bladder cancer C67.9 Assessment & Plan Assessment & Plan (1) Type 2 diabetes mellitus with hyperglycemia: Comment: Eye and lasik Code(s): E11.65 - Type 2 diabetes mellitus with hyperglycemia Category: Medical Qualifiers: Diabetes mellitus intermediate project manager insulin use: without intermediate project manager use Qualified Code(s): E11.65 - Type 2 diabetes mellitus with hyperglycemia Plan: Decrease the amount of carbohydrate intake, pasta, bread, rice and potatoes are all sugar and that is aside from all the sweet stuff, remember that fruits are good but they are Sweet also. Hemoglobin A1c goal of less than 7.0 preferably lower than 6.5. On Trulicity at 3 mg once a week Jardiance 25 mg once a day glipizide 2.5 mg once a day (2) Hypertension: Code(s): I10 - Essential (primary) hypertension Category: Medical Qualifiers: Hypertension type: essential hypertension Qualified Code(s): I10 - Essential (primary) hypertension Plan: Continue with blood pressure medication. Decrease salt intake and exercise on metoprolol 100 mg once a day enalapril 2.5 mg once a day (3) Hypercholesterolemia: Code(s): E78.00 - Pure hypercholesterolemia, unspecified Category: Medical Plan: Avoid fried foods, chicken skin, eggs, butter margarine, pastries and meat. Be it pork or beef they have a lot of cholesterol LDL goal of less than 100 and triglyceride of less than 150 on atorvastatin 20 mg once a day (4) Overweight (BMI 25.0-29.9): Code(s): E66.3 - Overweight Category: Medical Plan: Diet and exercise (5) GERD (gastroesophageal reflux disease): Code(s): K21.9 - Gastro-esophageal reflux disease without esophagitis Category: Medical Qualifiers: Esophagitis presence: without esophagitis Qualified Code(s): K21.9 - Gastro-esophageal reflux disease without esophagitis Plan: Avoid the foods that causes that usually spicy foods, tomato products, juices, coffee, soda and foods that your sensitive to. After eating do not lie down, allow 3-4 hours before in lie down. And keep the head of bed above 30 degrees to avoid the acid from going up. (6) CKD (chronic kidney disease) stage 3, GFR 30-59 ml/min: Code(s): N18.30 - Chronic kidney disease, stage 3 unspecified Category: Medical Qualifiers: Chronic kidney disease stage 3 subtype: stage 3a (GFR 45-59) Qualified Code(s): N18.31 - Chronic kidney disease, stage 3a Plan: Continue to follow-up with Nephrology avoid NSAIDs, keep well hydrated continue with present medication (7) Urinary bladder cancer: Comment: November 2017 Dr. Stark Code(s): C67.9 - Malignant neoplasm of bladder, unspecified Category: Medical Plan: Continue to follow-up with urology Plan History of Present Illness The patient is a 70-year-old overweight male presenting for a follow-up visit for management of multiple chronic conditions. He has a history of type 2 diabetes mellitus, hypertension, hypercholesterolemia, lumbar spondylosis, GERD, and BPH. He also has a history of urinary bladder cancer from November 2017. 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 His kidney function has been stable with a creatinine of 1.87 on January 27. He is advised to avoid NSAIDs. For his diabetes, his most recent hemoglobin A1c was 6.9%, down from 7.0 previously. He denies any episodes of hypoglycemia with blood sugar readings below 100, stating the lowest it gets is into the 80s or 90s. On January 27, his blood sugar was 170. His last colonoscopy was in December 2022. He had an eye exam in January which showed cataracts but no retinopathy. Recent bloodwork from January 27 showed a normal blood count with resolution of prior anemia, but continued mild thrombocytopenia, which is a chronic issue. His LDL cholesterol was 89. PSA was 2.49, and B12, vitamin D, folic acid, and thyroid levels were all within normal limits. He has a history of arthritis and tendinitis in the elbow, confirmed on an x-ray in October, as well as arthritis in two fingers. He also complains of dry, itchy skin. Health Maintenance - Colonoscopy: Last procedure was in December 2022. - Eye Exam: Patient was seen by an food storeroom clerk in January; he has cataracts but no retinopathy. - Nephrology Follow-up: Seen in December for chronic kidney disease. - Urology Follow-up: Advised to continue follow-up with urology for history of bladder cancer. - Immunizations: Patient has received the two-shot series for shingles and his annual flu shot. - His pneumonia vaccine is up to date, and his tetanus vaccine is due next year. - PSA Screening: PSA level was 2.49. - Lifestyle: Diet and exercise were discussed. - Patient is advised to stay well hydrated. Social History - Exercise: Patient reports he keeps himself active. Review of Systems - Constitutional: Denies symptoms of hypoglycemia. - Respiratory: Denies coughing. - Reports nasal congestion. - Integumentary: Reports dry, itchy skin. - Musculoskeletal: Reports arthritis pain in his elbow and two fingers, which he cannot fully bend. Physical Exam - Cardiovascular: Heart auscultated. - Respiratory: Lungs clear to auscultation with normal breath sounds. Results - Labs (January 27): - Complete Blood Count: Normal with mild thrombocytopenia; no anemia. - Comprehensive Metabolic Panel: Electrolytes good, creatinine 1.87, blood sugar 170. - Hemoglobin A1c: 6.9%. - Liver Function Tests: Normal. - Lipid Panel: LDL 89, HDL 43, triglycerides good. - Other labs: PSA 2.49; magnesium, iron, B12, vitamin D, folic acid, and thyroid all within normal limits. - Imaging: - Elbow X-ray (October): Showed arthritis and tendinitis. Plan Patient was informed and verbally consented to the use of an ambient scribe for clinic note documentation during this visit. 1. Diabetes Mellitus The patient's hemoglobin A1c is 6.9%, which meets the goal of less than 7.0 for his age, though a lower level around 6.5 is preferable. He reports no episodes of significant hypoglycemia, with nadirs around 90 mg/dL. The plan is to continue Trulicity 3 mg once a week, Jardiance 25 mg once a day, and glipizide 2.5 mg once a day. The patient was counseled that improvement in glycemic control through diet and exercise is encouraged to avoid adding more medications. 2. Hypertension The plan is to continue the current blood pressure regimen. Medications include metoprolol 100 mg once a day and enalapril 2.5 mg once a day. 3. Hypercholesterolemia The patient's LDL is 89, which is below the goal of 100, and triglyceride level is good. The plan is to continue atorvastatin 20 mg once a day. 4. Chronic Kidney Disease The patient has stable chronic kidney disease with creatinine at 1.8. He will continue his current medications, including Jardiance and enalapril for renopro tection. The patient was advised to continue follow-up with nephrology, avoid NSAIDs, and maintain good hydration. 5. History Of Bladder Cancer The plan is for the patient to continue follow-up with urology. 6. Arthritis The patient has arthritis in his elbow and fingers. It was explained that this is a ehlf-wpz-fjtc condition that will not go away. For pain management, topical Voltaren gel was recommended as a safe option. Other treatment options, such as orthopedic injections (which can raise blood sugar) and joint replacement for severe cases, were also mentioned. 7. Dry Skin For the patient's complaint of dry, itchy skin, smhr-fuc-zbcysln moisturizers were recommended. Specific suggestions included thick, oily lotions such as Aquaphor or Vaseline. 8. Nasal Congestion The patient uses Flonase for nasal congestion. Instructions were provided on the proper administration technique: blow the nose first, aim the spray while looking down, and avoid lying back after use. Discussion Notes I reviewed the recent lab work with the patient. I informed him that his previous anemia has resolved, and his blood count is now normal, although his mild thrombocytopenia persists but is stable and not at a dangerous level. We discussed his kidney function, noting the creatinine is stable at 1.8, and I reiterated the field cashier's recommendation to stay well-hydrated and avoid NSAIDs. We discussed his diabetes management, noting his A1c is 6.9%. I explained that while this is an acceptable number for his age, a lower value is better, and encouraged him to continue efforts with diet and exercise to prevent the need for additional medication. We also confirmed he is not experiencing significant hypoglycemia on his current regimen. I confirmed his cholesterol is well-managed, with an LDL of 89. We also reviewed the results of his elbow x-ray from October, which showed arthritis and tendinitis, and discussed pain management options including topical Voltaren gel and future interventions like injections or surgery if symptoms worsen. For his complaint of dry, itchy skin, I recommended using aknc-aoc-hjvlvua emollients like Aquaphor or Vaseline. I also provided instructions on the proper use of his Flonase nasal spray for congestion. We reviewed his vaccination status and noted his tetanus is due next year. Patient Instructions - Continue your current medications for diabetes, high blood pressure, and cholesterol as prescribed. - Make sure to drink plenty of water and avoid NSAID pain relievers (like ibuprofen or Advil) to protect your kidneys. - Continue to see your kidney specialist (field cashier) and bladder specialist (urologist) for follow-up care. - For dry, itchy skin, you can use dscr-kkq-tqxeezy thick lotions like Aquaphor or Vaseline. - For your arthritis pain, you can try using Voltaren gel, an oohr-bxw-podgqbm cream you apply to the painful area. - When using your nasal spray for congestion, remember to blow your nose first, look down as you spray, and do not lie back afterward. - Your blood sugar control is acceptable with an A1c of 6.9%, but continue to work on diet and exercise as a lower number would be even better for your health. - Your next Tetanus shot is due next year. Medications: New fluticasone propionate 50 mcg/actuation (Flonase Allergy Relief) administer into each nostril 2 sprays intranasal DAILY 16 grams 3RF
== END 2025-02-24 10:35 | disposition home or self-care (01) ==
LOC: HO.HMCH 09:41
PROVIDERS: PCP Internal Medicine; Visit Provider Internal Medicine
DX: E11.65 Type 2 diabetes mellitus with hyperglycemia (principal); I12.9 Hypertensive chronic kidney disease with stage 1 through stage 4 chronic kidney disease, or unspecified chronic kidney disease; N18.31 Chronic kidney disease, stage 3a; C67.9 Malignant neoplasm of bladder, unspecified; E66.3 Overweight; Z68.29 Body mass index [BMI] 29.0-29.9, adult; E78.00 Pure hypercholesterolemia, unspecified; K21.9 Gastro-esophageal reflux disease without esophagitis

== ENCOUNTER → 2025-02-24 09:40 | Outpatient (BNVA) | payer OTHER, SELFPAY | PROVIDERS: PCP Internal Medicine; Visit Provider Internal Medicine | DX: E11.65 Type 2 diabetes mellitus with hyperglycemia (principal); E11.22 Type 2 diabetes mellitus with diabetic chronic kidney disease; I12.9 Hypertensive chronic kidney disease with stage 1 through stage 4 chronic kidney disease, or unspecified chronic kidney disease; E78.00 Pure hypercholesterolemia, unspecified; E66.3 Overweight; K21.9 Gastro-esophageal reflux disease without esophagitis; N18.31 Chronic kidney disease, stage 3a; C67.9 Malignant neoplasm of bladder, unspecified; M19.022 Primary osteoarthritis, left elbow; M19.021 Primary osteoarthritis, right elbow; M19.042 Primary osteoarthritis, left hand; M19.041 Primary osteoarthritis, right hand; Z68.29 Body mass index [BMI] 29.0-29.9, adult | CPT/HCPCS: 99212 ==

== ENCOUNTER 2025-03-27 08:25 | Outpatient (REF) | payer OTHER, SELFPAY ==
[2025-03-27 09:32] LABS: Anion Gap 12 (12-20); Blood Urea Nitrogen 25 mg/dL (9-16); Carbon Dioxide 26 mmol/L (22-29); Chloride 107 mmol/L (96-108); Estimated Glomerular Filt Rate 34; Potassium 4.2 mmol/L (3.3-5.1); Sodium 141 mmol/L (135-145)
== END 2025-03-27 08:26 | disposition home or self-care (01) ==
LOC: HO.LAB 08:25
PROVIDERS: PCP Internal Medicine; Visit Provider Internal Medicine Nephrology
DX: E11.22 Type 2 diabetes mellitus with diabetic chronic kidney disease (principal); I12.9 Hypertensive chronic kidney disease with stage 1 through stage 4 chronic kidney disease, or unspecified chronic kidney disease; N18.31 Chronic kidney disease, stage 3a
CPT/HCPCS: 36415; 80051; 82397; 82565; 83520; 84520; 86141

== ENCOUNTER 2025-04-05 11:01 | Outpatient (AMB) | payer OTHER, SELFPAY ==
--- OUTSIDE RECORDS SUMMARY | 2025-04-05 11:09 | XMS_ITS | Patient Health Record ---
Author Organization [facility] Address [address] [place] [address] Care Team Providers Care [employer] Professor Name Role Phone Concepción Oh MD Primary Care Provider Diego Aguayo Jr Unavailable Allergies Allergen (clinical drug ingredient) Drug/Non Drug Allergy documented on EMR Reaction Allergy Type Onset Date Status empagliflozin Jardiance Unknown Drug Allergy Act stacia ciprofloxacin Ciprofloxacin Unknown Drug Allergy Active pioglitazone Pioglitazone Unknown Drug Allergy A ctive tamsulosin Tamsulosin Unknown Drug Allergy Activ e Reason For Referral No Information Medications Medication SIG (Take, Route, Frequency, Duration) Notes Start Date End Date Status Dulaglutide Active Fexofenadine HCl Act stacia Cyanocobalamin ER Ac tive Prevalite Active hydrOXYzine HCl Acti ve Ketoconazole Active Omeprazole 20 MG Capsule Delayed Release 1 capsule Orally Once a day Active MiraLax (colon prep) 17 GM/SCOOP Powder mixed with Gatorade or Crystal Light Orally begin at 5:00 p.m. the day before the procedure; Duration: 1 day 11/06/2022 Active glipiZIDE ER Active Gas Relief Active amLODIPine Besylate 2.5 MG Tablet 1 tablet Orally Once a day; Duration: 30 day(s) Active Dulcolax 5 MG Tablet Delayed Release 1 tablet as needed Orally Once a day; Duration: 30 day(s) Active Loperamide HCl Activ e Enalapril Maleate 20 MG Tablet 1 tablet Orally Once a day Active Metoprolol Succinate Active Atorvastatin Calcium 20 MG Tablet 1 tablet Orally Once a day Active MiraLax (colon prep) 8.3 ounce ((238) grams mixed with Gatorade or Crystal Light orally begin at 5:00 p.m. the day before the procedure; Duration: 1 day 11/07/2022 Active Dulcolax (colon prep) 5 MG Tablet Delayed Release take at 3:00 p.m and 7:00p.m. Orally two tablets twice a day for one day; Duration: 1 day 11/07/2022 Active Cholestyramine 4 GM Packet 1 packet mixe d with water or non-carbonated drink Orally Once a day; Duration: 30 day(s) 11/06/2022 Active Immunizations Vaccine Route Administration Date Status Comme nts Influenza Unknown 02/26/2017 Administered Social History Tobacco Use: Social History Observation Description Date Details (start date - stop date) Never Smoker NA - NA Social History Drugs/Alcohol: Social Info Question Answer Notes Alcohol Screen Did you have a drink containing alcohol in the past year? No Points 0 Interpretation Negative Tobacco Use: Social Info Question Answer Notes Tobacco Use/Smoking Patient is a nonsmoker Additional Details Category Social Info Options Details Miscellaneous: Marital status: single Occupation: unemployed Problems Problem Type SNOMED Code ICD Code Onset Dates Problem Status W/U Status Risk Notes Problem Acute pancreatitis (434336630) Acute pancreatitis, unspecified complication status, unspecified pancreatitis type (K85.90) Active confirmed Problem Altered bowel function (71214985) Change in bowel movement (R19.8) Active confirmed Plan Of Treatment Future Test Test Name Order Date COLONOSCOPY 11/06/2022 Insurance Providers Payer Name Payer Address Payer Phone Subscriber Number Group Number Insured Name Patient Relationship to Insured Coverage Start Date Coverage End Date [facility] [address] Attn Claims HENRY [place] [id number] ZAKI OLIVEROS Self - patient is the insured [facility] [address] [place] [id number] ZAKI OLIVEROS Self - patient is the insured Medical (General) History Medical History History ICD Code Colonoscopy 2016, normal, ten-year follo wup diabetes mellitus with neuropathy hypertension Bladder cancer GERD lumbar spondylosis Hyperlipidemia Elevated BMI Prostate cancer Surgical History Surgery Date(Month/Year) hernia repair 2011 cholecystectomy appendectomy prostate surgery due to cancer 2017
[2025-04-05 11:57] VITALS: BP 130/66; PULSE 67; O2SAT 96; BMI 29.8
--- NOTE | 2025-04-05 11:57 | HO.NEPHOV_ITS ---
Vital Signs 04/05/25 11:57 Height 5 ft 9 in Weight 202 lb BMI 29.8 BP 130/66 Blood Pressure Location Lt brachial Position Sitting Pulse 67 Pulse Source Pulse Oximeter Pulse Oximetry (%) 96 Oxygen Delivery Method Room Air Intake Visit Reasons: 3 mo f/u w/ labs Commercial Internship Required: No Commercial Internship Services: Commercial Internship Offered & Declined ( will translate ) Accompanied by: Spouse Allergies ciprofloxacin (CIPROFLOXACIN) Allergy (Unknown, Verified 04/05/25 11:59) RASH, anaphylaxis pioglitazone Allergy (Unknown, Verified 04/05/25 11:59) Swelling tamsulosin Allergy (Unknown, Verified 04/05/25 11:59) rash? HPI Comments Details: Mr. Brewster was seen in follow up for his chronic kidney disease. He is a diabetic. He is hypertensive and has been on medications. He has history of prostate cancer. He was thought to have diabetic nephropathy. He has been overweight, but improving. He denies any coronary artery disease, congestive heart failure, carotid stenosis, CVA, CHF, PUD or SHYLA. He denies taking excessive nonsteroidal anti-inflammatory medications. He denies chest pain, shortness of breath, proximal nocturnal dyspnea, orthopnea, pedal edema or orthostatic symptoms. He is on Jardiance now. He had a renal biopsy which show ed some focal and segmental changes along with diabetic nephropathy changes. He had a CT which showed A 1.5 cm right mid pole renal lesion [facility] Medical History Prostate CA Chronic diarrhea Overweight (BMI 25.0-29.9) Diabetic neuropathy Hypertension Urinary bladder cancer Obesity (BMI 30-39.9) Hypercholesterolemia GERD (gastroesophageal reflux disease) Lumbar spondylosis Type 2 diabetes mellitus with hyperglycemia Surgical History Hx of hernia repair History of prostate surgery History of colonoscopy History of cholecystectomy History of appendectomy Family History Father Diabetes Myocardial infarct Mother No problems noted. Maternal Grandmother Stomach cancer Maternal Uncle Cancer Social History Housing: Apartment Alcohol intake: never Patient Tobacco Use Status: Never used Tobacco Tobacco use type: Cigarette e-Cigarette/Vaping Use: Never Used Second Hand Smoke Exposure: No service: No Current occupational status: disabled Cognitive needs: No Hearing needs: No Vision needs: Yes Review of Systems Const All systems reviewed & are unremarkable except as noted in HPI and below Physical Exam Vital Signs: Last Vital Signs Pulse 67 04/05/25 11:57 BP 130/66 04/05/25 11:57 Pulse Ox 96 04/05/25 11:57 Oxygen Delivery Method Room Air 04/05/25 11:57 BMI result Body Mass Index 29.8 Const General: comfortable and no acute distress Orientation/consciousness: patient oriented x3 HEENT Head: Yes normocephalic Mouth: Normal oral and palatal mucosa present Eyes EOM: EOMs intact bilaterally Neck Neck: Yes supple Resp Auscultation: clear to auscultation bilaterally Cardio Jugular venous distension: no JVD Rate: regular rate GI Palpation (GI): Soft to palpation Auscultation: normal bowel sounds General: Yes no CVA tenderness Back/Spine/Pelvis Back: no CVA tenderness Skin General skin exam: no rashes or lesions noted Neuro General: patient oriented x3 and moves all extremities Extrem General: Yes no pedal edema Results Reviewed Nephrology Results: Hgb, (14.0-18.0) 14.5 g/dl 01/27/25 WBC, (4.8-10.8) 7.5 X10*3/uL 01/27/25 Plt Count, (160-400) 146 X10*3/uL L 01/27/25 Sodium, (135-145) 141 mmol/L 03/27/25 Potassium, (3.3-5.1) 4.2 mmol/L 03/27/25 Chloride, (96-108) 107 mmol/L 03/27/25 Carbon Dioxide, (22-29) 26 mmol/L 03/27/25 BUN, (9-16) 25 mg/dL H 03/27/25 Creatinine, (0.5-1.4) 1.94 mg/dL H 03/27/25 Calcium, (8.4-10.2) 9.5 mg/dL Δ 01/27/25 Urine Creatinine 118.32 mg/dL 01/27/25 Renal US 04/15/23 Assessment & Plan Assessment & Plan (1) Diabetic nephropathy: Code(s): E11.21 - Type 2 diabetes mellitus with diabetic nephropathy Category: Medical Qualifiers: Diabetes mellitus type: type 2 Qualified Code(s): E11.21 - Type 2 diabetes mellitus with diabetic nephropathy (2) Hypertension: Code(s): I10 - Essential (primary) hypertension Category: Medical Qualifiers: Hypertension type: essential hypertension Qualified Code(s): I10 - Essential (primary) hypertension (3) CKD (chronic kidney disease) stage 3, GFR 30-59 ml/min: Code(s): N18.30 - Chronic kidney disease, stage 3 unspecified Category: Medical Qualifiers: Chronic kidney disease stage 3 subtype: stage 3a (GFR 45-59) Qualified Code(s): N18.31 - Chronic kidney disease, stage 3a Plan Mr. 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 He needs to lose weight. His urine output is good. He has had prostate cancer and is followed up by Dr. Stark. He should continue Jardiance and he current dose of enalapril 2.5 mg daily. He should avoid nonsteroidal anti-inflammatory medications, maintain good hydration and cut back salt in the diet. He will need F/U imaging of his kidney lesion. I did not make any other medication changes at this visit. All his and his 's questions were answered. Follow-up given Orders: Orders Electrolytes 3 Months E11.21 - Type 2 diabetes mellitus with diabetic nephropathy Blood Urea Nitrogen 3 Months E11. - Type 2 diabetes mellitus with diabetic nephropathy Creatinine 3 Months E11.21 - Type 2 diabetes mellitus with diabetic nephropathy Coding Level of Care Code Est Pt Level 4 (97642) Diagnoses Diabetic nephropathy associated with type 2 diabetes mellitus E11. Diabetes mellitus type: type 2 Essential hypertension I10 Hypertension type: essential hypertension Stage 3a chronic kidney disease N18.31 Chronic kidney disease stage 3 subtype: stage 3a (GFR 45-59)
== END 2025-04-05 12:07 | disposition home or self-care (01) ==
LOC: HO.HKA 11:02
PROVIDERS: PCP Internal Medicine; Visit Provider Internal Medicine Nephrology
DX: E11.21 Type 2 diabetes mellitus with diabetic nephropathy (principal); I10 Essential (primary) hypertension; N18.31 Chronic kidney disease, stage 3a
CPT/HCPCS: 99214

== ENCOUNTER → 2025-04-05 11:01 | Outpatient (BNVA) | payer OTHER, SELFPAY | PROVIDERS: PCP Internal Medicine; Visit Provider Internal Medicine Nephrology | DX: I12.9 Hypertensive chronic kidney disease with stage 1 through stage 4 chronic kidney disease, or unspecified chronic kidney disease (principal); N18.31 Chronic kidney disease, stage 3a; E11.22 Type 2 diabetes mellitus with diabetic chronic kidney disease; Z79.84 Long term (current) use of oral hypoglycemic drugs; Z79.899 Other long term (current) drug therapy | CPT/HCPCS: 99212 ==